=== PATIENT | male | born 1945 | race American Indian/Alaskan Native ===

== ENCOUNTER 2020-06-27 07:18 | Outpatient (REF) | payer MEDICARE, SELFPAY ==
[2020-06-27 09:14] LABS: MANUAL DIFF FLAG NO
[2020-06-27 09:37] LABS: Basophils Absolute Auto 0.1 X10*3/uL (0.0-0.2); Basophils Percent Auto 0.8 % (0-2); Eosinophils Absolute Auto 0.4 X10*3/uL (0.0-0.4); Eosinophils Percent Auto 5.9 % (0-4); Hemoglobin 16.2 g/dl (14.0-18.0); Imm Gran Abs Auto 0.01 X10*3/uL (0.00-0.03); Imm Gran Pct Auto 0.1 % (0.0-0.4); Lymphocytes Absolute Auto 2.6 X10*3/uL (1.2-4.9); Lymphocytes Percent Auto 35.3 % (20-40); Mean Corpuscular HGB Conc 32.4 g/dl (31.0-36.0); Mean Corpuscular Hemoglobin 31.7 pg (27.0-33.0); Mean Corpuscular Volume 97.8 fL (80-98); Mean Platelet Volume 11.4 fL (9.4-12.4); Monocytes Absolute Auto 0.7 X10*3/uL (0.1-1.2); Monocytes Percent Auto 8.7 % (2-11); Neutrophils Absolute Auto 3.7 X10*3/uL (2.0-8.3); Neutrophils Percent Auto 49.2 % (45-73); Platelet Count 215 X10*3/uL (160-400); Red Blood Count 5.11 X10*6/uL (4.60-5.80); Red Cell Distribution Width 13.3 % (11.0-16.0); White Blood Count 7.5 X10*3/uL (4.8-10.8)
[2020-06-27 10:11] LABS: Anion Gap 12 (12-20); Blood Urea Nitrogen 16 mg/dL (9-16); Calcium 8.9 mg/dL (8.4-10.2); Carbon Dioxide 29 mmol/L (22-29); Chloride 106 mmol/L (96-108); Cholesterol 173 mg/dL; Estimated Glomerular Filt Rate > 60; Glucose Fasting 91 mg/dL (60-99); HDL Cholesterol 34 mg/dL; LDL Cholesterol Calculated 116 mg/dl; Potassium 4.2 mmol/l (3.3-5.1); Sodium 143 mmol/L (135-145); Triglycerides 117 mg/dL
== END 2020-06-27 07:19 | disposition home or self-care (01) ==
LOC: HO.LAB 07:18
PROVIDERS: PCP Internal Medicine; Visit Provider Internal Medicine
DX: I10 Essential (primary) hypertension (principal)
CPT/HCPCS: 36415; 80048; 80061; 85025

== ENCOUNTER 2020-07-28 07:36 | Outpatient (REF) | payer MEDICARE, SELFPAY ==
--- NOTE | 2020-07-28 07:41 | EMG_ITS ---
Bilateral median and ulnar motor and sensory studies were performed. Bilateral radial sensory studies were performed and paraspinal muscles were tested with a needle. IMPRESSION: [id number] right and mild left median neuropathy across carpal tunnel. MD JACQUELYN Tanner/FELICIANO / [phone]
== END 2020-07-28 07:37 | disposition home or self-care (01) ==
LOC: HO.NEURO 07:36
PROVIDERS: Visit Provider Internal Medicine
DX: G56.13 Other lesions of median nerve, bilateral upper limbs (principal)
CPT/HCPCS: 95860; 95886; 95911

== ENCOUNTER → 2020-10-11 12:23 | Outpatient (BNVA) | payer MEDICARE, SELFPAY | PROVIDERS: Visit Provider Orthopaedic Surgery | DX: G56.01 Carpal tunnel syndrome, right upper limb (principal); G56.02 Carpal tunnel syndrome, left upper limb | CPT/HCPCS: 99202 ==

== ENCOUNTER 2020-10-31 12:53 | Day surgery (SDC) | payer MEDICARE, SELFPAY ==
[2020-10-31 13:39] VITALS: BMI 32.3
[2020-10-31 13:41] VITALS: BP 154/74; PULSE 74; RESP 20; TEMP 36.9; O2SAT 96
--- NOTE | 2020-10-31 14:03 | W.PM.OPN ---
Operative Note Operative Note Date of Service: 10/31/20 Narrative: Preop diagnosis: 1. Left Carpal tunnel syndrome Postop diagnosis: 1. Left Carpal tunnel syndrome Procedure: 1. Left Carpal tunnel release Surgeon: Bonnie Bhatia MD Anesthesia: local block using 1% lidocaine with epinephrine Findings: Thickened transverse carpal ligament. EBL: Less than 5 mL Specimens: None Complications: None Disposition: Brought to recovery room in stable condition Plan: Follow-up for 7-10 days for wound check and suture removal Indications: The patient is 74 years old, with left carpal tunnel syndrome that has been unresponsive to nonoperative management. The risks and benefits of operative treatment including but not limited to risk of damage to blood vessels, nerves, tendons, infection, persistent pain, persistent symptoms, or possible need for additional surgery were discussed with the patient and the patient wishes to proceed with surgery. Procedure: Once consent was obtained a local block was performed using a combination of 1% lidocaine with epinephrine. The patient was then brought back to the operating suite and placed on the operative table in supine position. A tourniquet was applied to the proximal aspect of the left upper extremity and the limb was prepped and draped in a standard surgical fashion. Once assured that we had a good block, a 1.5 cm longitudinal incision was made centered over the left carpal tunnel. The incision was made through the skin to the subcutaneous tissues using a #15 blade. Dissection was made down to the level of the transverse carpal ligament with care being taken to protect the palmar cutaneous nerve. Once the transverse carpal ligament was clearly visualized, a longitudinal incision was made in the transverse carpal ligament 1st using a #15 blade, then using tenotomy scissors under direct visualization. Care was taken to look for and protect the motor branch of the median nerve when seen in this area. Once satisfied with our carpal tunnel release the wound was copiously irrigated with normal saline and hemostasis was obtained with a brief period of local pressure. The skin edges were reapproximated with some 5.0 nylon suture material and a sterile dressing was applied. The patient appears to have tolerated the procedure well and with no complications. All digits were well vascularized at the conclusion of the case. A
--- NOTE | 2020-10-31 14:17 | PC.NURSE ---
DR. Suzan GAITAN COMPLETED A LOCAL BL0CK AT BEDSIDE. PT TOLERATED WITHOUT DIFFICULTY.
[2020-10-31 15:22] VITALS: BP 148/73; PULSE 72; RESP 18; TEMP 36.6
== END 2020-10-31 15:44 | disposition home or self-care (01) ==
PROVIDERS: PCP Internal Medicine; Visit Provider Orthopaedic Surgery
PROC: (CPT 64721; principal; 2020-10-31 14:10)
DX: G56.02 Carpal tunnel syndrome, left upper limb (principal); F17.210 Nicotine dependence, cigarettes, uncomplicated
CPT/HCPCS: 64721

== ENCOUNTER → 2020-11-09 09:20 | Outpatient (BNVA) | payer MEDICARE, SELFPAY | PROVIDERS: PCP Internal Medicine; Visit Provider Orthopaedic Surgery | DX: G56.01 Carpal tunnel syndrome, right upper limb (principal); G56.02 Carpal tunnel syndrome, left upper limb | CPT/HCPCS: 99212 ==

== ENCOUNTER 2020-12-08 12:31 | Day surgery (SDC) | payer MEDICARE, SELFPAY ==
--- NOTE | 2020-12-08 12:41 | MHC.SHP ---
Pre-Procedural Eval Section B Chief Complaint: carpal tunnel syndrome Allergies: Allergies Allergy/AdvReac Type Severity Reaction Status Date / Time No Known Allergies Allergy Verified 11/09/20 09:30 Plan I have reviewed the history and physical and performed a pertinent physical examination on my patient. No changes have occurred unless specified.
--- NOTE | 2020-12-08 12:42 | W.PM.OPN ---
Operative Note Operative Note Date of Service: 12/08/20 Narrative: Preop diagnosis: 1. Right Carpal tunnel syndrome Postop diagnosis: 1. Right Carpal tunnel syndrome Procedure: 1. Right Carpal tunnel release Surgeon: Bonnie Bhatia MD Anesthesia: local block using 1% lidocaine with epinephrine Findings: Thickened transverse carpal ligament. EBL: Less than 5 mL Specimens: None Complications: None Disposition: Brought to recovery room in stable condition Plan: Follow-up for 7-10 days for wound check and suture removal Indications: The patient is 75 years old, with right carpal tunnel syndrome that has been unresponsive to nonoperative management. The risks and benefits of operative treatment including but not limited to risk of damage to blood vessels, nerves, tendons, infection, persistent pain, persistent symptoms, or possible need for additional surgery were discussed with the patient and the patient wishes to proceed with surgery. Procedure: Once consent was obtained a local block was performed using a combination of 1% lidocaine with epinephrine. The patient was then brought back to the operating suite and placed on the operative table in supine position. A tourniquet was applied to the proximal aspect of the right upper extremity and the limb was prepped and draped in a standard surgical fashion. Once assured that we had a good block, a 1.5 cm longitudinal incision was made centered over the right carpal tunnel. The incision was made through the skin to the subcutaneous tissues using a #15 blade. Dissection was made down to the level of the transverse carpal ligament with care being taken to protect the palmar cutaneous nerve. Once the transverse carpal ligament was clearly visualized, a longitudinal incision was made in the transverse carpal ligament 1st using a #15 blade, then using tenotomy scissors under direct visualization. Care was taken to look for and protect the motor branch of the median nerve when seen in this area. Once satisfied with our carpal tunnel release the wound was copiously irrigated with normal saline and hemostasis was obtained with a brief period of local pressure. The skin edges were reapproximated with some 5.0 nylon suture material and a sterile dressing was applied. The patient appears to have tolerated the procedure well and with no complications. All digits were well vascularized at the conclusion of the case.
[2020-12-08 12:47] VITALS: BMI 33.2
[2020-12-08 12:49] VITALS: BP 141/75; PULSE 74; RESP 16; TEMP 36.2; O2SAT 95
[2020-12-08 14:09] VITALS: BP 122/62; PULSE 67; RESP 18; O2SAT 93
== END 2020-12-08 14:18 | disposition home or self-care (01) ==
PROVIDERS: PCP Internal Medicine; Visit Provider Orthopaedic Surgery
PROC: (CPT 64721; principal; 2020-12-08 14:00)
DX: G56.01 Carpal tunnel syndrome, right upper limb (principal); F17.210 Nicotine dependence, cigarettes, uncomplicated
CPT/HCPCS: 64721

== ENCOUNTER → 2020-12-19 08:46 | Outpatient (BNVA) | payer MEDICARE, SELFPAY | PROVIDERS: PCP Internal Medicine; Visit Provider Orthopaedic Surgery | DX: G56.01 Carpal tunnel syndrome, right upper limb (principal); G56.02 Carpal tunnel syndrome, left upper limb | CPT/HCPCS: 99212 ==

== ENCOUNTER 2021-03-24 13:36 | Outpatient (REF) | payer MEDICARE, SELFPAY ==
--- NOTE | ~2021-03-24 | XR_ITS ---
EXAMINATION: XR WRIST, RIGHT XR WRIST, LEFT CLINICAL INFORMATION: Pain. COMPARISON: Left hand pain dated 02/11/2012. TECHNIQUE: AP, oblique, scaphoid, and lateral views of the right and left wrist. FINDINGS: Right Wrist: No acute fracture or dislocation. Mild joint space narrowing with small marginal osteophytes at the triscaphe and 1st carpometacarpal joints. No osseous erosion. Dystrophic ossification adjacent to the 2nd metacarpal. Left Wrist: No acute fracture or dislocation. Tiny marginal osteophyte at the triscaphe and 1st carpometacarpal joints. No osseous erosion. No abnormal soft tissue calcification. XR/XR wrist LT 2V IMPRESSION: RIGHT WRIST: Minimal degenerative arthritis at the triscaphe and 1st carpometacarpal joints. LEFT WRIST: Minimal degenerative arthritis at the triscaphe and 1st carpometacarpal joints.
--- NOTE | ~2021-03-24 | XR_ITS ---
EXAMINATION: XR WRIST, RIGHT XR WRIST, LEFT CLINICAL INFORMATION: Pain. COMPARISON: Left hand pain dated 02/11/2012. TECHNIQUE: AP, oblique, scaphoid, and lateral views of the right and left wrist. FINDINGS: Right Wrist: No acute fracture or dislocation. Mild joint space narrowing with small marginal osteophytes at the triscaphe and 1st carpometacarpal joints. No osseous erosion. Dystrophic ossification adjacent to the 2nd metacarpal. Left Wrist: No acute fracture or dislocation. Tiny marginal osteophyte at the triscaphe and 1st carpometacarpal joints. No osseous erosion. No abnormal soft tissue calcification. XR/XR wrist RT 2V IMPRESSION: RIGHT WRIST: Minimal degenerative arthritis at the triscaphe and 1st carpometacarpal joints. LEFT WRIST: Minimal degenerative arthritis at the triscaphe and 1st carpometacarpal joints.
== END 2021-03-24 13:37 | disposition home or self-care (01) ==
LOC: HO.XRAY 13:36
PROVIDERS: PCP Internal Medicine; Visit Provider Internal Medicine
DX: M25.532 Pain in left wrist (principal); M25.531 Pain in right wrist
CPT/HCPCS: 73100

== ENCOUNTER 2021-04-27 12:56 | Outpatient (REF) | payer MEDICARE, SELFPAY ==
--- NOTE | ~2021-04-27 | US_ITS ---
EXAMINATION: NONINVASIVE ASSESSMENT OF THE ARTERIES OF BOTH LOWER EXTREMITIES Yareil Howell MD CLINICAL INFORMATION: Peripheral vascular disease TECHNIQUE: Bilateral lower extremity duplex ultrasound was performed with velocity measurements and waveform analysis in the common femoral arteries, profunda femoris arteries, proximal mid and distal superficial femoral arteries, popliteal arteries and tibial vessels. This study was performed only at rest. COMPARISON: None FINDINGS: Velocities in cm/sec and phasicity as well as the presence of plaque are reported below. RIGHT LEG: Minimal plaque is present and triphasic flow is noted throughout with the exception of the posterior tibial artery which has biphasic flow. Collateral vessels can be seen arising from the posterior tibial artery. The right peroneal was not seen. Common Femoral: 120 Profunda Femoris: 182 Proximal SFA: 127 Mid SFA: 86 Distal SFA: 15 Popliteal: 72 Posterior tibial: 153 LEFT LEG: Minimal plaque present with moderate plaque in the popliteal. Triphasic flow noted down to the popliteal with the exception of the proximal SFA where there is biphasic flow. The posterior tibial artery is occluded but the peroneal is patent. Common Femoral: 120 Profunda Femoris: 72 Proximal SFA: 93 Mid SFA: 97 Distal SFA: 103 Popliteal: 93 Posterior tibial: Occluded Peroneal artery: 60 US/US arterial duplex LE BI IMPRESSION: There is peripheral vascular disease present, minimal on the right was mild plaque and runoff via the posterior tibial artery with occluded peroneal. Disease on the left shows an occluded posterior tibial artery with runoff via the peroneal only.
== END 2021-04-27 12:57 | disposition home or self-care (01) ==
LOC: HO.US 12:56
PROVIDERS: Visit Provider Internal Medicine
DX: I73.9 Peripheral vascular disease, unspecified (principal); I77.1 Stricture of artery
CPT/HCPCS: 93925

== ENCOUNTER 2021-07-20 07:49 | Outpatient (REF) | payer MEDICARE, SELFPAY ==
[2021-07-20 08:10] LABS: MANUAL DIFF FLAG NO
[2021-07-20 09:15] LABS: Basophils Absolute Auto 0.1 X10*3/uL (0.0-0.2); Basophils Percent Auto 0.7 % (0-2); Eosinophils Absolute Auto 0.4 X10*3/uL (0.0-0.4); Hemoglobin 15.4 g/dl (14.0-18.0); Imm Gran Abs Auto 0.01 X10*3/uL (0.00-0.03); Imm Gran Pct Auto 0.1 % (0.0-0.4); Mean Corpuscular HGB Conc 33.5 g/dl (31.0-36.0); Mean Corpuscular Hemoglobin 31.6 pg (27.0-33.0); Mean Corpuscular Volume 94.5 fL (80.0-98.0); Mean Platelet Volume 11.2 fL (9.4-12.4); Monocytes Absolute Auto 0.6 X10*3/uL (0.1-1.2); Monocytes Percent Auto 8.2 % (2-11); Neutrophils Absolute Auto 4.2 x10*3/uL (2.0-8.3); Platelet Count 183 X10*3/uL (160-400); Red Blood Count 4.87 X10*6/uL (4.60-5.80); Red Cell Distribution Width 13.4 % (11.0-16.0); White Blood Count 7.2 X10*3/uL (4.8-10.8)
[2021-07-20 09:32] LABS: Alanine Aminotransferase 18 U/L (0-40); Albumin Level 3.9 g/dL (3.5-5.0); Alkaline Phosphatase 75 U/L (39-117); Anion Gap 10 (12-20); Aspartate Amino Transferase 19 U/L (5-37); Bilirubin Total 0.8 mg/dL (0.0-1.0); Blood Urea Nitrogen 19 mg/dL (9-16); Carbon Dioxide 26 mmol/L (22-29); Chloride 107 mmol/L (96-108); Cholesterol 153 mg/dL; Estimated Glomerular Filt Rate > 60; Glucose Fasting 96 mg/dL (60-99); HDL Cholesterol 31 mg/dL; LDL Cholesterol Calculated 101 mg/dl; Potassium 4.1 mmol/L (3.3-5.1); Sodium 139 mmol/L (135-145); Total Protein 6.8 g/dL (6.5-8.0); Triglycerides 107 mg/dL
[2021-07-20 10:10] LABS: Prostate Specific Antigen Scr 9.03 ng/mL (<0.05-4.0); Thyroid Stimulating Hormone 1.64 uIU/mL (0.32-4.0)
== END 2021-07-20 07:50 | disposition home or self-care (01) ==
LOC: HO.LAB 07:49
PROVIDERS: PCP Internal Medicine; Visit Provider Internal Medicine
DX: Z00.00 Encounter for general adult medical examination without abnormal findings (principal); Z12.5 Encounter for screening for malignant neoplasm of prostate; E03.9 Hypothyroidism, unspecified; R35.1 Nocturia; E11.9 Type 2 diabetes mellitus without complications
CPT/HCPCS: 36415; 80053; 80061; 84153; 84443; 85025

== ENCOUNTER 2021-09-14 08:13 | Outpatient (REF) | payer MEDICARE, SELFPAY ==
[2021-09-14 11:25] LABS: Binax Internal Control QC Valid; Binax Now Covid-19 Ag Negative (Negative)
== END 2021-09-14 08:14 | disposition home or self-care (01) ==
LOC: HO.HMGCLDS 08:13
PROVIDERS: Visit Provider Internal Medicine
DX: Z20.822 Contact with and (suspected) exposure to COVID-19 (principal)
CPT/HCPCS: 36415; C9803

== ENCOUNTER 2021-11-14 08:00 | Outpatient (RCR) | payer MEDICARE, SELFPAY ==
[2021-09-19 08:13] VITALS: BP 114/65; PULSE 65
--- NOTE | 2021-09-19 09:16 | MHC.PT.EP ---
[facility] [place] Office [place] Office [place] Office [address] [place] [address] Dr Sebastián Parnell [address] [phone] F: [phone] F: [phone] F: [phone] F: [phone] Physical Therapy Plan of Care Date of Evaluation: Date of Surgery: Diagnosis: SHOULDER PAIN Assessment: 75 YO MALE REF TPO PT FOR Lt > Rt SH PAIN AFTER LIFTING 40 LB CONTAINER OF JASON LITTER IN JUN 2021- HE HAS A H/O APOLONIA CTS RELEASE; Pt HAS DECR AROM IN Lt > Rt SH, WEAKNESS IN LEFT > RIGHT SH GIRDLE/ SCAP, (+) SOFT TISSUE IRRIT IN APOLONIA TRAPS AND DELTS, (+) SCOLIOSIS W POSTURAL INFLUENCE, AND PAIN. FUNCTIONALLY, Pt FAVORS LEFT SH W ALL ADLs AND IS LIMITED W REACHING, LIFTING, CARRYING ITEMS. HE APPEARS TO HAVE RC INVOLVEMENT IN LEFT SH- HE IS A GOOD CANDIDATE FOR SKILLED PT TO ADDRESS THE ABOVE FINDINGS AND DEV A PROGR HEP (Pt VOICED CONCERN RE HIS CO-PAY AND CURRENT EXPENSES REQUIRED FOR ROOF REPAIR). Frequency and Duration: The patient will be seen 1- 2 x WK x 4 WKS Short Term Goals: Pt'S Lt > Rt SH PAIN DECR TO 2-3/10 IN 2 WKS Pt DEMON IMPROVED AROM LEFT SH IN 2 WKS Engineering Operations Leader Goals: Pt'S Lt SH GIRDLE STRENGTH IMPROVED BY 1/2 GRADE IN 4 WKS Pt INDEP W HEP PROGR AND SELF-SX MGMT TECHN IN 4 WKS Pt RESUME REG ADLs W DECR SXS EVIDENT W IMPROVED SPADI SCORE BY 5-8 POINTS (AT EVAL 61/130) IN 4 WKS Treatment Plan: Modalities to reduce pain, spasms and effusion. Manual therapy to restore motion and function. Therapeutic exercise to improve strength and flexibility. Neuromuscular re-education for posture and balance. Therapeutic activities to return to functional activities of daily living. Electronically signed by: Nakia Bryan,PT Please sign and return to therapist. Thank you for your referral.
--- NOTE | 2021-11-14 11:44 | MHC.PT.DC ---
[facility] [place] Office [place] Office [place] Office [address] Sebastián Parnell [address] [phone] F: [phone] F: [phone] F: [phone] F: [phone] Physical Therapy Discharge Report Diagnosis: SHOULDER PAIN Date of Surgery: Date of Evaluation: 09/19/21 Date of Discharge: 11/14/21 Treatments to Date: 10 Cancellations to Date: 1 No Shows to Date: 0 Discharge Status: Achieved Goals Improved Function Independent with HEP Discharge Summary: MR TOTH HAS PROGRESSED IN PT FOR HIS RIGHT SHOULDER PAIN, W RESPECT TO MULTIPLE JOINT PAIN/ LBP. Pt DEMON IMPROVED POSTURAL AWARENESS, INCR AROM Rt SH, INCREASED ACTIVITY/ FUNCT MOB DIEGO, AND FLUCTUATING LEVELS OF PAIN- NO LONGER CONSISTENT. HIS SPADI SCORE AT EVAL WAS 61/130 AND TODAY AT D/C, 55/130, REFLECTING IMPROVED FUNCTIONAL TOLERANCE/ INDEPENDENCE. Pt D/C THIS DATE W HIS HEP. HE MET HIS PT GOALS TO MAX POTENTIAL AT THIS TIME. Electronically signed by: Nakia Bryan,PT Please sign and return to therapist. Thank you for your referral.
== END 2021-11-14 11:45 | disposition home or self-care (01) ==
LOC: HO.PT 08:00
PROVIDERS: PCP Internal Medicine; Visit Provider Internal Medicine
DX: M25.511 Pain in right shoulder (principal); M25.512 Pain in left shoulder
CPT/HCPCS: 97110; 97161

== ENCOUNTER 2021-12-22 09:11 | Outpatient (REF) | payer MEDICARE, SELFPAY ==
[2021-12-22 10:30] LABS: Prostate Specific Antigen Scr 10.82 ng/mL (<0.05-4.0)
== END 2021-12-22 09:12 | disposition home or self-care (01) ==
LOC: HO.LAB 09:11
PROVIDERS: PCP Internal Medicine; Visit Provider Internal Medicine
DX: Z12.5 Encounter for screening for malignant neoplasm of prostate (principal)
CPT/HCPCS: 36415; 84153

== ENCOUNTER → 2022-01-23 10:24 | Outpatient (BNVA) | payer MEDICARE, SELFPAY | PROVIDERS: PCP Internal Medicine; Visit Provider Urology | DX: N41.1 Chronic prostatitis (principal); R97.20 Elevated prostate specific antigen [PSA] | CPT/HCPCS: 99202 ==

== ENCOUNTER 2022-02-28 09:49 | Outpatient (REF) | payer MEDICARE, SELFPAY ==
[2022-02-28 11:11] LABS: PSA,Total (Free>4and<10) 9.26 ng/mL (0.00-4.00)
[2022-03-01 12:06] LABS: Free Prostate Spec Ag 0.8 ng/mL; Percent Free Prostate Spec Ag NOT CALCULATED % (calc) (>25); Prostate Specific Ag Total 10.4 ng/mL (< OR = 4.0)
== END 2022-02-28 09:50 | disposition home or self-care (01) ==
LOC: HO.LAB 09:49
PROVIDERS: PCP Internal Medicine; Visit Provider Urology
DX: Z12.5 Encounter for screening for malignant neoplasm of prostate (principal); R97.20 Elevated prostate specific antigen [PSA]
CPT/HCPCS: 36415; 84153; 84154

== ENCOUNTER → 2022-03-07 10:39 | Outpatient (BNVA) | payer MEDICARE, SELFPAY | PROVIDERS: PCP Internal Medicine; Visit Provider Urology | DX: N41.1 Chronic prostatitis (principal); N52.9 Male erectile dysfunction, unspecified; N40.1 Benign prostatic hyperplasia with lower urinary tract symptoms; N13.8 Other obstructive and reflux uropathy; R33.8 Other retention of urine | CPT/HCPCS: 99212 ==

== ENCOUNTER 2022-06-29 09:25 | Outpatient (REF) | payer MEDICARE, SELFPAY ==
[2022-06-29 11:48] LABS: Prostate Specific Antigen 6.19 ng/mL (<0.05-4.0)
== END 2022-06-29 09:26 | disposition home or self-care (01) ==
LOC: HO.LAB 09:25
PROVIDERS: PCP Internal Medicine; Visit Provider Urology
DX: R97.20 Elevated prostate specific antigen [PSA] (principal); Z12.5 Encounter for screening for malignant neoplasm of prostate
CPT/HCPCS: 36415; 84153

== ENCOUNTER → 2022-07-06 14:40 | Outpatient (BNVA) | payer MEDICARE, SELFPAY | PROVIDERS: PCP Internal Medicine; Visit Provider Urology | DX: R97.20 Elevated prostate specific antigen [PSA] (principal); N41.1 Chronic prostatitis; N52.9 Male erectile dysfunction, unspecified | CPT/HCPCS: 99212 ==

== ENCOUNTER 2022-09-24 14:05 | Outpatient (REF) | payer MEDICARE, SELFPAY ==
[2022-09-24 14:33] LABS: COVID-19 Test Negative (Negative); IDNOW Serial# BCCEAD1C
== END 2022-09-24 14:06 | disposition home or self-care (01) ==
LOC: HO.LAB 14:05
PROVIDERS: Visit Provider Internal Medicine
DX: Z20.822 Contact with and (suspected) exposure to COVID-19 (principal)
CPT/HCPCS: 87635; C9803

== ENCOUNTER 2022-12-28 10:13 | Outpatient (REF) | payer MEDICARE, SELFPAY ==
[2022-12-28 12:03] LABS: PSA,Total (Free>4and<10) 7.15 ng/mL (0.00-4.00)
[2023-01-01 10:09] LABS: Free Prostate Spec Ag 0.5 ng/mL; Percent Free Prostate Spec Ag 8 % (calc) (>25); Prostate Specific Ag Total 5.9 ng/mL (< OR = 4.0)
== END 2022-12-28 10:14 | disposition home or self-care (01) ==
LOC: HO.LAB 10:13
PROVIDERS: PCP Internal Medicine; Visit Provider Urology
DX: Z12.5 Encounter for screening for malignant neoplasm of prostate (principal); R97.20 Elevated prostate specific antigen [PSA]
CPT/HCPCS: 36415; 84153; 84154

== ENCOUNTER → 2023-01-04 08:56 | Outpatient (BNVA) | payer MEDICARE, SELFPAY | PROVIDERS: PCP Internal Medicine; Visit Provider Urology | DX: N52.9 Male erectile dysfunction, unspecified (principal); N41.1 Chronic prostatitis | CPT/HCPCS: 99212 ==

== ENCOUNTER 2023-02-27 06:23 | Outpatient (REF) | payer MEDICARE, SELFPAY ==
[2023-02-27 06:32] LABS: MANUAL DIFF FLAG NO
[2023-02-27 07:42] LABS: Basophils Percent Auto 0.4 % (0-2); Eosinophils Absolute Auto 0.3 X10*3/uL (0.0-0.4); Eosinophils Percent Auto 3.9 % (0-4); Hematocrit 45.3 % (42.0-52.0); Imm Gran Abs Auto 0.03 X10*3/uL (0.00-0.03); Imm Gran Pct Auto 0.4 % (0.0-0.4); Lymphocytes Absolute Auto 2.7 X10*3/uL (1.2-4.9); Lymphocytes Percent Auto 34.6 % (20-40); Mean Corpuscular HGB Conc 33.1 g/dl (31.0-36.0); Mean Corpuscular Hemoglobin 31.8 pg (27.0-33.0); Mean Platelet Volume 11.9 fL (9.4-12.4); Monocytes Absolute Auto 0.7 X10*3/uL (0.1-1.2); Monocytes Percent Auto 8.4 % (2-11); Neutrophils Absolute Auto 4.2 x10*3/uL (2.0-8.3); Neutrophils Percent Auto 52.3 % (45-73); Platelet Count 207 X10*3/uL (160-400); Red Blood Count 4.72 X10*6/uL (4.60-5.80); Red Cell Distribution Width 13.7 % (11.0-16.0); White Blood Count 7.9 X10*3/uL (4.8-10.8)
[2023-02-27 08:07] LABS: Alanine Aminotransferase 18 U/L (0-40); Albumin Level 4.1 g/dL (3.5-5.0); Alkaline Phosphatase 76 U/L (39-117); Anion Gap 13 (12-20); Aspartate Amino Transferase 19 U/L (5-37); Bilirubin Total 0.9 mg/dL (0.0-1.0); Blood Urea Nitrogen 18 mg/dL (9-16); Calcium 9.3 mg/dL (8.4-10.2); Carbon Dioxide 25 mmol/L (22-29); Chloride 109 mmol/L (96-108); Cholesterol 155 mg/dL; Estimated Glomerular Filt Rate > 60; Glucose Fasting 97 mg/dL (60-99); HDL Cholesterol 35 mg/dL; LDL Cholesterol Calculated 101 mg/dl; Potassium 4.1 mmol/L (3.3-5.1); Sodium 143 mmol/L (135-145); Total Protein 7.2 g/dL (6.5-8.0); Triglycerides 95 mg/dL
[2023-02-27 08:22] LABS: Thyroid Stimulating Hormone 1.74 uIU/mL (0.32-4.0)
== END 2023-02-27 06:24 | disposition home or self-care (01) ==
LOC: HO.LAB 06:23
PROVIDERS: PCP Internal Medicine; Visit Provider Internal Medicine
DX: E03.9 Hypothyroidism, unspecified (principal); D64.9 Anemia, unspecified; I10 Essential (primary) hypertension; E78.5 Hyperlipidemia, unspecified
CPT/HCPCS: 36415; 80053; 80061; 84443; 85025

== ENCOUNTER 2023-04-03 08:34 | Outpatient (AMB) | payer MEDICARE, SELFPAY ==
--- NOTE | 2023-04-03 08:40 | MHC.PC.OV ---
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 Accompanied by: Self / Same As Patient Allergies No Known Allergies Allergy (Verified 04/03/23 08:40) Medication List - Last Reconciled 04/03/23 by Freddy Johnston MD amlodipine 10 mg PO DAILY atenolol 25 mg PO DAILY cyclobenzaprine 10 mg PO TID dicyclomine 20 mg PO QID finasteride 5 mg PO DAILY 90 days furosemide 20 mg PO DAILY naproxen 500 mg PO BID tizanidine 4 mg PO Q8H PRN Tobacco use date assessed: 02/26/23 Fall risk assessment: 1 Fall in past year Last assessed Fall Risk: 04/03/23 Dental Screening Dental Screen Date: 04/03/23 Did you have a dental visit in the last 12 months?: Yes Was dental information given to patient?: Patient has dentist HPI 3mth f/u HPI Details HTN spinal stenosis and OA knees; will be seeing ortho [facility] Medical History Obesity Surgical History History of carpal tunnel surgery History of lumbar laminectomy Family History Father No problems noted. Mother No problems noted. Daughter Mental health disorder Social History Housing: House Alcohol intake: current Alcohol intake frequency: holidays/special occasions only Patient Tobacco Use Status: Current someday Tobacco user e-Cigarette/Vaping Use: Never Used Second Hand Smoke Exposure: No service: No Current occupational status: retired Cognitive needs: No Hearing needs: No Vision needs: No Questionnaire PHQ-9 Over the last 2 weeks, how often have you been bothered by any of the following problems? Depression Screening Interpretation: Negative Source: Developed by Drs. Joe Gonzalez, Lauren Basurto, Raj Pugh and colleagues, with an educational ferdinand from [employer]. Thrive Questionnaire Date Thrive assessed: 10/01/22 Currently or been in a relationship where the following occur: no concerns reported HANSEL-7 AMB Questionnaire HANSEL-7 Date HANSEL - 7 assessed: 10/01/22 Source: Developed by Drs. Joe Gonzalez, Lauren Basurto, Raj Pugh and colleagues, with an educational ferdinand from [employer]. Review of Systems Const Denies chills, Denies headache(s) and Denies weight loss ENT Denies headache(s) Card Denies chest pain, Denies syncope, Denies irregular heart rhythm and Denies dyspnea Resp Denies chest congestion, Denies cough and Denies dyspnea GI Denies abdominal pain, Denies change in stool character, Denies nausea and Denies vomiting Musc Denies deformity and Denies joint swelling Neuro Denies syncope and Denies headache(s) Physical exam (Primary Care) Vital Signs: Last Vital Signs Pulse 55 04/03/23 08:42 BP 128/60 04/03/23 08:42 Pulse Ox 97 04/03/23 08:42 BMI result Body Mass Index 31.4 Tobacco/Smoking Status: Tobacco use Status Tobacco use date assessed 02/26/23 04/03/23 08:41 Patient Tobacco Use Status Current someday Tobacco 04/03/23 08:41 e-Cigarette/Vaping Use Never Used 04/03/23 08:41 Depression Screening Interpretation: Negative Thrive Assessment: Date of Thrive Assessment Date Thrive assessed 10/01/22 04/03/23 08:41 Currently or been in a relationship where the following occur: no concerns reported Const General: cooperative, comfortable and no acute distress Resp Effort & Inspection: normal respiratory effort Auscultation: clear to auscultation bilaterally Percussion: percussion normal Cardio Jugular venous distension: no JVD Rate: regular rate Rhythm: regular rhythm GI Inspection: Yes normal to inspection Assessment and Plan Assessment & Plan (1) Hypertension: Code(s): I10 - Essential (primary) hypertension Plan: stable; same rx (2) Spinal stenosis: Code(s): M48.00 - Spinal stenosis, site unspecified Plan: stable; (3) Arthritis of knee: Code(s): M17.10 - Unilateral primary osteoarthritis, unspecified knee Plan: per ortho Medications: Refilled atenolol 25 mg PO DAILY 90 tabs 8RF Coding Level of Care Code Tele Est Pt Level 4 (21824) Diagnoses Hypertension I10 Spinal stenosis M48.00 Arthritis of knee M17.10
[2023-04-03 08:42] VITALS: BP 128/60; PULSE 55; O2SAT 97; BMI 31.4
== END 2023-04-03 08:54 | disposition home or self-care (01) ==
PROVIDERS: PCP Internal Medicine; Visit Provider Internal Medicine
DX: I10 Essential (primary) hypertension (principal); M48.00 Spinal stenosis, site unspecified; M17.10 Unilateral primary osteoarthritis, unspecified knee
CPT/HCPCS: 99214

== ENCOUNTER 2023-05-08 12:43 | Outpatient (AMB) | payer MEDICARE, SELFPAY ==
--- NOTE | 2023-05-08 12:45 | A.OFFVIS_ITS ---
Intake Vital Signs 05/08/23 12:46 Height 6 ft 1 in Weight 234 lb 9.149 oz BMI 30.9 BP 122/61 Blood Pressure Location Rt brachial Position Sitting Pulse 58 Intake Visit Reasons: unspecified abdominal pain Intake Note: Patient presents to in office visit today as a new patient for unspecified abdominal pain. CC: Patient reports using Miralax for constipation. Patient c/o left lower back pain with radiation to his left lower abdomen and left leg. Last colonoscopy about 7 years ago here at [facility] [place]. He also reports he's had his Left leg numbed for about 15 years. 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 He is referred by Freddy Johnston. PMX Hypertension Obesity Spinal stenosis Erectile dysfunction Chronic prostatitis Carpal tunnel syndrome * SURGICAL HISTORY Carpal tunnel release Lumbar laminectomy Colonoscopy 2016 Muniz=hyperplastic polyps. * ALLERGIES: NKDA * [facility] LABS: Laboratory Tests 02/27/23 02/27/23 06:30 06:30 WBC 7.9 Hgb 15.0 Hct 45.3 Plt Count 207 Estimated GFR > 60 Total Bilirubin 0.9 AST 19 ALT 18 Alkaline Phosphata se 76 TSH 1.74 TODAY'S VISIT The patient seems to think that most of his pain is coming from his back. He says i've had a few back operations and I have a spinal stim. About 4 mos ago he was bending over to get something and his left leg gave out under him and he fell. No LOC. He says he has occasional pain in the left lower abdomen, but he feels it is all coming from my back. He usually seen [facility] but has not seen them since 2014. He is unsure if his stim battery needs to be changed. He will be seeing them soon but has not seen them since 2014. He will be seeing them 06/23. 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 I feel it is not working well enough, he will only move his bowels every 2 days or so. The pain in the groin comes and goes and is transient and it like a little stabbing. It is not r/t his BM's and he eats well. I will start him on a trail of senna, since his stools vary from hard to loose at times with the Miralax. His last colonoscopy was when I was 70. I look this up and he had one in [address] Muniz and has a hx of only hyperplastic polyps. ROV after 06/23. PFSH Medical History Obesity Surgical History H/O colonoscopy History of carpal tunnel surgery History of lumbar laminectomy Family History Father No problems noted. Mother No problems noted. Daughter Mental health disorder Social History Housing: House Alcohol intake: current Alcohol intake frequency: holidays/special occasions only Patient Tobacco Use Status: Current someday Tobacco user e-Cigarette/Vaping Use: Never Used Second Hand Smoke Exposure: No Advance Directives: No Advance Directives Information Provided: No service: No Current occupational status: retired Cognitive needs: No Hearing needs: No Vision needs: No Review of Systems Const Denies fatigue, Denies fever(s), Denies night sweats, Denies poor appetite and Denies weight loss ENT Reports Normal hearing present, Denies dental pain, Denies dysphagia, Denies hearing loss, Denies mouth pain, Denies odynophagia, Denies throat swelling, Denies tongue swelling and Reports other (Dentition adequate) Card Reports no additional complaints Resp Reports no additional complaints GI Reports abdominal pain, Denies melena, Denies bloating, Denies hematochezia, Reports constipation, Denies GI cramping, Denies dysphagia, Denies excessive flatus, Denies early satiety, Denies heartburn, Denies diarrhea, Denies nausea, Denies odynophagia, Denies vomiting and Denies hematemesis Skin/Breast Denies pruritus, Denies lesions, Denies rash and Denies jaundice Neuro Reports Normal hearing present and Denies Abnormal speech present Endo Denies fatigue Aller/Immun Denies throat swelling and Denies tongue swelling Physical Exam Vital Signs: Last Vital Signs Pulse 58 05/08/23 12:46 BP 122/61 05/08/23 12:46 BMI result Body Mass Index 30.9 Const General: cooperative, no acute distress, well developed and well groomed Nutritional Appearance: well nourished and obese morbidly obese Orientation/consciousness: oriented to person, oriented to place and oriented to time Limitations: No language barrier HEENT Other: rhinophyma Head: Yes normocephalic and Yes atraumatic Teeth and gingiva: poor dentition Eyes General: appearance normal, both eyes and all related structures Pupils: Equal, round and reactive pupils present Neck Neck: Yes normal visual inspection and Yes no lymphadenopathy Thyroid: Thyroid normal Resp Effort & Inspection: normal respiratory effort and able to speak in complete sentences Auscultation: clear to auscultation bilaterally Cardio Rate: regular rate Rhythm: regular rhythm Heart sounds: Normal, physiologic split S2 sound present Peripheral pulses: radial pulses present and posterior tibial pulses present GI Inspection: No distended, No Abdominal panniculus present and Yes obesity Palpation (GI): Soft to palpation, Tenderness to palpation present (GI) (very mild) in the LLQ, no guarding, not rigid and No hepatosplenomegaly present Percussion: Yes normal to percussion Auscultation: normal bowel sounds Rectal Exam - Male: Yes deferred Back/Spine/Pelvis Other: drags right leg toe drop with bilateral feet gait Skin General skin exam: no rashes or lesions noted, turgor normal, skin not dry, no jaundice, No spider nevi and no striae Rashes: no rashes Nails: normal Neuro General: oriented to person, oriented to place and oriented to time Cranial nerves: Yes Equal, round and reactive pupils present and Yes Normal h earing present Speech: No Abnormal speech present Extrem General: Yes normal to inspection, No clubbing, No cyanosis, Yes edema and Yes venous stasis dermatitis (caryl mild) Psych Appearance: grossly normal and well kempt Mental Status: mental status grossly normal Speech and movement: Normal speech and movement present Affect: normal affect Attitude: cooperative Thought process: Normal thought process present and not confabulating Thought content: Normal thought content present Insight: Fair insight present (Psych) Judgement: Fair judgement present (Psych) Assessment & Plan Assessment & Plan (1) Constipation: Code(s): K59.00 - Constipation, unspecified Plan: The patient seems to think that most of his pain is coming from his back. He says i've had a few back operations and I have a spinal stim. About 4 mos ago he was bending over to get something and his left leg gave out under him and he fell. No LOC. He says he has occasional pain in the left lower abdomen, but he feels it is all coming from my back. He usually seen [facility] but has not seen them since 2014. He is unsure if his stim battery needs to be changed. He will be seeing them soon but has not seen them since 2014. He will be seeing them 06/23. 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 I feel it is not working well enough, he will only move his bowels every 2 days or so. The pain in the groin comes and goes and is transient and it like a little stabbing. It is not r/t his BM's and he eats well. I will start him on a trail of senna, since his s tools vary from hard to loose at times with the Miralax. His last colonoscopy was when I was 70. I look this up and he had one [place] [address] Muniz and has a hx of only hyperplastic polyps. ROV after 06/23. Medications: New sennosides (Senna Laxative) 17.2 mg (2 x 8.6 mg) PO BEDTIME 60 tabs 3RF K59.00 - Constipation, unspecified Coding Level of Care Code New Pt Level 3 (43333) Diagnoses Constipation K59.00
[2023-05-08 12:46] VITALS: BP 122/61; PULSE 58; BMI 30.9
== END 2023-05-08 13:40 | disposition home or self-care (01) ==
PROVIDERS: PCP Internal Medicine; Visit Provider Nurse Practitioner
DX: K59.00 Constipation, unspecified (principal)
CPT/HCPCS: 99203

== ENCOUNTER → 2023-05-08 12:43 | Outpatient (BNVA) | payer MEDICARE, SELFPAY | PROVIDERS: PCP Internal Medicine; Visit Provider Nurse Practitioner ==

== ENCOUNTER 2023-05-23 12:44 | Outpatient (AMB) | payer MEDICARE, SELFPAY ==
[2023-05-23 12:48] VITALS: BP 138/62; PULSE 55; O2SAT 98; BMI 31.1
--- NOTE | 2023-05-23 12:48 | A.OFFPC_ITS ---
Vital Signs 05/23/23 12:48 Height 6 ft 1 in Weight 236 lb BMI 31.1 BP 138/62 Blood Pressure Location Lt brachial Position Sitting Pulse 55 Pulse Source Pulse Oximeter Pulse Oximetry (%) 98 Oxygen Delivery Method Room Air Intake Visit Reasons: 3mth f/u Pathology Secretary/Transcriptionist: Not Required per policy Accompanied by: Self / Same As Patient Allergies No Known Allergies Allergy (Verified 05/23/23 12:48) Medication List - Last Reconciled 05/23/23 by Freddy Johnston MD amlodipine 10 mg PO DAILY atenolol 25 mg PO DAILY cyclobenzaprine 10 mg PO TID dicyclomine 20 mg PO QID finasteride 5 mg PO DAILY 90 days furosemide 20 mg PO DAILY naproxen 500 mg PO BID polyethylene glycol 3350 (Miralax) 17 grams PO DAILY PRN sennosides (Senna Laxative) 17.2 mg (2 x 8.6 mg) PO BEDTIME tizanidine 4 mg PO Q8H PRN Tobacco use date assessed: 02/26/23 Fall risk assessment: 1 Fall in past year Last assessed Fall Risk: 05/23/23 Dental Screening Dental Screen Date: 05/23/23 Did you have a dental visit in the last 12 months?: Yes Did you have a dental problem in the last 6 months where you did not have access to dental care?: No Was dental information given to patient?: Patient has dentist HPI 3mth f/u HPI Details HTN on rx; doing well; compliant [facility] Medical History Obesity Surgical History H/O colonoscopy History of carpal tunnel surgery History of lumbar laminectomy Family History Father No problems noted. Mother No problems noted. Daughter Mental health disorder Social History Housing: House Alcohol intake: current Alcohol intake frequency: holidays/special occasions only Patient Tobacco Use Status: Current someday Tobacco user e-Cigarette/Vaping Use: Never Used Second Hand Smoke Exposure: No service: No Current occupational status: retired Cognitive needs: No Hearing needs: No Vision needs: No Questionnaire PHQ-9 Over the last 2 weeks, how often have you been bothered by any of the following problems? 1. Little interest or pleasure in doing things: not at all 2. Feeling down, depressed, or hopeless: not at all 3. Trouble falling or staying asleep, or sleeping too much: not at all 4. Feeling tired or having little energy: not at all 5. Poor appetite or overeating: not at all 6. Feeling bad about yourself - or that you are a failure or have let yourself or your family down: not at all 7. Trouble concentrating on things, such as reading the newspaper or watching television: not at all 8. Moving or speaking so slowly that other people could have noticed. Or the opposite - being so fidgety or restless that you have been moving around a lot more than usual: not at all 9. Thoughts that you would be better off or of hurting yourself in some way: not at all Total score: 0 Depression Screening Interpretation: Negative Source: Developed by Drs. Joe Gonzalez, Raj Hunter and colleagues, with an educational ferdinand from [employer]. Thrive Questionnaire Date Thrive assessed: 10/01/22 AUDIT C Alcohol Use Questionnaire (AUDIT-C) 1. How often do you have a drink containing alcohol?: Monthly or less 2. How many drinks containing alcohol do you have on a typical day when you are drinking?: 3 or 4 3. How often do you have six or more drinks on one occasion?: Never Total Score: 2 Score Reviewed/Action Taken: Yes HANSEL-7 AMB Questionnaire HANSEL-7 Date HANSEL - 7 assessed: 10/01/22 Source: Developed by Drs. Joe Gonzalez, Raj Hunter and colleagues, with an educational ferdinand from [employer]. Review of Systems Const Denies chills, Denies headache(s) and Denies weight loss ENT Denies headache(s) Card Denies chest pain, Denies syncope, Denies irregular heart rhythm and Denies dyspnea Resp Denies chest congestion, Denies cough and Denies dyspnea GI Denies abdominal pain, Denies change in stool character, Denies nausea and Denies vomiting Musc Denies deformity and Denies joint swelling Neuro Denies syncope and Denies headache(s) Physical exam (Primary Care) Vital Signs: Last Vital Signs Pulse 55 05/23/23 12:48 BP 138/62 05/23/23 12:48 Pulse Ox 98 05/23/23 12:48 Oxygen Delivery Method Room Air 05/23/23 12:48 BMI result Body Mass Index 31.1 Tobacco/Smoking Status: Tobacco use Status Tobacco use date assessed 02/26/23 05/23/23 12:49 Patient Tobacco Use Status Current someday Tobacco 05/23/23 12:49 e-Cigarette/Vaping Use Never Used 05/23/23 12:49 PHQ-9: PHQ-9 Score PHQ-9: Total score 0 05/23/23 12:49 Depression Screening Interpretation: Negative Thrive Assessment: Date of Thrive Assessment Date Thrive assessed 10/01/22 05/23/23 12:49 Const General: cooperative, comfortable, no acute distress and alert Neck Neck: Yes no lymphadenopathy Thyroid: Thyroid normal Resp Effort & Inspection: normal respiratory effort Auscultation: clear to auscultation bilaterally Percussion: percussion normal Cardio Jugular venous distension: no JVD Palpation: normal PMI Rate: regular rate Rhythm: regular rhythm Heart sounds: S1 normal heart sound present and S2 normal heart sound present GI Inspection: Yes normal to inspection Palpation (GI): No hepatosplenomegaly present Skin General skin exam: no rashes or lesions noted Extrem General: Yes no clubbing, cyanosis or edema Assessment and Plan Assessment & Plan (1) Hypertension: Code(s): I10 - Essential (primary) hypertension Plan: stable; same rx Coding Level of Care Code Est Pt Level 3 (06209) Diagnoses Hypertension I10
== END 2023-05-23 13:16 | disposition home or self-care (01) ==
PROVIDERS: PCP Internal Medicine; Visit Provider Internal Medicine
DX: I10 Essential (primary) hypertension (principal)
CPT/HCPCS: 99213

== ENCOUNTER 2023-06-05 15:58 | Emergency (ER) | payer MEDICARE, SELFPAY ==
--- NOTE | ~2023-06-05 | XR_ITS ---
EXAMINATION: XR SOFT TISSUE NECK CLINICAL INDICATION: Foreign body COMPARISON: None available. TECHNIQUE: 2 views of the soft tissue neck were obtained. FINDINGS: No foreign body is seen. The larynx is well-distended with air. The epiglottis is normal. Prevertebral soft tissues are normal. There is bilateral carotid calcification. Degenerative spondylosis of the spine. XR/XR soft tissue neck IMPRESSION: No foreign body seen.
--- NOTE | 2023-06-05 16:00 | ED.GENADULT ---
HPI - General Adult General Chief complaint: General Medical Stated complaint: object stuck in throat for 15 mins Time Seen by Provider: 06/05/23 18:48 Source: patient Mode of arrival: ambulatory Limitations: no limitations History of Present Illness HPI narrative: Patient apparently had food and his medication at 14:00 soon after that felt pill stuck in his throat but able to drink and eat no history of similar episode in the past speech is normal Related Data Home Medications Medication Instructions Recorded Confirmed polyethylene glycol 3350 17 17 g PO DAILY PRN 05/08/23 05/23/23 gram/dose oral powder (Miralax) Previous Rx's Medication Instructions Recorded furosemide 20 mg tablet 20 mg PO DAILY #90 tabs 08/27/22 finasteride 5 mg tablet 5 mg PO DAILY 90 days #90 tabs 01/04/23 tizanidine 4 mg tablet 4 mg PO Q8H PRN muscle spasticity 01/04/23 #60 tabs cyclobenzaprine 10 mg tablet 10 mg PO TID #60 tabs 02/15/23 naproxen 500 mg tablet 500 mg PO BID #180 tabs 03/01/23 atenolol 25 mg tablet 25 mg PO DAILY #90 tabs 04/03/23 amlodipine 10 mg tablet 10 mg PO DAILY #90 tabs 04/28/23 dicyclomine 20 mg tablet 20 mg PO QID #30 tabs 04/29/23 sennosides 8.6 mg tablet (Senna 17.2 mg (2 x 8.6 mg) PO BEDTIME 05/08/23 Laxative) #60 tabs Allergies Allergy/AdvReac Type Severity Reaction Status Date / Time No Known Allergies Allergy Verified 06/05/23 16:00 Review of Systems Review of Systems: Yes all other systems are reviewed and are negative [facility] Past Medical History Medical History Obesity Surgical History H/O colonoscopy History of carpal tunnel surgery History of lumbar laminectomy Family History Family History Father No problems noted. Mother No problems noted. Daughter Mental health disorder Social History Social History Housing: House Alcohol intake: current Alcohol intake frequency: holidays/special occasions only Patient Tobacco Use Status: Current someday Tobacco user e-Cigarette/Vaping Use: Never Used Second Hand Smoke Exposure: No Advance Directives: No Advance Directives Information Provided: No service: No Current occupational status: retired Cognitive needs: No Hearing needs: No Vision needs: No Physical Exam ED Vital Signs: Vital Signs - 24 hr 06/05/23 16:02 Temperature 98 F Pulse Rate 67 Respiratory Rate 18 Blood Pressure 142/99 H Pulse Oximetry 97 Oxygen Delivery Method Room Air BMI result Body Mass Index 33.0 Appearance: Alert. Oriented X3. Anxious Eyes: PERRLA, No Nystagmus ENT: Pharynx normal. Oral Mucosa moist no stridor Neck: Normal inspection. Neck supple. CVS: Normal heart rate and rhythm. Pulses normal. Respiratory: No respiratory distress. Equal air entry bilateral, no wheezing/rales/rhonchi Abdomen: Soft and nontender. Bowel sounds are present, Extremities: No lower extremity edema. Neuro: Oriented X 3. Course Course Course Narrative: RME: 77yo M w/PMHx obesity, arthritis, spinal stenosis, prostatitis, HTN, presents to the ED complaining of foreign body sensation in back of throat s/p eating sandwich & taking some of his pills 30 minutes [employer]LECT[employer]QUIPMENT [employer]. Admits tried to wash down fluid/drinking at home w/o relief. denies drooling SOB, difficulty swallowing, N/V Lungs CTA, Oropharynx clear, uvula midline, uvula midline, no FB appreciated Full HPI, ROS and PE to be performed by primary ED provider. Medications Administered Discontinued Medications Generic Name Dose Route Start Last Admin Trade Name Freq PRN Reason Stop Dose Admin Lidocaine HCl 15 ml 06/05/23 19:12 06/05/23 19:29 Lidocaine Hcl Viscous 2 % 15 Ml Solution MUCOUS MEM 06/05/23 19:13 15 ml ONCE ONE Administration Medical Decision Making Medical Decision Making [facility] Narrative: Patient's soft tissue neck x-ray negative for any foreign body patient able to drink and eat likely from irritation from the medication he had Radiology Impression Discussion of test interpretation with radiology: I have reviewed the radiologist's reading. Radiologist Impression: XR/XR soft tissue neck IMPRESSION: No foreign body seen. Discharge Plan Discharge Clinical Impression: Sensation of foreign body Patient Disposition: Home, Self-Care Instructions: Foreign Body in Pharynx (ED) Additional Instructions: Drink plenty of fluids Foreign body sensation will go with time If problem continues or have difficulty in swallowing or drinking see Computer Systems Administrator Prescriptions: No Action furosemide 20 mg tablet 20 mg PO DAILY Qty: 90 8RF tizanidine 4 mg tablet 4 mg PO Q8H PRN (Reason: muscle spasticity) Qty: 60 3RF naproxen 500 mg tablet 500 mg PO BID Qty: 180 8RF amlodipine 10 mg tablet 10 mg PO DAILY Qty: 90 0RF dicyclomine 20 mg tablet 20 mg PO QID Qty: 30 3RF atenolol 25 mg tablet 25 mg PO DAILY Qty: 90 8RF cyclobenzaprine 10 mg tablet 10 mg PO TID Qty: 60 5RF finasteride 5 mg tablet 5 mg PO DAILY 90 Days Qty: 90 2RF polyethylene glycol 3350 [Miralax] 17 gram/dose powder 17 g PO DAILY PRN sennosides [Senna Laxative] 8.6 mg tablet 17.2 mg PO BEDTIME Qty: 60 3RF Referrals: Isai Forte [Physician] - 2 weeks Interventions: ED Discharge Assessment Last Done: 06/05/23 19:42 Discharge Date/Time: 06/05/23 19:43
[2023-06-05 16:02] VITALS: BP 142/99; PULSE 67; RESP 18; TEMP 36.6; O2SAT 97; BMI 33.0
--- NOTE | 2023-06-05 19:10 | PC.NURSE ---
Provider Anwer in with pt. Pt able to drink and swallow gingerale Plan of care ongoing.
--- NOTE | 2023-06-05 19:26 | PC.NURSE ---
pt in Xray
[2023-06-05] MEDS: Lidocaine HCl Viscous 2 % 15 ML SOLUTION MUCOUS MEM (19:29)
== END 2023-06-05 19:43 | disposition home or self-care (01) ==
PROVIDERS: Emergency Provider Internal Medicine; PCP Internal Medicine
DX: R09.89 Other specified symptoms and signs involving the circulatory and respiratory systems (principal)
CPT/HCPCS: 70360; 99283

== ENCOUNTER 2023-07-04 07:14 | Outpatient (REF) | payer MEDICARE, SELFPAY ==
[2023-07-04 08:48] LABS: PSA,Total (Free>4and<10) 7.79 ng/mL (0.00-4.00)
[2023-07-05 10:18] LABS: Free Prostate Spec Ag 0.4 ng/mL; Percent Free Prostate Spec Ag 6 % (calc) (>25); Prostate Specific Ag Total 6.9 ng/mL (< OR = 4.0)
== END 2023-07-04 07:15 | disposition home or self-care (01) ==
LOC: HO.LAB 07:14
PROVIDERS: Visit Provider Urology
DX: Z12.5 Encounter for screening for malignant neoplasm of prostate (principal); R97.20 Elevated prostate specific antigen [PSA]
CPT/HCPCS: 36415; 84153; 84154

== ENCOUNTER 2023-07-05 09:41 | Outpatient (AMB) | payer MEDICARE, SELFPAY ==
--- NOTE | 2023-07-05 10:19 | A.OFFVIS_ITS ---
Intake Intake Visit Reasons: 6m/PSA(psa?) Intake Note: Patient is Present for Telephone Follow Up Urology Med: Finasteride, Antibiotic Allergy:None Blood Thinner:None Pharamcy: [employer] Allergies No Known Allergies Allergy (Verified 07/24/23 12:54) HPI HPI Comments History of Present Illness Details Rene is a pleasant male. He is a patient of Dr. Moody. He is seen for the following urologic conditions - elevated PSA - chronic prostatitis - erectile dysfunction Telemedicine Evaluation 15 min Consultation [employer] Rhett Video attempted Weak stream Trial tamsulosin PSA slow climb with low percentage High probability prostate cancer PCPT - high grade prostate cancer 50%, low- grade prostate cancer 40% Six month follow-up with finasteride Elevated PSA Recommend biopsy previously PSA 01/17 2.2, 07/30 9.0, 12/29 10.8, 02/28 10.0, 06/30 6.2, 12/30 5.9 8%, 07/01 6.9 6% Current therapy finasteride Understands the risks and benefits with potential delay in diagnosis Erectile dysfunction No prior medications Unable to maintain Trial Viagra [facility] Medical History Obesity Surgical History H/O colonoscopy History of carpal tunnel surgery History of lumbar laminectomy Family History Father No problems noted. Mother No problems noted. Daughter Mental health disorder Social History Housing: House Alcohol intake: current Alcohol intake frequency: holidays/special occasions only Patient Tobacco Use Status: Current someday Tobacco user e-Cigarette/Vaping Use: Never Used Second Hand Smoke Exposure: No service: No Current occupational status: retired Cognitive needs: No Hearing needs: No Vision needs: No Review of Systems Const All systems reviewed & are unremarkable except as noted in HPI and below Reports no additional complaints Resp Reports no additional complaints GI Reports no additional complaints Reports as per HPI Musc Reports no additional complaints Physical Exam Telemedicine evaluation Appropriate responses Regular breathing rate and rhythm HEENT Head: Yes normal to inspection Ears: hearing grossly normal bilaterally Eyes General: appearance normal, both eyes and all related structures Neck Neck: Yes normal visual inspection Chest Chest palpation & inspection: normal inspection of the chest Resp Effort & Inspection: normal respiratory effort and able to speak in complete s entences Assessment & Plan Assessment & Plan (1) Elevated PSA: Code(s): R97.20 - Elevated prostate specific antigen [PSA] (2) Chronic prostatitis: Code(s): N41.1 - Chronic prostatitis Plan Two month follow-up PVR Patient Instructions: Imaging studies, laboratory and physical exam results were discussed and reviewed in detail. No major barriers to patient understanding were identified. An opportunity to ask questions regarding the treatment plan was provided. All questions were answered. The patient expressed understanding and agreement with the above treatment plan. The patient is aware they should contact our office by phone for worsening of their current condition or the appearance of new urologic symptoms. Compliance is encouraged with any medications and followup testing that is ordered. It is a privilege to participate in the urologic care of your patient. If you have any questions or concerns regarding treatment for the above conditions, or other urologic issues, please do not hesitate to contact me. The office telephone contact is [phone]. This note is constructed using voice recognition software. While every effort has been made to ensure accuracy grout machine operator errors may have been included. Yours sincerely, Dr Aries Mina MD, [facility] U[facility] Providers of Expert, Compassionate Care for the Genitourinary System Telehealth Telehealth Location of provider rendering services: practice address Location of patient: address on file Patient Identification confirmed using: Name, : Yes Telehealth method: voice only Patient verbally consented to treatment: Yes Patient verbally consented to billing insurance company: Yes Patient informed of any privacy concerns related to visit: Yes Coding Level of Care Code Tele Est Pt Level 4 (80185) Diagnoses Elevated PSA R97.20 Chronic prostatitis N41.1
== END 2023-07-05 11:45 | disposition home or self-care (01) ==
LOC: HO.HUSH 09:41
PROVIDERS: PCP Internal Medicine; Visit Provider Urology
DX: R97.20 Elevated prostate specific antigen [PSA] (principal); N41.1 Chronic prostatitis
CPT/HCPCS: 99442

== ENCOUNTER → 2023-07-05 09:41 | Outpatient (BNVA) | payer MEDICARE, SELFPAY | PROVIDERS: PCP Internal Medicine; Visit Provider Urology ==

== ENCOUNTER 2023-07-19 09:46 | Outpatient (AMB) | payer MEDICARE, SELFPAY ==
--- NOTE | 2023-07-19 09:46 | MHC.OFFVIS ---
Intake Intake Visit Reasons: psa Results Allergies No Known Allergies Allergy (Verified 07/05/23 10:21) Medication List - Last Reconciled 07/19/23 by Aries Mina MD amlodipine 10 mg PO DAILY atenolol 25 mg PO DAILY cyclobenzaprine 10 mg PO TID dicyclomine 20 mg PO QID finasteride 5 mg PO DAILY 90 days furosemide 20 mg PO DAILY naproxen 500 mg PO BID polyethylene glycol 3350 (Miralax) 17 grams PO DAILY PRN sennosides (Senna Laxative) 17.2 mg (2 x 8.6 mg) PO BEDTIME tamsulosin 0.4 mg PO BEDTIME 30 days tizanidine 4 mg PO Q8H PRN HPI HPI Comments History of Present Illness Details Rene is a pleasant male. He is a patient of Dr. Moody. He is seen for the following urologic conditions - elevated PSA - chronic prostatitis - erectile dysfunction - LUTS Telemedicine Evaluation 15 min Consultation Doxtibdit Rhett Video attempted Trial alpha-jackie PSA slow climb with low percentage High probability prostate cancer PCPT - high grade prostate cancer 50%, low-grade prostate cancer 40% Lower urinary tract symptoms Progressive weakness of stream Waking 2-3 times per night Trial alpha-jackie to finasteride Elevated PSA Recommend biopsy previously PSA 01/17 2.2, 07/30 9.0, 12/29 10.8, 02/28 10.0, 06/30 6.2, 12/30 5.9 8%, 07/01 6.9 6% Current therapy finasteride Understands the risks and benefits with potential delay in diagnosis Erectile dysfunction No prior medications Unable to maintain Trial Viagra [facility] Medical History Obesity Surgical History H/O colonoscopy History of carpal tunnel surgery History of lumbar laminectomy Family History Father No problems noted. Mother No problems noted. Daughter Mental health disorder Social History Housing: House Alcohol intake: current Alcohol intake frequency: holidays/special occasions only Patient Tobacco Use Status: Current someday Tobacco user e-Cigarette/Vaping Use: Never Used Second Hand Smoke Exposure: No service: No Current occupational status: retired Cognitive needs: No Hearing needs: No Vision needs: No Review of Systems Const All systems reviewed & are unremarkable except as noted in HPI and below Reports no additional complaints Resp Reports no additional complaints GI Reports no additional complaints Reports as per HPI Musc Reports no additional complaints Physical Exam Telemedicine evaluation Appropriate responses Regular breathing rate and rhythm HEENT Head: Yes normal to inspection Ears: hearing grossly normal bilaterally Eyes General: appearance normal, both eyes and all related structures Neck Neck: Yes normal visual inspection Chest Chest palpation & inspection: normal inspection of the chest Resp Effort & Inspection: normal respiratory effort and able to speak in complete sentences Assessment & Plan Assessment & Plan (1) Nocturia more than twice per night: Code(s): R35.1 - Nocturia (2) Bladder outlet obstruction: Code(s): N32.0 - Bladder-neck obstruction Plan Trial tamsulosin 2 month follow-up Medications: New tamsulosin 0.4 mg PO BEDTIME 30 days 30 caps 1RF N32.0 - Bladder-neck obstruction, N40.1 - Benign prostatic hyperplasia with lower urinary tract symptoms, R35.1 - Nocturia Patient Instructions: Imaging studies, laboratory and physical exam results were discussed and reviewed in detail. No major barriers to patient understanding were identified. An opportunity to ask questions regarding the treatment plan was provided. All questions were answered. The patient expressed understanding and agreement with the above treatment plan. The patient is aware they should contact our office by phone for worsening of their current condition or the appearance of new urologic symptoms. Compliance is encouraged with any medications and followup testing that is ordered. It is a privilege to participate in the urologic care of your patient. If you have any questions or concerns regarding treatment for the above conditions, or other urologic issues, please do not hesitate to contact me. The office telephone contact is [phone]. This note is constructed using voice recognition software. While every effort has been made to ensure accuracy fuel attendant errors may have been included. Yours sincerely, Dr Aries Mina MD, [facility] - Urology Providers of Expert, Compassionate Care for the Genitourinary System Telehealth Telehealth Location of provider rendering services: practice address Location of patient: address on file Patient Identification confirmed using: Name, : Yes Telehealth method: video Patient verbally consented to treatment: Yes Patient verbally consented to billing insurance company: Yes Patient informed of any privacy concerns related to visit: Yes Coding Level of Care Code Tele Est Pt Level 4 (40677) Diagnoses Nocturia more than twice per night R35.1 Bladder outlet obstruction N32.0
== END 2023-07-19 10:07 | disposition home or self-care (01) ==
LOC: HO.HUSH 09:46
PROVIDERS: PCP Internal Medicine; Visit Provider Urology
DX: R35.1 Nocturia (principal); N32.0 Bladder-neck obstruction
CPT/HCPCS: 99214

== ENCOUNTER → 2023-07-19 09:46 | Outpatient (BNVA) | payer MEDICARE, SELFPAY | PROVIDERS: PCP Internal Medicine; Visit Provider Urology ==

== ENCOUNTER 2023-07-24 12:53 | Outpatient (AMB) | payer MEDICARE, SELFPAY ==
[2023-07-24 12:54] VITALS: BP 136/70; PULSE 50; O2SAT 98; BMI 31.4
--- NOTE | 2023-07-24 12:54 | A.OFFPC_ITS ---
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: Not Required per policy Accompanied by: Self / Same As Patient Allergies No Known Allergies Allergy (Verified 07/24/23 12:54) Medication List - Last Reconciled 07/24/23 by Freddy Johnston MD amlodipine 10 mg PO DAILY atenolol 25 mg PO DAILY dicyclomine 20 mg PO QID finasteride 5 mg PO DAILY 90 days furosemide 20 mg PO DAILY naproxen 500 mg PO BID polyethylene glycol 3350 (Miralax) 17 grams PO DAILY PRN sennosides (Senna Laxative) 17.2 mg (2 x 8.6 mg) PO BEDTIME tamsulosin 0.4 mg PO BEDTIME 30 days tizanidine 4 mg PO Q8H PRN Tobacco use date assessed: 02/26/23 Fall risk assessment: 1 Fall in past year Last assessed Fall Risk: 07/24/23 Dental Screening Dental Screen Date: 07/24/23 Did you have a dental visit in the last 12 months?: Yes Did you have a dental problem in the last 6 months where you did not have access to dental care?: No HPI 08/08/23 Battery simulator Spine-Battery Removal HPI Details having a battery replaced in his spine stimulator; has HTN and BPH; no history of CAD PFSH Medical History Obesity Surgical History H/O colonoscopy History of carpal tunnel surgery History of lumbar laminectomy Family History Father No problems noted. Mother No problems noted. Daughter Mental health disorder Social History Housing: House Alcohol intake: current Alcohol intake frequency: holidays/special occasions only Patient Tobacco Use Status: Current someday Tobacco user e-Cigarette/Vaping Use: Never Used Second Hand Smoke Exposure: No service: No Current occupational status: retired Cognitive needs: No Hearing needs: No Vision needs: No Questionnaire PHQ-9 Over the last 2 weeks, how often have you been bothered by any of the following problems? 1. Little interest or pleasure in doing things: not at all 2. Feeling down, depressed, or hopeless: not at all 3. Trouble falling or staying asleep, or sleeping too much: not at all 4. Feeling tired or having little energy: not at all 5. Poor appetite or overeating: not at all 6. Feeling bad about yourself - or that you are a failure or have let yourself or your family down: not at all 7. Trouble concentrating on things, such as reading the newspaper or watching television: not at all 8. Moving or speaking so slowly that other people could have noticed. Or the opposite - being so fidgety or restless that you have been moving around a lot more than usual: not at all 9. Thoughts that you would be better off or of hurting yourself in some way: not at all Total score: 0 Depression Screening Interpretation: Negative Depression Screening Done: Yes Source: Developed by Drs. Joe Gonzalez, Lauren Basurto, Raj Pugh and colleagues, with an educational ferdinand from [employer]. Thrive Questionnaire Date Thrive assessed: 10/01/22 AUDIT C Alcohol Use Questionnaire (AUDIT-C) 1. How often do you have a drink containing alcohol?: Monthly or less 2. How many drinks containing alcohol do you have on a typical day when you are drinking?: 3 or 4 3. How often do you have six or more drinks on one occasion?: Never Total Score: 2 Score Reviewed/Action Taken: Yes HANSEL-7 AMB Questionnaire HANSEL-7 Date HANSEL - 7 assessed: 10/01/22 Source: Developed by Drs. Joe Gonzalez, Raj Hunter and colleagues, with an educational ferdinand from [employer]. Review of Systems Const Denies chills, Denies fatigue, Denies headache(s) and Denies weight loss Eyes Denies change in vision, Denies diplopia and Denies eye pain ENT Denies vertigo, Denies dizziness, Denies headache(s) and Denies nasal discharge Card Denies chest pain, Denies rapid heart rate and Denies dyspnea on exertion Resp Denies chest congestion, Denies cough, Denies pain with cough and Denies dyspnea on exertion GI Denies abdominal pain, Denies hematochezia and Denies change in bowel habits Musc Denies myalgias, Denies arthralgias and Denies joint swelling Skin/Breast Denies lesions and Denies unusual bruising Neuro Denies vertigo, Denies dizziness, Denies headache(s) and Denies focal weakness Endo Denies fatigue Physical exam (Primary Care) Vital Signs: Last Vital Signs Pulse 50 07/24/23 12:54 BP 136/70 07/24/23 12:54 Pulse Ox 98 07/24/23 12:54 Oxygen Delivery Method Room Air 07/24/23 12:54 BMI result Body Mass Index 31.4 Tobacco/Smoking Status: Tobacco use Status Tobacco use date assessed 02/26/23 07/24/23 13:01 Patient Tobacco Use Status Current someday Tobacco 07/24/23 13:01 e-Cigarette/Vaping Use Never Used 07/24/23 13:01 PHQ-9: PHQ-9 Score PHQ-9: Total score 0 07/24/23 13:01 Depression Screening Interpretation: Negative Thrive Assessment: Date of Thrive Assessment Date Thrive assessed 10/01/22 07/24/23 13:01 Const General: cooperative, healthy appearing and no acute distress Orientation/consciousness: oriented to person, oriented to place and oriented to time [facility] Head: Yes normal to inspection, Yes normocephalic and Yes atraumatic Mouth: Normal oral and palatal mucosa present and tongue normal Throat: Yes posterior oropharynx normal and Yes uvula midline Eyes General: appearance normal, both eyes and all related structures Neck Neck: Yes normal visual inspection, Yes full ROM and Yes no lymphadenopathy Thyroid: Thyroid normal Carotids: normal carotid upstroke Chest Chest palpation & inspection: normal inspection of the chest Resp Effort & Inspection: normal respiratory effort and able to speak in complete sentences Auscultation: clear to auscultation bilaterally Cardio Jugular venous distension: no JVD Palpation: normal PMI Rate: regular rate Rhythm: regular rhythm Heart sounds: S1 normal heart sound present and S2 normal heart sound present GI Inspection: Yes normal to inspection Palpation (GI): Soft to palpation and No hepatosplenomegaly present Auscultation: normal bowel sounds General: Yes no CVA tenderness Back/Spine/Pelvis Back: no CVA tenderness Skin General skin exam: no rashes or lesions noted Neuro General: oriented to person, oriented to place and oriented to time Extrem General: Yes normal to inspection and Yes full ROM Assessment and Plan Assessment & Plan (1) Preop exam for internal medicine: Code(s): Z01.818 - Encounter for other preprocedural examination Plan: low risk for cardiovascular complications; cleared for surgery (2) Hypertension: Code(s): I10 - Essential (primary) hypertension Plan: stable; same rx (3) Bladder outlet obstruction: Code(s): N32.0 - Bladder-neck obstruction Plan: stable; same rx Orders: Orders ECG 12 lead EKG Today M54.9 - Dorsalgia, unspecified Prothrombin Time INR Today Z01.818 - Encounter for other preprocedural examination Basic Metabolic Panel Today Z01.818 - Encounter for other preprocedural examination Complete Blood Count Auto Diff Today D64.9 - Anemia, unspecified Coding Level of Care Code Est Pt Level 4 (54659) Diagnoses Preop exam for internal medicine Z01.81 Hypertension I10 Bladder outlet obstruction N32.0
== END 2023-07-24 13:13 | disposition home or self-care (01) ==
PROVIDERS: PCP Internal Medicine; Visit Provider Internal Medicine
DX: Z01.818 Encounter for other preprocedural examination (principal); I10 Essential (primary) hypertension; N32.0 Bladder-neck obstruction
CPT/HCPCS: 99214

== ENCOUNTER → 2023-07-24 13:23 | Outpatient (REF) | payer MEDICARE, SELFPAY ==
[2023-07-24 13:37] LABS: MANUAL DIFF FLAG NO
--- NOTE | 2023-07-24 13:37 | ECG_ITS ---
Test Reason : DORSALGIA, UNSPEC Blood Pressure : / mmHG Vent. Rate : 048 BPM Atrial Rate : 048 BPM P-R Int : 186 ms QRS Dur : 100 ms QT Int : 462 ms P-R-T Axes : 077 049 063 degrees QTc Int : 412 ms Sinus bradycardia RSR' or QR pattern in V1 suggests right ventricular conduction delay Borderline ECG When compared with ECG of 22-JUN-2015 14:35, No significant change was found Referred By: Freddy Johnston Electronically Signed By:MOE HOLT MD
[2023-07-24 14:36] LABS: Basophils Absolute Auto 0.1 X10*3/uL (0.0-0.2); Basophils Percent Auto 0.6 % (0-2); Eosinophils Absolute Auto 0.3 X10*3/uL (0.0-0.4); Eosinophils Percent Auto 3.5 % (0-4); Hematocrit 43.7 % (42.0-52.0); Hemoglobin 14.3 g/dl (14.0-18.0); Imm Gran Abs Auto 0.02 X10*3/uL (0.00-0.03); Imm Gran Pct Auto 0.2 % (0.0-0.4); Lymphocytes Absolute Auto 2.3 X10*3/uL (1.2-4.9); Lymphocytes Percent Auto 25.9 % (20-40); Mean Corpuscular HGB Conc 32.7 g/dl (31.0-36.0); Mean Corpuscular Hemoglobin 31.6 pg (27.0-33.0); Mean Corpuscular Volume 96.5 fL (80.0-98.0); Mean Platelet Volume 11.1 fL (9.4-12.4); Monocytes Absolute Auto 0.8 X10*3/uL (0.1-1.2); Monocytes Percent Auto 8.5 % (2-11); Neutrophils Absolute Auto 5.4 x10*3/uL (2.0-8.3); Neutrophils Percent Auto 61.3 % (45-73); Platelet Count 227 X10*3/uL (160-400); Red Blood Count 4.53 X10*6/uL (4.60-5.80); Red Cell Distribution Width 13.8 % (11.0-16.0); White Blood Count 8.8 X10*3/uL (4.8-10.8)
[2023-07-24 14:42] LABS: Prothrombin Time 11.6 SEC (11.1-13.3)
[2023-07-24 15:06] LABS: Anion Gap 11 (12-20); Blood Urea Nitrogen 19 mg/dL (9-16); Calcium 9.1 mg/dL (8.4-10.2); Carbon Dioxide 26 mmol/L (22-29); Chloride 110 mmol/L (96-108); Estimated Glomerular Filt Rate > 60; Glucose Random 87 mg/dL (60-115); Potassium 3.9 mmol/L (3.3-5.1); Sodium 143 mmol/L (135-145)
== END ==
LOC: HO.CARD 13:23
PROVIDERS: PCP Internal Medicine; Visit Provider Internal Medicine
DX: Z01.818 Encounter for other preprocedural examination (principal); R10.9 Unspecified abdominal pain; D64.9 Anemia, unspecified
CPT/HCPCS: 36415; 80048; 85025; 85610; 93005

== ENCOUNTER 2023-09-19 09:29 | Outpatient (AMB) | payer MEDICARE, SELFPAY ==
--- NOTE | 2023-09-19 09:52 | MHC.OFFVIS ---
Intake Intake Visit Reasons: 2m/PVR Intake Note: Patient is Present for Follow Up PVR Urology Medication: Finasteride, Tamsulosin Antibiotic Allergies: None Blood Thinners: None PVR: 30 Allergies No Known Allergies Allergy (Verified 09/19/23 09:52) Medication List - Last Reconciled 09/19/23 by Aries Mina MD amlodipine 10 mg PO DAILY atenolol 25 mg PO DAILY dicyclomine 20 mg PO QID finasteride 5 mg PO DAILY 90 days furosemide 20 mg PO DAILY naproxen 500 mg PO BID polyethylene glycol 3350 (Miralax) 17 grams PO DAILY PRN sennosides (Senna Laxative) 17.2 mg (2 x 8.6 mg) PO BEDTIME tamsulosin 0.4 mg PO BEDTIME 30 days tizanidine 4 mg PO Q8H PRN HPI HPI Comments History of Present Illness Details Rene is a pleasant male. He is a patient of Dr. Moody. He is seen for the following urologic conditions - elevated PSA - chronic prostatitis - erectile dysfunction - LUTS Follow-up from alpha-jackie trial PVR 30 cc Did notice some benefit but has variable nocturia Continue tamsulosin q.h.s. Continue finasteride Six month follow-up PSA PSA slow climb with low percentage High probability prostate cancer PCPT - high grade prostate cancer 50%, low-grade prostate cancer 40% Previously discussed prostate biopsy and this is being recommended. He understands the risks and benefits with potential delay in diagnosis. Lower urinary tract symptoms Progressive weakness of stream Waking 2-3 times per night Current medications include finasteride tamsulosin Elevated PSA Recommend biopsy previously PSA 01/17 2.2, 07/30 9.0, 12/29 10.8, 02/28 10.0, 06/30 6.2, 12/30 5.9 8%, 07/01 6.9 6% Current therapy finasteride Understands the risks and benefits with potential delay in diagnosis Erectile dysfunction No prior medications Unable to maintain Trial Viaa [facility] Medical History Obesity Surgical History H/O colonoscopy History of carpal tunnel surgery History of lumbar laminectomy Family History Father No problems noted. Mother No problems noted. Daughter Mental health disorder Social History Housing: House Alcohol intake: current Alcohol intake frequency: holidays/special occasions only Patient Tobacco Use Status: Current someday Tobacco user e-Cigarette/Vaping Use: Never Used Second Hand Smoke Exposure: No service: No Current occupational status: retired Cognitive needs: No Hearing needs: No Vision needs: No Review of Systems Const Denies chills and Denies fever(s) Card Reports no additional complaints and Denies syncope Resp Denies cough GI Denies abdominal pain and Denies heartburn Reports as per HPI and Denies change in libido Neuro Denies syncope Psych Denies change in libido Endo Denies change in libido Physical Exam Const General: cooperative, healthy appearing, comfortable and no acute distress Orientation/consciousness: patient oriented x3 HEENT Face and sinus: Yes normal facial exam Mouth: moist mucous membranes Neck Neck: Yes normal visual inspection, Yes full ROM and Yes trachea midline Chest Chest palpation & inspection: normal inspection of the chest Resp Effort & Inspection: normal respiratory effort, able to speak in complete sentences and no respiratory distress GI Inspection: Yes normal to inspection Back/Spine/Pelvis Cervical Spine: normal cervical lordosis Thoracic/Lumbar Spine: thoracic and lumbar spine normal to inspection Skin General skin exam: no rashes or lesions noted Neuro General: patient oriented x3, gait normal, tone normal and moves all extremities Extrem General: Yes normal to inspection and Yes capillary refill normal Office Procedures Post Void Residual Post Residual Void Post Void Residual (PVR): 30 [id number]-[id number] Void Residual by ultrasound Assessment & Plan Assessment & Plan (1) Bladder outlet obstruction: Code(s): N32.0 - Bladder-neck obstruction (2) Nocturia more than twice per night: Code(s): R35.1 - Nocturia (3) Elevated PSA: Code(s): R97.20 - Elevated prostate specific antigen [PSA] Plan 6 month follow-up PSA Orders: Orders AMB Post Void Residual by ultrasound Today R35.1 - Nocturia PSA,Total (Free>4and<10) 6 Months R97.20 - Elevated prostate specific antigen [PSA] Medications: Changed From tamsulosin 0.4 mg PO BEDTIME 30 days 30 caps 1RF N32.0 - Bladder-neck obstruction, N40.1 - Benign prostatic hyperplasia with lower urinary tract symptoms, R35.1 - Nocturia To tamsulosin 0.4 mg PO BEDTIME 90 caps 1RF 90 days N32.0 - Bladder-neck obstruction, N40.1 - Benign prostatic hyperplasia with lower urinary tract symptoms, R35.1 - Nocturia Refilled finasteride 5 mg PO DAILY 90 tabs 2RF 90 days N13.8 - Other obstructive and reflux uropathy, N40.1 - Benign prostatic hyperplasia with lower urinary tract symptoms, R33.9 - Retention of urine, unspecified Patient Instructions: Imaging studies, laboratory and physical exam results were discussed and reviewed in detail. No major barriers to patient understanding were identified. An opportunity to ask questions regarding the treatment plan was provided. All questions were answered. The patient expressed understanding and agreement with the above treatment plan. The patient is aware they should contact our office by phone for worsening of their current condition or the appearance of new urologic symptoms. Compliance is encouraged with any medications and followup testing that is ordered. It is a privilege to participate in the urologic care of your patient. If you have any questions or concerns regarding treatment for the above conditions, or other urologic issues, please do not hesitate to contact me. The office telephone contact is [phone]. This note is constructed using voice recognition software. While every effort has been made to ensure accuracy cable supervisor errors may have been included. Yours sincerely, Dr Aries Mina MD, [facility] - Urology Providers of Expert, Compassionate Care for the Genitourinary System Coding Level of Care Code Est Pt Level 3 (31023) Diagnoses Bladder outlet obstruction N32.0 Nocturia more than twice per night R35.1 Elevated PSA R97.20 CPT Codes Post Residual Void - PVR CPT Code: 31499-Wxay Void Residual by ultrasound ([id number])
== END 2023-09-19 10:25 | disposition home or self-care (01) ==
PROVIDERS: PCP Internal Medicine; Visit Provider Urology
DX: N32.0 Bladder-neck obstruction (principal); R35.1 Nocturia; R97.20 Elevated prostate specific antigen [PSA]
CPT/HCPCS: 99213

== ENCOUNTER → 2023-09-19 09:29 | Outpatient (BNVA) | payer MEDICARE, SELFPAY | PROVIDERS: PCP Internal Medicine; Visit Provider Urology | DX: N32.0 Bladder-neck obstruction (principal); R35.1 Nocturia; R97.20 Elevated prostate specific antigen [PSA] | CPT/HCPCS: 51798; 99212 ==

== ENCOUNTER 2023-09-24 12:31 | Emergency (ER) | payer MEDICARE, SELFPAY ==
[2023-09-24 12:33] VITALS: BP 135/70; PULSE 56; RESP 18; TEMP 36.4; O2SAT 95; BMI 33.9
--- NOTE | 2023-09-24 12:33 | ED.GENADULT ---
HPI - General Adult General Chief complaint: Wound/Laceration Stated complaint: l index finger laceration Time Seen by Provider: 09/24/23 13:06 Source: patient and RN notes reviewed Mode of arrival: ambulatory Limitations: no limitations History of Present Illness HPI narrative: This is a 77 year old male presenting to the ER with complaints of laceration to left second digit. He was cutting cardboard with a knife and accidentally lacerated his finger. He is right handed. No difficulty moving his finger. He is not on blood thinners. He is unsure if his tetanus is UTD. MD complaint: Finger laceration Onset (ago): day(s) Location: upper extremity Radiation: non-radiation Pain Consistency: constant Relieving factors: none Exacerbating factors: none Associated symptoms: denies other symptoms Treatments prior to arrival: none Related Data Home Medications Medication Instructions Recorded Confirmed polyethylene glycol 3350 17 17 g PO DAILY PRN 05/08/23 09/19/23 gram/dose oral powder (Miralax) Previous Rx's Medication Instructions Recorded furosemide 20 mg tablet 20 mg PO DAILY #90 tabs 08/27/22 naproxen 500 mg tablet 500 mg PO BID #180 tabs 03/01/23 atenolol 25 mg tablet 25 mg PO DAILY #90 tabs 04/03/23 sennosides 8.6 mg tablet (Senna 17.2 mg (2 x 8.6 mg) PO BEDTIME 05/08/23 Laxative) #60 tabs tizanidine 4 mg tablet 4 mg PO Q8H PRN muscle spasticity 07/19/23 #60 tabs amlodipine 10 mg tablet 10 mg PO DAILY #90 tabs 08/04/23 finasteride 5 mg tablet 5 mg PO DAILY 90 days #90 tabs 09/19/23 tamsulosin 0.4 mg capsule 0.4 mg PO BEDTIME 90 days #90 caps 09/19/23 acetaminophen 500 mg tablet 500 mg PO Q6H PRN pain #30 tabs 09/24/23 (Tylenol Extra Strength) cephalexin 500 mg capsule 500 mg PO BID 5 days #10 caps 09/24/23 dicyclomine 20 mg tablet 20 mg PO QID #30 tabs 09/27/23 Allergies Allergy/AdvReac Type Severity Reaction Status Date / Time No Known Allergies Allergy Verified 09/25/23 05:38 Review of Systems Review of Systems: Yes all other systems are reviewed and are negative ON LICENSE OF [facility] Past Medical History Attestation statement: The following information was validated with the patient. Onset Date is defined in the Problem List Problems that require an onset date and time if occurred within 24 hrs of arrival to the ED Aortic Dissection and Rupture; Neurologic impairment; Cardiopulmonary Arrest; Endotracheal Intubation; Insertion or Replacement of Mechanical Circulatory Assist Device Medical History Obesity Surgical History H/O colonoscopy History of carpal tunnel surgery History of lumbar laminectomy Family History Family History Father No problems noted. Mother No problems noted. Daughter Mental health disorder Social History Social History Housing: House Alcohol intake: current Alcohol intake frequency: holidays/special occasions only Patient Tobacco Use Status: Current someday Tobacco user e-Cigarette/Vaping Use: Never Used Second Hand Smoke Exposure: No Advance Directives: No Advance Directives Information Provided: No service: No Current occupational status: retired Cognitive needs: No Hearing needs: No Vision needs: No Physical Exam ED Vital Signs: Vital Signs - 24 hr 09/24/23 12:33 Temperature 97.5 F Pulse Rate 56 Respiratory Rate 18 Blood Pressure 135/70 Pulse Oximetry 95 Oxygen Delivery Method Room Air BMI result Body Mass Index 33.9 Const Other: General: Awake, alert, and oriented X3. No acute distress. HEENT: Normal inspection CVS: Normal heart rate and rhythm. Pulses normal. Respiratory: No respiratory distress Skin: left second digit overlying the middle phalange with 4cm linear partial thickness with active bleeding. Full ROM at the DIP and PIP. Sensation intact. Extremities: See above Neuro: Oriented X 3. No motor deficit. No sensory deficit. Course Course Course Narrative: This is a rapid medical exam: Additional HPI, ROS, PE not included below will be deferred to primary provider. Patient is a 77-year-old right-hand dominant male presenting to the ED with complaint of laceration to left index finger. States he was using a knife at home when it slipped causing the laceration. States he was attempting to scrape a board with a knife. Does not believe his tetanus is UTD. Approx 1 laceration to left index finger between IP joints, able to flex and extend finger. Actively bleeding, gauze applied. Plan: Tdap, will require sutures Medications Administered Discontinued Medications Generic Name Dose Route Start Last Admin Trade Name Emigdioq PRN Reason Stop Dose Admin Bacitracin 1 appl 09/24/23 14:40 09/24/23 14:50 Bacitracin Oint 0.9 Gm Packet TOPICAL 09/24/23 14:41 1 appl ONCE ONE Administration Protocol Diphtheria/Tetanus/Acell Pertussis 0.5 ml 09/24/23 12:36 09/24/23 13:00 Diphth,Pertus(Acell),Tet Adult 0.5 Ml Syringe IM 09/24/23 12:37 0.5 ml .ONCE ONE Administration Lidocaine HCl 5 ml 09/24/23 13:07 09/24/23 14:51 Lidocaine Hcl 1 % Mpf 5 Ml Vial INFILTRATI 09/24/23 13:08 Not Given ONCE STA Lidocaine HCl 5 ml 09/24/23 13:07 09/24/23 14:51 Lidocaine Hcl 1 % Mpf 5 Ml Vial INFILTRATI 09/24/23 13:08 Not Given ONCE ONE Lidocaine/Epinephrine 10 ml 09/24/23 13:12 09/24/23 14:51 Lidocaine Hcl 1%/Epi 1:100,000 10 Ml Vial INFILTRATI 09/24/23 13:13 10 ml ONCE ONE Administration Procedures Laceration Laceration 1: Site: hand Side (If applicable): left Size (cm): 4 Description: linear Depth: simple, single layer Local Anesthetic: lidocaine 1% and with epi Amount of anesthesia used (mL): 3.5 Pre-repair: wound explored, irrigated extensively and deep structures intact Skin layer closed with: nylon Size (cm): 4-0 Number of sutures: 7 Technique: simple, interrupted Medical Decision Making Medical Decision Making MDM Narrative: 77 y/o M presenting to the ER with complaints of 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 He has full ROM of his digit with no current concern of ligamentous injury. Wound was evaluatad by Dr. Lizama who recommends lidocaine with epinephrine given laceration is bleeding significantly, question vessel involvement. Bleeding controlled using lidocaine with epi - and 7 sutures placed. Pt tolerated procedure well - see procedure note. Placed on prophalyatic abx to prevent infection. Given orthopedic follow up if pt has any sensation or ROM difficulties, which pt does not have at today's visit. Pt understands and agrees with plan. Stable for d.c. Differential Diagnosis Differential Diagnoses: The differential diagnosis associated with the presentation includes laceration, puncture wound, avulsion, abrasion Discharge Plan Discharge Clinical Impression: Laceration of finger Patient Disposition: Home, Self-Care Instructions: Care For Your Stitches (ED), Finger Laceration (ED) Additional Instructions: Your seen in the emergency department due to a cut on your finger. We had to place 7 stitches in your finger. Please have the sutures removed in 10-14 days Please take prescribed antibiotic as directed. Please keep wound clean and dry, you may keep dressing on finger for 24 hours. Do not submerge wound. You may take Tylenol as needed. If any new or worsening symptoms occur including but not limited to fevers, chills, increased redness, drainage, please return for re-evaluation. Follow-up with orthopedics as needed for any decreased range of motion or sensation of your finger. Call to make an appointment Prescriptions: New cephalexin 500 mg capsule 500 mg PO BID 5 Days Qty: 10 0RF acetaminophen [Tylenol Extra Strength] 500 mg tablet 500 mg PO Q6H PRN (Reason: pain) Qty: 30 0RF No Action furosemide 20 mg tablet 20 mg PO DAILY Qty: 90 8RF naproxen 500 mg tablet 500 mg PO BID Qty: 180 8RF tizanidine 4 mg tablet 4 mg PO Q8H PRN (Reason: muscle spasticity) Qty: 60 3RF amlodipine 10 mg tablet 10 mg PO DAILY Qty: 90 0RF dicyclomine 20 mg tablet 20 mg PO QID Qty: 30 3RF atenolol 25 mg tablet 25 mg PO DAILY Qty: 90 8RF polyethylene glycol 3350 [Miralax] 17 gram/dose powder 17 g PO DAILY PRN sennosides [Senna Laxative] 8.6 mg tablet 17.2 mg PO BEDTIME Qty: 60 3RF finasteride 5 mg tablet 5 mg PO DAILY 90 Days Qty: 90 2RF tamsulosin 0.4 mg capsule 0.4 mg PO BEDTIME 90 Days Qty: 90 1RF Interventions: ED Discharge Assessment Last Done: 09/24/23 15:01 Discharge Date/Time: 09/24/23 15:01
[2023-09-24] MEDS: Diphth,Pertus(ACell),Tet Adult 0.5 ML SYRINGE IM (13:00)
[2023-09-24] MEDS: Bacitracin Oint 0.9 GM PACKET 1 APPL TOPICAL (14:50)
[2023-09-24] MEDS: Lidocaine HCl 1%/Epi 1:100,000 10 ML VIAL INFILTRATI (14:51)
== END 2023-09-24 15:01 | disposition home or self-care (01) ==
PROVIDERS: Emergency Provider Emergency Medicine Emergency Medical Services; PCP Internal Medicine
DX: S61.211A Laceration without foreign body of left index finger without damage to nail, initial encounter (principal); W26.0XXA Contact with knife, initial encounter; Y93.89 Activity, other specified; Y92.019 Unspecified place in single-family (private) house as the place of occurrence of the external cause; Y99.9 Unspecified external cause status; Z23 Encounter for immunization
CPT/HCPCS: 12002; 90471; 90715; 99282; 99284

== ENCOUNTER 2023-09-25 05:37 | Emergency (ER) | payer MEDICARE, SELFPAY ==
[2023-09-25 05:38] VITALS: BP 140/65; PULSE 62; RESP 20; TEMP 36.6; O2SAT 96; BMI 30.4
== END 2023-09-25 07:46 | disposition left against medical advice (07) ==
PROVIDERS: Emergency Provider Emergency Medicine; PCP Internal Medicine
DX: Z48.00 Encounter for change or removal of nonsurgical wound dressing (principal); S61.213D Laceration without foreign body of left middle finger without damage to nail, subsequent encounter; W45.8XXD Other foreign body or object entering through skin, subsequent encounter
CPT/HCPCS: 99281

== ENCOUNTER 2023-10-03 09:13 | Emergency (ER) | payer MEDICARE, SELFPAY ==
[2023-10-03 09:22] VITALS: BP 125/61; PULSE 67; RESP 16; TEMP 36.8; O2SAT 97; BMI 33.0
--- NOTE | 2023-10-03 09:27 | PC.NURSE ---
mehrdad patel at bedside taking out sutures.
--- NOTE | 2023-10-03 09:29 | ED_ITS ---
HPI - Wound/Laceration General Chief Complaint: Skin/Abscess/Foreign Body Stated Complaint: suture removal Time Seen by Provider: 10/03/23 09:19 Source: patient Mode of arrival: ambulatory Limitations: no limitations History of Present Illness HPI narrative: Patient is a 77-year-old male presenting to the emergency department for removal of sutures to left index finger which were placed in this ED on 09/24/2023. He denies any pain, redness, swelling, purulent drainage, fevers. Denies any numbness or tingling to finger. Feels wound has been healing well. Onset (ago): day(s) Extremity Location: left: hand Place: home Related Data Home Medications Medication Instructions Recorded Confirmed polyethylene glycol 3350 17 17 g PO DAILY PRN 05/08/23 09/19/23 gram/dose oral powder (Miralax) Previous Rx's Medication Instructions Recorded furosemide 20 mg tablet 20 mg PO DAILY #90 tabs 08/27/22 naproxen 500 mg tablet 500 mg PO BID #180 tabs 03/01/23 atenolol 25 mg tablet 25 mg PO DAILY #90 tabs 04/03/23 sennosides 8.6 mg tablet (Senna 17.2 mg (2 x 8.6 mg) PO BEDTIME 05/08/23 Laxative) #60 tabs tizanidine 4 mg tablet 4 mg PO Q8H PRN muscle spasticity 07/19/23 #60 tabs amlodipine 10 mg tablet 10 mg PO DAILY #90 tabs 08/04/23 finasteride 5 mg tablet 5 mg PO DAILY 90 days #90 tabs 09/19/23 tamsulosin 0.4 mg capsule 0.4 mg PO BEDTIME 90 days #90 caps 09/19/23 acetaminophen 500 mg tablet 500 mg PO Q6H PRN pain #30 tabs 09/24/23 (Tylenol Extra Strength) cephalexin 500 mg capsule 500 mg PO BID 5 days #10 caps 09/24/23 dicyclomine 20 mg tablet 20 mg PO QID #30 tabs 09/27/23 Allergies Allergy/AdvReac Type Severity Reaction Status Date / Time No Known Allergies Allergy Verified 10/03/23 09:21 Review of Systems Review of Systems: As per HPI Yes all other systems are reviewed and are negative Constitutional: Constitutional: Reports as per HPI PMFSH Past Medical History Medical History Obesity Surgical History H/O colonoscopy History of carpal tunnel surgery History of lumbar laminectomy Family History Family History Father No problems noted. Mother No problems noted. Daughter Mental health disorder Social History Social History Housing: House Alcohol intake: current Alcohol intake frequency: holidays/special occasions only Alcohol type: beer Patient Tobacco Use Status: Current someday Tobacco user Smoked in Last 30 Days: Yes e-Cigarette/Vaping Use: Never Used Second Hand Smoke Exposure: No Substance Use Type: Marijuana Substance Use Frequency: Occasionally Advance Directives: No service: No Current occupational status: retired Cognitive needs: No Hearing needs: No Vision needs: No Physical Exam Vital Signs: Vital Signs: Last Vital Signs Temp 98.3 F 10/03/23 09:22 Pulse 67 10/03/23 09:22 Resp 16 10/03/23 09:22 BP 125/61 10/03/23 09:22 Pulse Ox 97 10/03/23 09:22 O2 Del Method Room Air 10/03/23 09:22 BMI result Body Mass Index 33.0 Vital signs have been reviewed and appear to be correct. Blood pressure normal. Heart rate normal. Respiratory rate normal. Temperature normal. Oxygen saturation normal. Const: General: cooperative, healthy appearing and no acute distress Orientation/consciousness: oriented to person, oriented to place, oriented to time and patient oriented x3 Limitations: no limitations HEENT: Head: Yes normocephalic and Yes atraumatic Ears: external ears normal General nose exam: Normal external nose present Face and sinus: Yes face symmetric Mouth: oropharynx normal and moist mucous membranes Throat: Yes uvula midline Eyes: Pupils: Equal, round and reactive pupils present Neck: Neck: Yes normal visual inspection and Yes supple Resp: Effort & Inspection: normal respiratory effort and able to speak in complete sentences Auscultation: clear to auscultation bilaterally Cardio: Rate: regular rate Rhythm: regular rhythm Heart sounds: S1 normal heart sound present and S2 normal heart sound present Skin: Other: Seven intact sutures to left index finger without surrounding erythema, swelling, warmth or drainage General skin exam: elasticity normal and turgor normal Neuro: General: oriented to person, oriented to place, oriented to time, patient oriented x3, moves all extremities, no focal motor deficits and CN's II- XI intact bilaterally Cranial nerves: Yes Equal, round and reactive pupils present Cognition (Neuro): normal cognition Extrem: General: Yes full ROM Psych: Mental Status: mental status grossly normal Affect: normal affect Thought process: Normal thought process present Medical Decision Making Medical Decision Making MDM Narrative: Patient is a 77-year-old male presenting to the emergency department for removal of sutures to left index finger which were placed in this ED on 09/24/2023. On exam patient is awake, A+Ox3, VS WNL, afebrile, normal neurological exam without focal deficits, physical exam findings as above. Sutures removed without incident with success. Band-aid applied. Advised patient to continue covering with a Band-Aid until fully healed. Return precautions discussed with patient. Patient verbalized understanding of and agreement with plan. Differential Diagnosis Differential Diagnoses: The differential diagnosis associated with the presentation includes Suture removal, cellulitis External Record Review External record reviewed: Inpatient record, Office record and Outpatient record Discharge Plan Discharge Clinical Impression: Visit for suture removal Patient Disposition: Home, Self-Care Instructions: Stitches Removal (ED) Additional Instructions: You were seen in the emergency department today for suture removal. Your wound appears to be healing well. Please keep the area surrounding the wound clean and dry and cover with a Band-Aid until fully healed. Do not submerge in water until fully healed. Please continue to assess the wound daily. Keep the area out of direct sunlight for the next 6 months to help prevent scarring. If you develop fever, redness, swelling at the site of your laceration, or thick yellow drainage please come back to the ER for a wound check. Prescriptions: No Action furosemide 20 mg tablet 20 mg PO DAILY Qty: 90 8RF naproxen 500 mg tablet 500 mg PO BID Qty: 180 8RF tizanidine 4 mg tablet 4 mg PO Q8H PRN (Reason: muscle spasticity) Qty: 60 3RF amlodipine 10 mg tablet 10 mg PO DAILY Qty: 90 0RF dicyclomine 20 mg tablet 20 mg PO QID Qty: 30 3RF cephalexin 500 mg capsule 500 mg PO BID 5 Days Qty: 10 0RF acetaminophen [Tylenol Extra Strength] 500 mg tablet 500 mg PO Q6H PRN (Reason: pain) Qty: 30 0RF atenolol 25 mg tablet 25 mg PO DAILY Qty: 90 8RF polyethylene glycol 3350 [Miralax] 17 gram/dose powder 17 g PO DAILY PRN sennosides [Senna Laxative] 8.6 mg tablet 17.2 mg PO BEDTIME Qty: 60 3RF finasteride 5 mg tablet 5 mg PO DAILY 90 Days Qty: 90 2RF tamsulosin 0.4 mg capsule 0.4 mg PO BEDTIME 90 Days Qty: 90 1RF
--- NOTE | 2023-10-03 09:40 | PC.NURSE ---
seo assistant discharged pt herself after moving sutures. no distress. tolerated procedure well
--- NOTE | 2023-10-03 09:49 | PC.NURSE ---
pt left without papers- scrap bunch maker notified
== END 2023-10-03 09:40 | disposition home or self-care (01) ==
PROVIDERS: Emergency Provider Emergency Medicine; PCP Internal Medicine
DX: Z48.02 Encounter for removal of sutures (principal)
CPT/HCPCS: 99282; 99284

== ENCOUNTER 2023-10-24 13:01 | Outpatient (AMB) | payer MEDICARE, SELFPAY ==
[2023-10-24 13:10] VITALS: BP 122/60; PULSE 50; O2SAT 97; BMI 30.6
--- NOTE | 2023-10-24 13:10 | A.OFFPC_ITS ---
Vital Signs 10/24/23 13:10 Height 6 ft 1 in Weight 232 lb BMI 30.6 BP 122/60 Blood Pressure Location Lt brachial Position Sitting Pulse 50 Pulse Source Pulse Oximeter Pulse Oximetry (%) 97 Oxygen Delivery Method Room Air Intake Visit Reasons: 3mth f/u Agricultural Extension Educator Required: No Sap Abap Programmer: Not Required per policy Accompanied by: Self / Same As Patient Allergies No Known Allergies Allergy (Verified 10/24/23 13:11) Medication List - Last Reconciled 10/24/23 by Freddy Johnston MD acetaminophen (Tylenol Extra Strength) 500 mg PO Q6H PRN amlodipine 10 mg PO DAILY atenolol 25 mg PO DAILY cephalexin 500 mg PO BID 5 days dicyclomine 20 mg PO QID finasteride 5 mg PO DAILY 90 days furosemide 20 mg PO DAILY naproxen 500 mg PO BID polyethylene glycol 3350 (Miralax) 17 grams PO DAILY PRN sennosides (Senna Laxative) 17.2 mg (2 x 8.6 mg) PO BEDTIME tamsulosin 0.4 mg PO BEDTIME 90 days tizanidine 4 mg PO Q8H PRN Tobacco use date assessed: 10/24/23 Fall risk assessment: No Falls in past year Last assessed Fall Risk: 10/24/23 Dental Screening Dental Screen Date: 10/24/23 Did you have a dental visit in the last 12 months?: Yes Did you have a dental problem in the last 6 months where you did not have access to dental care?: No Was dental information given to patient?: Patient has dentist HPI 3mth f/u HPI Details HTN on rx; doing well; compliant [facility], [facility] Medical History Obesity Surgical History H/O colonoscopy History of carpal tunnel surgery History of lumbar laminectomy Family History Father No problems noted. Mother No problems noted. Daughter Mental health disorder Social History Housing: House Alcohol intake: current Alcohol intake frequency: holidays/special occasions only Alcohol type: beer Patient Tobacco Use Status: Current someday Tobacco user e-Cigarette/Vaping Use: Never Used Second Hand Smoke Exposure: No Substance Use Type: Marijuana service: No Current occupational status: retired Cognitive needs: No Hearing needs: No Vision needs: Yes Questionnaire PHQ-9 Over the last 2 weeks, how often have you been bothered by any of the following problems? 1. Little interest or pleasure in doing things: not at all 2. Feeling down, depressed, or hopeless: not at all 3. Trouble falling or staying asleep, or sleeping too much: not at all 4. Feeling tired or having little energy: not at all 5. Poor appetite or overeating: not at all 6. Feeling bad about yourself - or that you are a failure or have let yourself or your family down: not at all 7. Trouble concentrating on things, such as reading the newspaper or watching television: not at all 8. Moving or speaking so slowly that other people could have noticed. Or the opposite - being so fidgety or restless that you have been moving around a lot more than usual: not at all 9. Thoughts that you would be better off or of hurting yourself in some way: not at all Total score: 0 Depression Screening Interpretation: Negative Depression Screening Done: Yes Source: Developed by Drs. Joe Gonzalez, Lauren Basurto, Raj Pugh and colleagues, with an educational ferdinand from [employer]. Thrive Questionnaire Date Thrive assessed: 10/24/23 I am a: Patient What is your living situation today?: I have a steady place to live Within the past 12 months, did the food you bought not last and you didn't have the money to get more?: Never true Within the past 12 months, did you worry whether your food would run out before you got money to buy more?: Never true Do you have trouble paying for medicines?: No Do you have trouble getting transportation to medical appointments?: No Do you have trouble paying your heating and electricity bill?: No Do you have trouble taking care of your child, family member or friend?: No Do you have trouble with day-to-day activities such as bathing, preparing meals, shopping, managing finances, etc.?: No Are you currently unemployed and looking for a job?: No Are you interested in more education?: No Please select the resources that you would like help with: None THRIVE Score: 0 AUDIT C Alcohol Use Questionnaire (AUDIT-C) 1. How often do you have a drink containing alcohol?: Monthly or less 2. How many drinks containing alcohol do you have on a typical day when you are drinking?: 3 or 4 3. How often do you have six or more drinks on one occasion?: Never Total Score: 2 Score Reviewed/Action Taken: Yes HANSEL-7 AMB Questionnaire HANSEL-7 Date HANSEL - 7 assessed: 10/24/23 Feeling nervous, anxious, or on edge: 0 = Not at all Not being able to stop or control worryin = Not at all Worrying too much about different things: 0 = Not at all Trouble relaxin = Not at all Being so restless that it is hard to sit still: 0 = Not at all Becoming easily annoyed or irritable: 0 = Not at all Feeling afraid as if something awful might happen: 0 = Not at all Total HANSEL-7 score (0-4 normal; 5-9 mild; 10-14 moderate; 15-21 severe): 0 Source: Developed by Drs. Joe Gonzalez, Lauren Basurto, Raj Pugh and colleagues, with an educational ferdinand from [employer]. Review of Systems Const Denies chills, Denies headache(s) and Denies weight loss ENT Denies headache(s) Card Denies chest pain, Denies syncope, Denies irregular heart rhythm and Denies dyspnea Resp Denies chest congestion, Denies cough and Denies dyspnea GI Denies abdominal pain, Denies change in stool character, Denies nausea and Denies vomiting Musc Denies deformity and Denies joint swelling Neuro Denies syncope and Denies headache(s) Physical exam (Primary Care) Vital Signs: Last Vital Signs Pulse 50 10/24/23 13:10 BP 122/60 10/24/23 13:10 Pulse Ox 97 10/24/23 13:10 Oxygen Delivery Method Room Air 10/24/23 13:10 BMI result Body Mass Index 30.6 Tobacco/Smoking Status: Tobacco use Status Tobacco use date assessed 10/24/23 10/24/23 13:13 Patient Tobacco Use Status Current someday Tobacco 10/24/23 13:13 e-Cigarette/Vaping Use Never Used 10/24/23 13:13 PHQ-9: PHQ-9 Score PHQ-9: Total score 0 10/24/23 13:13 Depression Screening Interpretation: Negative Thrive Assessment: Date of Thrive Assessment Date Thrive assessed 10/24/23 10/24/23 13:13 Const General: cooperative, comfortable, no acute distress and alert Neck Neck: Yes no lymphadenopathy Thyroid: Thyroid normal Resp Effort & Inspection: normal respiratory effort Auscultation: clear to auscultation bilaterally Percussion: percussion normal Cardio Jugular venous distension: no JVD Palpation: normal PMI Rate: regular rate Rhythm: regular rhythm Heart sounds: S1 normal heart sound present and S2 normal heart sound present GI Inspection: Yes normal to inspection Palpation (GI): No hepatosplenomegaly present Skin General skin exam: no rashes or lesions noted Extrem General: Yes no clubbing, cyanosis or edema Assessment and Plan Assessment & Plan (1) Hypertension: Code(s): I10 - Essential (primary) hypertension Plan: stable; same rx Coding Level of Care Code Est Pt Level 3 (27292) Diagnoses Hypertension I10
== END 2023-10-24 13:28 | disposition home or self-care (01) ==
PROVIDERS: PCP Internal Medicine; Visit Provider Internal Medicine
DX: I10 Essential (primary) hypertension (principal)
CPT/HCPCS: 99213

== ENCOUNTER 2023-12-18 09:26 | Outpatient (AMB) | payer MEDICARE, SELFPAY ==
[2023-12-18 09:28] VITALS: BP 90/60; PULSE 51; O2SAT 98; BMI 29.7
--- NOTE | 2023-12-18 09:28 | MHC.PC.OV ---
Vital Signs 12/18/23 09:28 Height 6 ft 1 in Weight 225 lb 0.8 oz BMI 29.7 BP 90/60 Blood Pressure Location Lt brachial Position Sitting Pulse 51 Pulse Source Pulse Oximeter Pulse Oximetry (%) 98 Oxygen Delivery Method Room Air Intake Visit Reasons: Fall/Pain in Left Shoulder Intake Note: pt states fall last night and left shoulder injury/pain Allergies No Known Allergies Allergy (Verified 10/24/23 13:11) Medication List - Last Reconciled 12/18/23 by Freddy Johnston MD acetaminophen (Tylenol Extra Strength) 500 mg PO Q6H PRN amlodipine 10 mg PO DAILY aspirin 81 mg PO DAILY atenolol 25 mg PO DAILY dicyclomine 20 mg PO QID finasteride 5 mg PO DAILY 90 days furosemide 20 mg PO DAILY naproxen 500 mg PO BID polyethylene glycol 3350 (Miralax) 17 grams PO DAILY PRN sennosides (Senna Laxative) 17.2 mg (2 x 8.6 mg) PO BEDTIME tamsulosin 0.4 mg PO BEDTIME 90 days tizanidine 4 mg PO Q8H PRN Tobacco use date assessed: 10/24/23 Fall risk assessment: 1 Fall in past year Last assessed Fall Risk: 12/18/23 Dental Screening Dental Screen Date: 10/24/23 HPI Fall/Pain in Left Shoulder HPI Details fell yesterday and injured left shoulder PFSH Medical History Obesity Surgical History H/O colonoscopy History of carpal tunnel surgery History of lumbar laminectomy Family History Father No problems noted. Mother No problems noted. Daughter Mental health disorder Social History Housing: House Alcohol intake: current Alcohol intake frequency: holidays/special occasions only Alcohol type: beer Patient Tobacco Use Status: Current someday Tobacco user e-Cigarette/Vaping Use: Never Used Second Hand Smoke Exposure: No Substance Use Type: Marijuana service: No Current occupational status: retired Cognitive needs: No Hearing needs: No Vision needs: Yes Questionnaire Thrive Questionnaire Date Thrive assessed: 10/24/23 AUDIT C Alcohol Use Questionnaire (AUDIT-C) 1. How often do you have a drink containing alcohol?: Monthly or less 2. How many drinks containing alcohol do you have on a typical day when you are drinking?: 3 or 4 3. How often do you have six or more drinks on one occasion?: Never Total Score: 2 Score Reviewed/Action Taken: Yes HANSEL-7 AMB Questionnaire HANSEL-7 Date HANSEL - 7 assessed: 10/24/23 Source: Developed by Drs. Joe Gonzalez, Lauren Basurto, Raj Pugh and colleagues, with an educational ferdinand from [employer]. Review of Systems Const Denies chills, Denies headache(s) and Denies weight loss ENT Denies headache(s) Card Denies chest pain, Denies syncope, Denies irregular heart rhythm and Denies dyspnea Resp Denies chest congestion, Denies cough and Denies dyspnea GI Denies abdominal pain, Denies change in stool character, Denies nausea and Denies vomiting Musc Denies deformity and Denies joint swelling Neuro Denies syncope and Denies headache(s) Physical exam (Primary Care) Vital Signs: Last Vital Signs Pulse 51 12/18/23 09:28 BP 90/60 12/18/23 09:28 Pulse Ox 98 12/18/23 09:28 Oxygen Delivery Method Room Air 12/18/23 09:28 BMI result Body Mass Index 29.7 Tobacco/Smoking Status: Tobacco use Status Tobacco use date assessed 10/24/23 12/18/23 09:28 Patient Tobacco Use Status Current someday Tobacco 12/18/23 09:28 e-Cigarette/Vaping Use Never Used 12/18/23 09:28 Thrive Assessment: Date of Thrive Assessment Date Thrive assessed 10/24/23 12/18/23 09:28 Const General: cooperative, comfortable, no acute distress and alert Neck Neck: Yes no lymphadenopathy Thyroid: Thyroid normal Resp Effort & Inspection: normal respiratory effort Auscultation: clear to auscultation bilaterally Percussion: percussion normal Cardio Jugular venous distension: no JVD Palpation: normal PMI Rate: regular rate Rhythm: regular rhythm Heart sounds: S1 normal heart sound present and S2 normal heart sound present GI Inspection: Yes normal to inspection Palpation (GI): No hepatosplenomegaly present Skin General skin exam: no rashes or lesions noted Extrem General: Yes no clubbing, cyanosis or edema Assessment and Plan Assessment & Plan (1) Shoulder pain: Code(s): M25.519 - Pain in unspecified shoulder Plan: xr obtained and read as possible rotator cuff tear; ref to ortho Orders: Orders XR shoulder LT min 2V Today M25.519 - Pain in unspecified shoulder Coding Level of Care Code Est Pt Level 3 (76620) Diagnoses Shoulder pain M25.519
== END 2023-12-18 09:58 | disposition home or self-care (01) ==
PROVIDERS: PCP Internal Medicine; Visit Provider Internal Medicine
DX: M25.519 Pain in unspecified shoulder (principal)
CPT/HCPCS: 99213

== ENCOUNTER 2023-12-18 10:04 | Outpatient (REF) | payer MEDICARE, SELFPAY ==
--- NOTE | ~2023-12-18 | XR_ITS ---
EXAMINATION: XR SHOULDER, LEFT CLINICAL INFORMATION: Pain in left shoulder COMPARISON: 04/04/2020 TECHNIQUE: AP external rotation, Grashey, scapular Y, and axillary views of the left shoulder. FINDINGS: There is mild cephalad migration of left humeral head most likely due to rotator cuff tear. There is flattening of greater tuberosity possibly due to Hill-Sachs deformity fracture. There are mild degenerative changes of acromioclavicular joint. Soft tissues unremarkable without evidence of calcifications. XR/XR shoulder LT min 2V IMPRESSION: Changes of rotator cuff tear and Hill-Sachs deformity of left humeral head and mild degenerative changes of acromioclavicular joint.
== END 2023-12-18 10:05 | disposition home or self-care (01) ==
LOC: HO.XRAY 10:04
PROVIDERS: PCP Internal Medicine; Visit Provider Internal Medicine
DX: M25.512 Pain in left shoulder (principal)
CPT/HCPCS: 73030

== ENCOUNTER 2024-01-28 14:25 | Outpatient (AMB) | payer MEDICARE, SELFPAY ==
[2024-01-28 14:36] VITALS: BP 120/64; PULSE 53; O2SAT 98; BMI 28.8
--- NOTE | 2024-01-28 14:36 | A.OFFPC_ITS ---
Vital Signs 01/28/24 14:36 Height 6 ft 1 in Weight 218 lb BMI 28.8 BP 120/64 Blood Pressure Location Lt brachial Position Sitting Pulse 53 Pulse Source Pulse Oximeter Pulse Oximetry (%) 98 Oxygen Delivery Method Room Air Intake Visit Reasons: follow up Certified Massage Therapist Required: No Brain Picker: Not Required per policy Accompanied by: Self / Same As Patient Allergies No Known Allergies Allergy (Verified 01/28/24 14:37) Medication List - Last Reconciled 01/29/24 by Freddy Johnston MD acetaminophen (Tylenol Extra Strength) 500 mg PO Q6H PRN amlodipine 10 mg PO DAILY aspirin 81 mg PO DAILY atenolol 25 mg PO DAILY dicyclomine 20 mg PO QID finasteride 5 mg PO DAILY 90 days furosemide 20 mg PO DAILY naproxen 500 mg PO BID polyethylene glycol 3350 (Miralax) 17 grams PO DAILY PRN sennosides (Senna Laxative) 17.2 mg (2 x 8.6 mg) PO BEDTIME tamsulosin 0.4 mg PO BEDTIME 90 days tizanidine 4 mg PO Q8H PRN tramadol 50 mg PO Q8H PRN Tobacco use date assessed: 10/24/23 Fall risk assessment: 1 Fall in past year Last assessed Fall Risk: 01/28/24 Dental Screening Dental Screen Date: 10/24/23 HPI follow up HPI Details HTN on Rx; compliant PFSH Medical History Obesity Surgical History H/O colonoscopy History of carpal tunnel surgery History of lumbar laminectomy Family History Father No problems noted. Mother No problems noted. Daughter Mental health disorder Social History Housing: House Alcohol intake: current Alcohol intake frequency: holidays/special occasions only Alcohol type: beer Patient Tobacco Use Status: Current someday Tobacco user e-Cigarette/Vaping Use: Never Used Second Hand Smoke Exposure: No Substance Use Type: Marijuana service: No Current occupational status: retired Cognitive needs: No Hearing needs: No Vision needs: Yes (glasses) Questionnaire Thrive Questionnaire Date Thrive assessed: 10/24/23 HANSEL-7 AMB Questionnaire HANSEL-7 Date HANSEL - 7 assessed: 10/24/23 Source: Developed by Drs. Joe Gonzalez, Lauren Basurto, Raj Pugh and colleagues, with an educational ferdinand from [employer]. Review of Systems Const Denies chills, Denies headache(s) and Denies weight loss ENT Denies headache(s) Card Denies chest pain, Denies syncope, Denies irregular heart rhythm and Denies dyspnea Resp Denies chest congestion, Denies cough and Denies dyspnea GI Denies abdominal pain, Denies change in stool character, Denies nausea and Denies vomiting Musc Denies deformity and Denies joint swelling Neuro Denies syncope and Denies headache(s) Physical exam (Primary Care) Vital Signs: Last Vital Signs Pulse 53 01/28/24 14:36 BP 120/64 01/28/24 14:36 Pulse Ox 98 01/28/24 14:36 Oxygen Delivery Method Room Air 01/28/24 14:36 BMI result Body Mass Index 28.8 Tobacco/Smoking Status: Tobacco use Status Tobacco use date assessed 10/24/23 01/28/24 14:42 Patient Tobacco Use Status Current someday Tobacco 01/28/24 14:42 e-Cigarette/Vaping Use Never Used 01/28/24 14:42 Thrive Assessment: Date of Thrive Assessment Date Thrive assessed 10/24/23 01/28/24 14:42 Const General: cooperative, comfortable, no acute distress and alert Neck Neck: Yes no lymphadenopathy Thyroid: Thyroid normal Resp Effort & Inspection: normal respiratory effort Auscultation: clear to auscultation bilaterally Percussion: percussion normal Cardio Jugular venous distension: no JVD Palpation: normal PMI Rate: regular rate Rhythm: regular rhythm Heart sounds: S1 normal heart sound present and S2 normal heart sound present GI Inspection: Yes normal to inspection Palpation (GI): No hepatosplenomegaly present Skin General skin exam: no rashes or lesions noted Extrem General: Yes no clubbing, cyanosis or edema Assessment and Plan Assessment & Plan (1) Hypertension: Code(s): I10 - Essential (primary) hypertension Plan: stable; same rx Medications: New tramadol 50 mg PO Q8H PRN 30 tabs 0RF pain Coding Level of Care Code Est Pt Level 3 (52389) Diagnoses Hypertension I10
== END 2024-01-28 14:54 | disposition home or self-care (01) ==
PROVIDERS: PCP Internal Medicine; Visit Provider Internal Medicine
DX: I10 Essential (primary) hypertension (principal)
CPT/HCPCS: 99213

== ENCOUNTER 2024-03-02 08:24 | Outpatient (REF) | payer MEDICARE, SELFPAY ==
[2024-03-02 10:23] LABS: PSA,Total (Free>4and<10) 6.84 ng/mL (0.00-4.00)
[2024-03-03 11:08] LABS: Free Prostate Spec Ag 0.4 ng/mL; Percent Free Prostate Spec Ag 6 % (calc) (>25); Prostate Specific Ag Total 6.2 ng/mL (< OR = 4.0)
== END 2024-03-02 08:25 | disposition home or self-care (01) ==
LOC: HO.LAB 08:24
PROVIDERS: PCP Internal Medicine; Visit Provider Urology
DX: R97.20 Elevated prostate specific antigen [PSA] (principal); Z12.5 Encounter for screening for malignant neoplasm of prostate
CPT/HCPCS: 36415; 84153; 84154

== ENCOUNTER 2024-03-04 13:40 | Outpatient (AMB) | payer MEDICARE, SELFPAY ==
[2024-03-04 13:42] VITALS: BP 102/56; PULSE 53; O2SAT 98; BMI 27.8
--- NOTE | 2024-03-04 13:42 | MHC.PC.OV ---
Vital Signs 03/04/24 13:42 Height 6 ft 1 in Weight 211 lb BMI 27.8 BP 102/56 L Blood Pressure Location Lt brachial Position Sitting Pulse 53 Pulse Source Pulse Oximeter Pulse Oximetry (%) 98 Oxygen Delivery Method Room Air Intake Visit Reasons: carpal tunnel pain in hands Measurement Supervisor Required: No Bag Bundler: Not Required per policy Accompanied by: Self / Same As Patient Allergies No Known Allergies Allergy (Verified 03/04/24 13:42) Medication List - Last Reconciled 03/04/24 by Freddy Johnston MD acetaminophen (Tylenol Extra Strength) 500 mg PO Q6H PRN amlodipine 10 mg PO DAILY aspirin 81 mg PO DAILY atenolol 25 mg PO DAILY dicyclomine 20 mg PO QID finasteride 5 mg PO DAILY 90 days furosemide 20 mg PO DAILY naproxen 500 mg PO BID polyethylene glycol 3350 (Miralax) 17 grams PO DAILY PRN tizanidine 4 mg PO Q8H PRN tramadol 50 mg PO Q8H PRN Tobacco use date assessed: 10/24/23 Fall risk assessment: 1 Fall in past year Last assessed Fall Risk: 03/04/24 Dental Screening Dental Screen Date: 10/24/23 HPI carpal tunnel pain in hands HPI Details bilat CTS; had surgery in past but symptoms recurring PFSH Medical History Obesity Surgical History H/O colonoscopy History of carpal tunnel surgery History of lumbar laminectomy Family History Father No problems noted. Mother No problems noted. Daughter Mental health disorder Social History Housing: House Alcohol intake: current Alcohol intake frequency: holidays/special occasions only Alcohol type: beer Patient Tobacco Use Status: Current someday Tobacco user e-Cigarette/Vaping Use: Never Used Second Hand Smoke Exposure: No Substance Use Type: Marijuana service: No Current occupational status: retired Cognitive needs: No Hearing needs: No Vision needs: Yes (glasses) Questionnaire Thrive Questionnaire Date Thrive assessed: 10/24/23 HANSEL-7 AMB Questionnaire HANSEL-7 Date HANSEL - 7 assessed: 10/24/23 Source: Developed by Drs. Joe Gonzalez, Lauren Basurto, Raj Pugh and colleagues, with an educational ferdinand from [employer]. Review of Systems Const Denies chills, Denies headache(s) and Denies weight loss ENT Denies headache(s) Card Denies chest pain, Denies syncope, Denies irregular heart rhythm and Denies dyspnea Resp Denies chest congestion, Denies cough and Denies dyspnea GI Denies abdominal pain, Denies change in stool character, Denies nausea and Denies vomiting Musc Denies deformity and Denies joint swelling Neuro Denies syncope and Denies headache(s) Physical exam (Primary Care) Vital Signs: Last Vital Signs Pulse 53 03/04/24 13:42 BP 102/56 L 03/04/24 13:42 Pulse Ox 98 03/04/24 13:42 Oxygen Delivery Method Room Air 03/04/24 13:42 BMI result Body Mass Index 27.8 Tobacco/Smoking Status: Tobacco use Status Tobacco use date assessed 10/24/23 03/04/24 13:43 Patient Tobacco Use Status Current someday Tobacco 03/04/24 13:43 e-Cigarette/Vaping Use Never Used 03/04/24 13:43 Thrive Assessment: Date of Thrive Assessment Date Thrive assessed 10/24/23 03/04/24 13:43 Const General: cooperative, comfortable, no acute distress and alert Neck Neck: Yes no lymphadenopathy Thyroid: Thyroid normal Resp Effort & Inspection: normal respiratory effort Auscultation: clear to auscultation bilaterally Percussion: percussion normal Cardio Jugular venous distension: no JVD Palpation: normal PMI Rate: regular rate Rhythm: regular rhythm Heart sounds: S1 normal heart sound present and S2 normal heart sound present GI Inspection: Yes normal to inspection Palpation (GI): No hepatosplenomegaly present Skin General skin exam: no rashes or lesions noted Extrem General: Yes no clubbing, cyanosis or edema Assessment and Plan Assessment & Plan (1) Carpal tunnel syndrome: Code(s): G56.00 - Carpal tunnel syndrome, unspecified upper limb Plan: NCS and referral Orders: Orders NE nerve conduction velocity Today G56.00 - Carpal tunnel syndrome, unspecified upper limb Referrals Orthopedics Referral G56.00 - Carpal tunnel syndrome, unspecified upper limb Coding Level of Care Code Est Pt Level 3 (81637) Diagnoses Carpal tunnel syndrome G56.00
== END 2024-03-04 14:04 | disposition home or self-care (01) ==
PROVIDERS: PCP Internal Medicine; Visit Provider Internal Medicine
DX: G56.00 Carpal tunnel syndrome, unspecified upper limb (principal)
CPT/HCPCS: 99213

== ENCOUNTER 2024-03-26 11:53 | Outpatient (REF) | payer MEDICARE, SELFPAY ==
--- NOTE | 2024-03-26 11:56 | EMG_ITS ---
Chief complaint: Bilateral Carpal Tunnel Syndrome surgeries in 2020. Symptoms return 5 months after. Hand numbness and pain bilateral. Denies neck pain. EMG done by Dr. Lyman in 2019 reviewed, showed right moderate and left mild Carpal Tunnel Syndrome. Reason for referral: Evaluate for Carpal Tunnel Syndrome Referred by: Dr. Johnston Procedure done: Bilateral upper extremities NCS/EMG Precautions and/or limitations: Poor tolerance of needle. The limb temperature was monitored continuously and remained between 32-36 degrees C during the performance of the NCS. Ulnar motor NCS was performed with moderate elbow flexion between 70-90 degrees, with across-elbow distance of 10 cm. Nerve Conduction Studies Anti Sensory Summary Table ?Stim Site NR Onset (ms) Norm Onset (ms) Peak (ms) Norm Peak (ms) O-P Amp (?V) Norm O-P Amp Site1 Site2 Delta-0 (ms) Dist (cm) Medhat (m/s) Norm Medhat (m/s) Left Median Anti Sensory (2nd Digit) Wrist ? 2.7 3.7 <3.6 5.9 >10 Wrist 2nd Digit 2.7 14.0 52 Right Median Anti Sensory (2nd Digit) Wrist ? 3.3 4.0 <3.6 4.1 >10 Wrist 2nd Digit 3.3 14.0 42 Right Radial Anti Sensory (Thumb) Forearm ? 1.2 1.8 <3.1 16.8 Forearm Thumb 1.2 0.0 Left Ulnar Anti Sensory (5th Digit) Wrist ? 2.8 3.5 5.3 Right Ulnar Anti Sensory (5th Digit) Wrist ? 3.2 4.0 <3.7 3.7 >15.0 Wrist 5th Digit 3.2 14.0 44 Motor Summary Table ?Stim Site NR Onset (ms) Norm Onset (ms) O-P Amp (mV) Norm O-P Amp iAmp (mV) Amp (1st) (%) Site1 Site2 Delta-0 (ms) Dist (cm) Medhat (m/s) Norm Medhat (m/s) Left Median Motor (Abd Poll Brev) Wrist ? 3.8 <3.9 8.5 >4.5 10.3 100.0 Elbow Wrist 4.6 24.0 52 >45 Elbow ? 8.4 8.3 10.1 97.6 Right Median Motor (Abd Poll Brev) Wrist ? 4.8 <3.9 3.8 >4.5 4.5 100.0 Elbow Wrist 4.9 26.0 53 >45 Elbow ? 9.7 3.0 3.6 78.9 Left Ulnar Motor (Abd Dig Minimi) Wrist ? 3.2 <3.0 6.6 >5 7.5 100.0 B Elbow Wrist 4.4 20.0 45 >45 B Elbow ? 7.6 5.7 6.6 86.4 A Elbow B Elbow 1.5 10.0 67 >45 A Elbow ? 9.1 5.4 6.3 81.8 Right Ulnar Motor (Abd Dig Minimi) Wrist ? 3.2 <3.0 7.3 >5 8.5 100.0 B Elbow Wrist 4.5 23.0 51 >45 B Elbow ? 7.7 6.1 7.3 83.6 A Elbow B Elbow 1.4 10.0 71 >45 A Elbow ? 9.1 5.4 6.5 74.0 EMG ?Side Muscle Nerve Root Ins Act Fibs Psw Amp Dur Poly Recrt Int Pat Comment Right 1stDorInt Ulnar C8-T1 Nml Nml Nml Nml Nml 0 Nml Complete Right FlexCarRad Median C6-7 Nml Nml Nml Nml Nml 0 Nml Complete Right Biceps Musculocut C5-6 Nml Nml Nml Nml Nml 0 Nml Complete Right Triceps Radial C6-7-8 Nml Nml Nml Nml Nml 0 Nml Complete Right Deltoid Axillary C5-6 Nml Nml Nml Nml Nml 0 Nml Complete Right Abd Poll Brev Median C8-T1 Nml Nml Nml Nml Nml 0 Nml Complete FINDINGS: Right median motor nerve showed prolonged distal latency, small amplitude and normal conduction velocity. Bilateral median sensory nerves showed prolonged peak latency and small amplitude. Right ulnar sensory nerve showed small amplitude and prolonged peak latency. Left ulnar sensory nerve showed prolonged peak latency, low amplitude but bigger compared to right side. No slowing of conduction velocity or conduction block seen in ulnar motor nerves. All other nerves tested were within normal. Concentric needle EMG was performed in selected muscles of the right upper extremity. Study did not reveal signs of electric abnormalities as shown in the table above. Only right side done, deferred left side due to poor tolerance. IMPRESSION: 1. This is an abnormal study. 2. There is electrodiagnostic evidence for right moderate-severe and mild median neuropathy at the wrist, consistent with Carpal Tunnel Syndrome. 3. Suspect patient had chronic right ulnar neuropathy. But no slowing of conduction velocity or conduction block seen. 4. There is no electrodiagnostic evidence for brachial plexopathy or cervical radiculopathy. Thank you for your kind referral. Lorin Evans MD, ELISABETH Board Certified, [place] Board of Physical Medicine and Rehabilitation (ABPMR) Board Certified, [place] Board of Electrodiagnostic Medicine (ABEM) [place] [id number] [facility]
== END 2024-03-26 11:54 | disposition home or self-care (01) ==
LOC: HO.NEURO 11:53
PROVIDERS: PCP Internal Medicine; Visit Provider Internal Medicine
DX: G56.03 Carpal tunnel syndrome, bilateral upper limbs (principal)
CPT/HCPCS: 95886; 95911

== ENCOUNTER → 2024-03-26 11:56 | Outpatient (BNV) | payer MEDICARE, SELFPAY | PROVIDERS: PCP Internal Medicine; Visit Provider Physical Medicine & Rehabilitation | DX: G56.01 Carpal tunnel syndrome, right upper limb (principal) | CPT/HCPCS: 95886; 95911 ==

== ENCOUNTER 2024-03-27 13:53 | Outpatient (AMB) | payer MEDICARE, SELFPAY ==
[2024-03-27 13:55] VITALS: BP 130/60; PULSE 66; O2SAT 97; BMI 27.3
--- NOTE | 2024-03-27 13:55 | A.OFFPC_ITS ---
Vital Signs 03/27/24 13:55 Height 6 ft 1 in Weight 207 lb BMI 27.3 BP 130/60 Blood Pressure Location Lt brachial Position Sitting Pulse 66 Pulse Source Pulse Oximeter Pulse Oximetry (%) 97 Oxygen Delivery Method Room Air Intake Visit Reasons: pain from hip down to leg Cryptologist Required: No Accompanied by: Self / Same As Patient Allergies No Known Allergies Allergy (Verified 03/27/24 14:02) Medication List - Last Reconciled 03/30/24 by Freddy Johnston MD acetaminophen (Tylenol Extra Strength) 500 mg PO Q6H PRN amlodipine 10 mg PO DAILY aspirin 81 mg PO DAILY atenolol 25 mg PO DAILY dicyclomine 20 mg PO QID finasteride 5 mg PO DAILY 90 days furosemide 20 mg PO DAILY naproxen 500 mg PO BID polyethylene glycol 3350 (Miralax) 17 grams PO DAILY PRN tizanidine 4 mg PO Q8H PRN tramadol 50 mg PO Q8H PRN Tobacco use date assessed: 10/24/23 Fall risk assessment: No Falls in past year Last assessed Fall Risk: 03/27/24 Dental Screening Dental Screen Date: 10/24/23 HPI pain from hip down to leg HPI0 Details HTN on rx; doing well and compliant [facility] Medical History Obesity Surgical History H/O colonoscopy History of carpal tunnel surgery History of lumbar laminectomy Family History Father No problems noted. Mother No problems noted. Daughter Mental health disorder Social History Housing: House Alcohol intake: current Alcohol intake frequency: holidays/special occasions only Alcohol type: beer Patient Tobacco Use Status: Current someday Tobacco user e-Cigarette/Vaping Use: Never Used Second Hand Smoke Exposure: No Substance Use Type: Marijuana service: No Current occupational status: retired Cognitive needs: No Hearing needs: No Vision needs: Yes (glasses) Questionnaire Thrive Questionnaire Date Thrive assessed: 10/24/23 HANSEL-7 AMB Questionnaire HANSEL-7 Date HANSEL - 7 assessed: 10/24/23 Source: Developed by Drs. Joe Gonzalez, Lauren Basurto, Raj Pugh and colleagues, with an educational ferdinand from [employer]. Review of Systems Const Denies chills, Denies headache(s) and Denies weight loss ENT Denies headache(s) Card Denies chest pain, Denies syncope, Denies irregular heart rhythm and Denies dyspnea Resp Denies chest congestion, Denies cough and Denies dyspnea GI Denies abdominal pain, Denies change in stool character, Denies nausea and Denies vomiting Musc Denies deformity and Denies joint swelling Neuro Denies syncope and Denies headache(s) Physical exam (Primary Care) Vital Signs: Last Vital Signs Pulse 66 03/27/24 13:55 BP 130/60 03/27/24 13:55 Pulse Ox 97 03/27/24 13:55 Oxygen Delivery Method Room Air 03/27/24 13:55 BMI result Body Mass Index 27.3 Tobacco/Smoking Status: Tobacco use Status Tobacco use date assessed 10/24/23 03/27/24 13:55 Patient Tobacco Use Status Current someday Tobacco 03/27/24 13:55 e-Cigarette/Vaping Use Never Used 03/27/24 13:55 Thrive Assessment: Date of Thrive Assessment Date Thrive assessed 10/24/23 03/27/24 13:55 Const General: cooperative, comfortable, no acute distress and alert Neck Neck: Yes no lymphadenopathy Thyroid: Thyroid normal Resp Effort & Inspection: normal respiratory effort Auscultation: clear to auscultation bilaterally Percussion: percussion normal Cardio Jugular venous distension: no JVD Palpation: normal PMI Rate: regular rate Rhythm: regular rhythm Heart sounds: S1 normal heart sound present and S2 normal heart sound present GI Inspection: Yes normal to inspection Palpation (GI): No hepatosplenomegaly present Skin General skin exam: no rashes or lesions noted Extrem General: Yes no clubbing, cyanosis or edema Assessment and Plan Assessment & Plan (1) Hypertension: Code(s): I10 - Essential (primary) hypertension Plan: stable ;same rx Medications: Refilled tramadol 50 mg PO Q8H PRN 30 tabs 0RF pain Coding Level of Care Code Tele Est Pt Level 3 (01558) Diagnoses Hypertension I10
== END 2024-03-27 14:16 | disposition home or self-care (01) ==
PROVIDERS: PCP Internal Medicine; Visit Provider Internal Medicine
DX: I10 Essential (primary) hypertension (principal)
CPT/HCPCS: 99213

== ENCOUNTER 2024-05-05 10:37 | Outpatient (AMB) | payer MEDICARE, SELFPAY ==
--- NOTE | 2024-05-05 10:44 | MHC.OFFVIS ---
Intake Visit Reasons: 6M Follow Up-PSA(set) Intake Note: Patient is Present for 6m Follow Up PSA Urology Medication: Finasteride Antibiotic Allergies: None Blood Thinners: NONE Worm Picker Required: No Allergies No Known Allergies Allergy (Verified 07/09/24 20:08) HPI Comments Details: Rene is a pleasant male. He is a patient of Dr. Moody. He is seen for the following urologic conditions - elevated PSA - chronic prostatitis - erectile dysfunction - LUTS Follow-up from alpha-jackie trial PVR 30 cc Did notice some benefit but has variable nocturia Continue tamsulosin q.h.s. Continue finasteride Six month follow-up PSA PSA slow climb with low percentage High probability prostate cancer PCPT - high grade prostate cancer 50%, low-grade prostate cancer 40% Previously discussed prostate biopsy and this is being recommended. He understands the risks and benefits with potential delay in diagnosis. Lower urinary tract symptoms Progressive weakness of stream Waking 2-3 times per night Current medications include finasteride tamsulosin Elevated PSA Recommend biopsy previously PSA 01/17 2.2, 07/30 9.0, 12/29 10.8, 02/28 10.0, 06/30 6.2, 12/30 5.9 8%, 07/01 6.9 6%, 03/02 6.2 6% Current therapy finasteride Understands the risks and benefits with potential delay in diagnosis Erectile dysfunction No prior medications Unable to maintain Trial Viagra [facility] Medical History (Updated 07/12/24 @ 00:00 by Rasheed Boss) Hypertension Vertigo Obesity Surgical History H/O colonoscopy History of carpal tunnel surgery History of lumbar laminectomy Family History Father No problems noted. Mother No problems noted. Daughter Mental health disorder Social History Housing: House Alcohol intake: current Alcohol intake frequency: holidays/special occasions only Alcohol type: beer Patient Tobacco Use Status: Current someday Tobacco user Smoked in Last 30 Days: Yes e-Cigarette/Vaping Use: Never Used Second Hand Smoke Exposure: No Use of substances other than those prescribed or required for medical reasons: Yes Substance Use Type: Marijuana Advance Directives: No Advance Directives Information Provided: Yes Do you have a plan to hurt others: No Plan service: No Current occupational status: retired Cognitive needs: No Hearing needs: No Vision needs: Yes (glasses) Review of Systems Const Denies chills and Denies fever(s) Card Reports no additional complaints and Denies syncope Resp Denies cough GI Denies abdominal pain and Denies heartburn Reports as per HPI and Denies change in libido Neuro Denies syncope Psych Denies change in libido Endo Denies change in libido Physical Exam Const General: cooperative, healthy appearing, comfortable and no acute distress Orientation/consciousness: patient oriented x3 HEENT Face and sinus: Yes normal facial exam Mouth: moist mucous membranes Neck Neck: Yes normal visual inspection, Yes full ROM and Yes trachea midline Chest Chest palpation & inspection: normal inspection of the chest Resp Effort & Inspection: normal respiratory effort, able to speak in complete sentences and no respiratory distress GI Inspection: Yes normal to inspection Back/Spine/Pelvis Cervical Spine: normal cervical lordosis Thoracic/Lumbar Spine: thoracic and lumbar spine normal to inspection Skin General skin exam: no rashes or lesions noted Neuro General: patient oriented x3, gait normal, tone normal and moves all extremities Extrem General: Yes normal to inspection and Yes capillary refill normal Results AMB Urinalysis, Automated UA Leukoctes 0 Susie/uL Last Edit by NOEL Anaya on 05/05/24 10:55 UA Nitrite Negative Last Edit by NOEL Anaya on 05/05/24 10:55 UA Urobilinogen 0.2 mg/dL Last Edit by NOEL Anaya on 05/05/24 10:55 UA Protein 0 mg/dL Last Edit by NOEL Anaya on 05/05/24 10:55 UA pH 5.5 Last Edit by NOEL Anaya on 05/05/24 10:55 UA Blood 0 Fan/uL Last Edit by NOEL Anaya on 05/05/24 10:55 UA Specific [place] 1.020 Last Edit by NOEL Anaya on 05/05/24 10:55 UA Ketone Negative Last Edit by NOEL Anaya on 05/05/24 10:55 UA Bilirubin 0 mg/dL Last Edit by NOEL Anaya on 05/05/24 10:55 UA Glucose 0 mg/dL Last Edit by NOEL Anaya on 05/05/24 10:55 Results Reviewed Results Reviewed: Laboratory Last Values Urine pH (Auto) 5.5 05/05/24 10:55 Specific [place] (Auto) 1.020 05/05/24 10:55 Urine Protein (Auto) 0 mg/dL 05/05/24 10:55 Glucose (UA)(Auto) 0 mg/dL 05/05/24 10:55 Urine Ketones (Auto) Negative 05/05/24 10:55 Urine Blood (Auto) 0 Fan/uL 05/05/24 10:55 Urine Nitrite (Auto) Negative 05/05/24 10:55 Urine Bilirubin (Auto) 0 mg/dL 05/05/24 10:55 Urine Urobilinogen (Auto) 0.2 mg/dL 05/05/24 10:55 Leukocyte Esterase (Auto) 0 Susie/uL 05/05/24 10:55 Assessment & Plan Assessment & Plan (1) Elevated PSA: Code(s): R97.20 - Elevated prostate specific antigen [PSA] Category: Medical (2) Chronic prostatitis: Code(s): N41.1 - Chronic prostatitis Category: Medical (3) Nocturia more than twice per night: Code(s): R35.1 - Nocturia Category: Medical (4) Bladder outlet obstruction: Code(s): N32.0 - Bladder-neck obstruction Category: Medical Plan Six-month follow-up PSA tele Orders: Orders AMB Urinalysis Automated 05/05/24 Z13.9 - Encounter for screening, unspecified Patient Instructions: Imaging studies, laboratory and physical exam results were discussed and reviewed in detail. No major barriers to patient understanding were identified. An opportunity to ask questions regarding the treatment plan was provided. All questions were answered. The patient expressed understanding and agreement with the above treatment plan. The patient is aware they should contact our office by phone for worsening of their current condition or the appearance of new urologic symptoms. Compliance is encouraged with any medications and followup testing that is ordered. It is a privilege to participate in the urologic care of your patient. If you have any questions or concerns regarding treatment for the above conditions, or other urologic issues, please do not hesitate to contact me. The office telephone contact is [phone]. This note is constructed using voice recognition software. While every effort has been made to ensure accuracy sweat band sewer errors may have been included. Yours sincerely, Dr Aries Mina MD, [facility] - Urology Providers of Expert, Compassionate Care for the Genitourinary System Coding Level of Care Code Est Pt Level 3 (47881) Diagnoses Elevated PSA R97.20 Chronic prostatitis N41.1 Nocturia more than twice per night R35.1 Bladder outlet obstruction N32.0
== END 2024-05-05 11:37 | disposition home or self-care (01) ==
LOC: HO.HUSH 10:37
PROVIDERS: PCP Internal Medicine; Visit Provider Urology
DX: R97.20 Elevated prostate specific antigen [PSA] (principal); N41.1 Chronic prostatitis; R35.1 Nocturia; N32.0 Bladder-neck obstruction
CPT/HCPCS: 99213

== ENCOUNTER → 2024-05-05 10:37 | Outpatient (BNVA) | payer MEDICARE, SELFPAY | PROVIDERS: PCP Internal Medicine; Visit Provider Urology | DX: R97.20 Elevated prostate specific antigen [PSA] (principal); N52.9 Male erectile dysfunction, unspecified; N41.1 Chronic prostatitis; Z79.899 Other long term (current) drug therapy | CPT/HCPCS: 81003; 99212 ==

== ENCOUNTER 2024-06-01 09:47 | Outpatient (AMB) | payer MEDICARE, SELFPAY ==
[2024-06-01 10:03] VITALS: BP 122/68; PULSE 48; TEMP 36.6; O2SAT 98; BMI 26.5
--- NOTE | 2024-06-01 10:03 | AM.OFFWIN_ITS ---
Intake Vital Signs 06/01/24 10:03 Height 6 ft 1 in Weight 201 lb BMI 26.5 BP 122/68 Blood Pressure Location Rt brachial Position Sitting Pulse 48 L Pulse Source Pulse Oximeter Temp 97.9 F Temp Source Oral Pulse Oximetry (%) 98 Oxygen Delivery Method Room Air Intake Visit Reasons: EP foot injury Intake Note: pt c/o LT Foot Big toe injury. Dropped a can of spaghetti on foot 3 weeks ago Patient Tobacco Use Status: Current someday Tobacco user Allergies No Known Allergies Allergy (Verified 06/01/24 10:03) Do you need a note to return to daycare/school/sports/work: No HPI HPI Comments History of Present Illness Details Patient is a 78-year-old male complaining of left toe pain after dropping a can of spaghetti sauce on his toe 3 weeks ago. He states it was immediately painful and became very bruised the next day and has been bruised since then. He denies being on a blood thinner. He states he has been walking on it but it is a little bit painful at times. It does not seem to be getting better so he decided it was time to come in to have it evaluated. He has not been using any ice or NSAIDs PFSH Medical History Obesity Surgical History H/O colonoscopy History of carpal tunnel surgery History of lumbar laminectomy Family History Father No problems noted. Mother No problems noted. Daughter Mental health disorder Social History Housing: House Alcohol intake: current Alcohol intake frequency: holidays/special occasions only Alcohol type: beer Patient Tobacco Use Status: Current someday Tobacco user e-Cigarette/Vaping Use: Never Used Second Hand Smoke Exposure: No Substance Use Type: Marijuana service: No Current occupational status: retired Cognitive needs: No Hearing needs: No Vision needs: Yes (glasses) Review of Systems Const All systems reviewed & are unremarkable except as noted in HPI and below Physical Exam Vital Signs: Last Vital Signs Temp 97.9 F 06/01/24 10:03 Pulse 48 L 06/01/24 10:03 BP 122/68 06/01/24 10:03 Pulse Ox 98 06/01/24 10:03 Oxygen Delivery Method Room Air 06/01/24 10:03 BMI result Body Mass Index 26.5 Const General: cooperative, healthy appearing, comfortable, no acute distress and well developed Orientation/consciousness: patient oriented x3 Limitations: no limitations HEENT Head: Yes normal to inspection Neck Neck: Yes normal visual inspection and Yes supple Neuro General: patient oriented x3 Extrem Right lower extremity: foot Details: normal capillary refill, tenderness Location: of the great toe, toes with normal ROM, ecchymosis dorsal lateral great toe , vascular exam Details: normal capillary refill, tendon exam Details: active flexion normal and active extension normal and motor-sensory exam Details: light-touch normal; no unusual warmth, edema noted, no edema, no abrasion and no laceration Assessment & Plan Assessment & Plan (1) Injury of toe on left foot: Code(s): S99.922A - Unspecified injury of left foot, initial encounter Qualifiers: Encounter type: initial encounter Qualified Code(s): S99.922A - Unsp ecified injury of left foot, initial encounter Plan: Physical exam remarkable for tenderness of the joint as well as significant ecchymosis, we will get x-ray to rule out any kind of fracture or dislocation though unlikely. Plan See above Orders: Orders XR toe LT min 2V Today S99.922A - Unspecified injury of left foot, initial encounter XR foot LT min 3V Today S99.922A - Unspecified injury of left foot, initial encounter Coding Level of Care Code Est Pt Level 4 (78484) Diagnoses Injury of toe on left foot, initial encounter S99.922A Encounter type: initial encounter
== END 2024-06-01 10:29 | disposition home or self-care (01) ==
PROVIDERS: PCP Internal Medicine; Visit Provider Physician Assistant
DX: S99.922A Unspecified injury of left foot, initial encounter (principal); W20.8XXA Other cause of strike by thrown, projected or falling object, initial encounter

== ENCOUNTER → 2024-06-01 09:47 | Outpatient (BNVA) | payer MEDICARE, SELFPAY | PROVIDERS: PCP Internal Medicine ==

== ENCOUNTER 2024-06-01 10:17 | Outpatient (REF) | payer MEDICARE, SELFPAY ==
--- NOTE | ~2024-06-01 | XR_ITS ---
EXAMINATION: XR FOOT, LEFT CLINICAL INFORMATION: Left foot injury. COMPARISON: October 26, 2015. TECHNIQUE: AP, lateral, and oblique views of the left foot. FINDINGS: There is joint space narrowing and subluxation of the second digit distal phalanx relative to the middle phalanx. There is severe joint space narrowing of the first TMT joint with marginal osteophytes. There are advanced degenerative changes involving the second and third TMT joints. No displaced fracture. Mild Achilles and is opposite the. Mild dorsal soft tissue swelling. XR/XR foot LT min 3V IMPRESSION: Severe osteoarthritis involving the first joint. Electronically signed by: Daniel Gonzalez MD 06/01/2024 12:26 PM EDT
== END 2024-06-01 10:18 | disposition home or self-care (01) ==
LOC: HO.HMGCX 10:17
PROVIDERS: PCP Internal Medicine; Visit Provider Physician Assistant
DX: S99.922A Unspecified injury of left foot, initial encounter (principal)
CPT/HCPCS: 73630; 99212

== ENCOUNTER 2024-06-10 13:15 | Outpatient (AMB) | payer MEDICARE, SELFPAY ==
[2024-06-10 13:16] VITALS: BP 126/58; PULSE 55; O2SAT 96; BMI 26.4
--- NOTE | 2024-06-10 13:16 | A.OFFPC_ITS ---
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 Accompanied by: Self / Same As Patient Allergies No Known Allergies Allergy (Verified 06/10/24 13:19) Medication List - Last Reconciled 06/10/24 by Ferddy Johnston MD acetaminophen (Tylenol Extra Strength) 500 mg PO Q6H PRN amlodipine 10 mg PO DAILY aspirin 81 mg PO DAILY atenolol 25 mg PO DAILY dicyclomine 20 mg PO QID finasteride 5 mg PO DAILY 90 days furosemide 20 mg PO DAILY naproxen 500 mg PO BID polyethylene glycol 3350 (Miralax) 17 grams PO DAILY PRN tizanidine 4 mg PO Q8H PRN tramadol 50 mg PO Q8H PRN Tobacco use date assessed: 10/24/23 Fall risk assessment: 2 + Falls in past year Last assessed Fall Risk: 06/10/24 Dental Screening Dental Screen Date: 10/24/23 HPI 3mof\u HPI Details HTN on Rx; doing well and compliant [facility] Medical History Obesity Surgical History H/O colonoscopy History of carpal tunnel surgery History of lumbar laminectomy Family History Father No problems noted. Mother No problems noted. Daughter Mental health disorder Social History Housing: House Alcohol intake: current Alcohol intake frequency: holidays/special occasions only Alcohol type: beer Patient Tobacco Use Status: Current someday Tobacco user e-Cigarette/Vaping Use: Never Used Second Hand Smoke Exposure: No Substance Use Type: Marijuana service: No Current occupational status: retired Cognitive needs: No Hearing needs: No Vision needs: Yes (glasses) Questionnaire PHQ-9 Over the last 2 weeks, how often have you been bothered by any of the following problems? 1. Little interest or pleasure in doing things: not at all 2. Feeling down, depressed, or hopeless: not at all 3. Trouble falling or staying asleep, or sleeping too much: not at all 4. Feeling tired or having little energy: not at all 5. Poor appetite or overeating: not at all 6. Feeling bad about yourself - or that you are a failure or have let yourself or your family down: not at all 7. Trouble concentrating on things, such as reading the newspaper or watching television: not at all 8. Moving or speaking so slowly that other people could have noticed. Or the opposite - being so fidgety or restless that you have been moving around a lot more than usual: not at all 9. Thoughts that you would be better off or of hurting yourself in some way: not at all Total score: 0 Depression Screening Interpretation: Negative Depression Screening Done: Yes Source: Developed by Drs. Joe Gonzalez, Lauren Basurto, Raj Pugh and colleagues, with an educational ferdinand from [employer]. Thrive Questionnaire Date Thrive assessed: 10/24/23 AUDIT C Alcohol Use Questionnaire (AUDIT-C) 1. How often do you have a drink containing alcohol?: Monthly or less 2. How many drinks containing alcohol do you have on a typical day when you are drinking?: 3 or 4 3. How often do you have six or more drinks on one occasion?: Never Total Score: 2 Score Reviewed/Action Taken: Yes HANSEL-7 AMB Questionnaire HANSEL-7 Date HANSEL - 7 assessed: 10/24/23 Source: Developed by Drs. Joe Gonzalez, Lauren Basurto, Raj Pugh and colleagues, with an educational ferdinand from [employer]. Review of Systems Const Denies chills, Denies headache(s) and Denies weight loss ENT Denies headache(s) Card Denies chest pain, Denies syncope, Denies irregular heart rhythm and Denies dyspnea Resp Denies chest congestion, Denies cough and Denies dyspnea GI Denies abdominal pain, Denies change in stool character, Denies nausea and Denies vomiting Musc Denies deformity and Denies joint swelling Neuro Denies syncope and Denies headache(s) Physical exam (Primary Care) Vital Signs: Last Vital Signs Pulse 55 06/10/24 13:16 BP 126/58 L 06/10/24 13:16 Pulse Ox 96 06/10/24 13:16 Oxygen Delivery Method Room Air 06/10/24 13:16 BMI result Body Mass Index 26.4 Tobacco/Smoking Status: Tobacco use Status Tobacco use date assessed 10/24/23 06/10/24 13:22 Patient Tobacco Use Status Current someday Tobacco 06/10/24 13:22 e-Cigarette/Vaping Use Never Used 06/10/24 13:22 PHQ-9: PHQ-9 Score PHQ-9: Total score 0 06/10/24 13:22 Depression Screening Interpretation: Negative Thrive Assessment: Date of Thrive Assessment Date Thrive assessed 10/24/23 06/10/24 13:22 Const General: cooperative, comfortable, no acute distress and alert Neck Neck: Yes no lymphadenopathy Thyroid: Thyroid normal Resp Effort & Inspection: normal respiratory effort Auscultation: clear to auscultation bilaterally Percussion: percussion normal Cardio Jugular venous distension: no JVD Palpation: normal PMI Rate: regular rate Rhythm: regular rhythm Heart sounds: S1 normal heart sound present and S2 normal heart sound present GI Inspection: Yes normal to inspection Palpation (GI): No hepatosplenomegaly present Skin General skin exam: no rashes or lesions noted Extrem General: Yes no clubbing, cyanosis or edema Coding Level of Care Code Est Pt Level 3 (56037) Diagnoses Hypertension I10 Assessment & Plan Assessment & Plan (1) Hypertension: Code(s): I10 - Essential (primary) hypertension Category: Medical Plan: stable; same rx
== END 2024-06-10 13:45 | disposition home or self-care (01) ==
PROVIDERS: PCP Internal Medicine; Visit Provider Internal Medicine
DX: I10 Essential (primary) hypertension (principal); Z23 Encounter for immunization

== ENCOUNTER → 2024-06-10 13:15 | Outpatient (BNVA) | payer MEDICARE, SELFPAY | PROVIDERS: PCP Internal Medicine; Visit Provider Internal Medicine | DX: Z23 Encounter for immunization (principal); I10 Essential (primary) hypertension | CPT/HCPCS: 90471; 90656; 96127; 99212 ==

== ENCOUNTER 2024-07-07 09:14 | Outpatient (AMB) | payer MEDICARE, SELFPAY ==
--- NOTE | 2024-07-07 09:17 | MHC.PC.OV ---
Vital Signs 07/07/24 09:18 Height 6 ft 1 in Weight 197 lb 4 oz BMI 26.0 BP 146/60 H Blood Pressure Location Lt brachial Position Sitting Pulse 77 Pulse Source Pulse Oximeter Pulse Oximetry (%) 96 Oxygen Delivery Method Room Air Intake Visit Reasons: Dizziness Intake Note: Patient is here to follow up on Dizziness, Vertigo, Unsteady gait, falls. 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 Accompanied by: Self / Same As Patient Allergies No Known Allergies Allergy (Verified 07/07/24 09:18) Medication List - Last Reconciled 07/07/24 by Freddy Johnston MD acetaminophen (Tylenol Extra Strength) 500 mg PO Q6H PRN amlodipine 10 mg PO DAILY aspirin 81 mg PO DAILY atenolol 25 mg PO DAILY dicyclomine 20 mg PO QID finasteride 5 mg PO DAILY 90 days furosemide 20 mg PO DAILY meclizine 25 mg PO QID PRN naproxen 500 mg PO BID polyethylene glycol 3350 (Miralax) 17 grams PO DAILY PRN tizanidine 4 mg PO Q8H PRN tramadol 50 mg PO Q8H PRN Tobacco use date assessed: 07/07/24 Fall risk assessment: 2 + Falls in past year Last assessed Fall Risk: 07/07/24 Dental Screening Dental Screen Date: 10/24/23 HPI Dizziness HPI Details vertigo for a month PFSH Medical History Obesity Surgical History H/O colonoscopy History of carpal tunnel surgery History of lumbar laminectomy Family History Father No problems noted. Mother No problems noted. Daughter Mental health disorder Social History Housing: House Alcohol intake: current Alcohol intake frequency: holidays/special occasions only Alcohol type: beer Patient Tobacco Use Status: Current someday Tobacco user e-Cigarette/Vaping Use: Never Used Second Hand Smoke Exposure: No Substance Use Type: Marijuana service: No Current occupational status: retired Cognitive needs: No Hearing needs: No Vision needs: Yes (glasses) Questionnaire Thrive Questionnaire Date Thrive assessed: 10/24/23 HANSEL-7 AMB Questionnaire HANSEL-7 Date HANSEL - 7 assessed: 10/24/23 Source: Developed by Drs. Joe Gonzalez, Lauren Basurto, Raj Pugh and colleagues, with an educational ferdinand from [employer]. Review of Systems Const Denies chills, Denies headache(s) and Denies weight loss ENT Denies headache(s) Card Denies chest pain, Denies syncope, Denies irregular heart rhythm and Denies dyspnea Resp Denies chest congestion, Denies cough and Denies dyspnea GI Denies abdominal pain, Denies change in stool character, Denies nausea and Denies vomiting Musc Denies deformity and Denies joint swelling Neuro Denies syncope and Denies headache(s) Physical exam (Primary Care) Vital Signs: Last Vital Signs Pulse 77 07/07/24 09:18 BP 146/60 H 07/07/24 09:18 Pulse Ox 96 07/07/24 09:18 Oxygen Delivery Method Room Air 07/07/24 09:18 BMI result Body Mass Index 26.0 Tobacco/Smoking Status: Tobacco use Status Tobacco use date assessed 07/07/24 07/07/24 09:21 Patient Tobacco Use Status Current someday Tobacco 07/07/24 09:21 e-Cigarette/Vaping Use Never Used 07/07/24 09:21 Thrive Assessment: Date of Thrive Assessment Date Thrive assessed 10/24/23 07/07/24 09:21 Const General: cooperative, comfortable, no acute distress and alert Neck Neck: Yes no lymphadenopathy Thyroid: Thyroid normal Resp Effort & Inspection: normal respiratory effort Auscultation: clear to auscultation bilaterally Percussion: percussion normal Cardio Jugular venous distension: no JVD Palpation: normal PMI Rate: regular rate Rhythm: regular rhythm Heart sounds: S1 normal heart sound present and S2 normal heart sound present GI Inspection: Yes normal to inspection Palpation (GI): No hepatosplenomegaly present Skin General skin exam: no rashes or lesions noted Extrem General: Yes no clubbing, cyanosis or edema Coding Level of Care Code Est Pt Level 3 (86285) Diagnoses Vertigo R42 Assessment & Plan Assessment & Plan (1) Vertigo: Code(s): R42 - Dizziness and giddiness Category: Medical Plan: CT and labs; rx sent Orders: Orders Complete Blood Count Auto Diff Today Z13.0 - Encounter for screening for diseases of the blood and blood-forming organs and certain disorders involving the immune mechanism Basic Metabolic Panel Today R42 - Dizziness and giddiness CT head/brain wo IV con Today R42 - Dizziness and giddiness Medications: New meclizine 25 mg PO QID PRN 30 tabs 2RF dizziness Refilled finasteride 5 mg PO DAILY 90 tabs 2RF 90 days N13.8 - Other obstructive and reflux uropathy, N40.1 - Benign prostatic hyperplasia with lower urinary tract symptoms, R33.9 - Retention of urine, unspecified
[2024-07-07 09:18] VITALS: BP 146/60; PULSE 77; O2SAT 96; BMI 26.0
== END 2024-07-07 09:42 | disposition home or self-care (01) ==
LOC: HO.HMCH 09:14
PROVIDERS: PCP Internal Medicine; Visit Provider Internal Medicine
DX: R42 Dizziness and giddiness (principal)

== ENCOUNTER 2024-07-07 09:14 | Outpatient (REF) | payer MEDICARE, SELFPAY ==
[2024-07-07 10:09] LABS: MANUAL DIFF FLAG NO
[2024-07-07 11:01] LABS: Basophils Absolute Auto 0.1 X10*3/uL (0.0-0.2); Basophils Percent Auto 0.8 % (0-2); Eosinophils Absolute Auto 0.2 X10*3/uL (0.0-0.4); Eosinophils Percent Auto 3.7 % (0-4); Hematocrit 42.2 % (42.0-52.0); Hemoglobin 14.4 g/dl (14.0-18.0); Imm Gran Abs Auto 0.02 X10*3/uL (0.00-0.03); Imm Gran Pct Auto 0.3 % (0.0-0.4); Lymphocytes Absolute Auto 1.8 X10*3/uL (1.2-4.9); Lymphocytes Percent Auto 29.4 % (20-40); Mean Corpuscular HGB Conc 34.1 g/dl (31.0-36.0); Mean Corpuscular Hemoglobin 32.7 pg (27.0-33.0); Mean Corpuscular Volume 95.9 fL (80.0-98.0); Mean Platelet Volume 11.9 fL (9.4-12.4); Monocytes Absolute Auto 0.5 X10*3/uL (0.1-1.2); Monocytes Percent Auto 7.8 % (2-11); Neutrophils Absolute Auto 3.6 x10*3/uL (2.0-8.3); Platelet Count 166 X10*3/uL (160-400); Red Cell Distribution Width 13.7 % (11.0-16.0); White Blood Count 6.2 X10*3/uL (4.8-10.8)
[2024-07-07 11:51] LABS: Anion Gap 12 (12-20); Blood Urea Nitrogen 22 mg/dL (9-16); Calcium 9.5 mg/dL (8.4-10.2); Carbon Dioxide 23 mmol/L (22-29); Chloride 111 mmol/L (96-108); Estimated Glomerular Filt Rate > 60; Glucose Random 85 mg/dL (60-115); Potassium 4.2 mmol/L (3.3-5.1); Sodium 142 mmol/L (135-145)
== END 2024-07-07 09:15 | disposition home or self-care (01) ==
LOC: HO.LAB 09:14
PROVIDERS: PCP Internal Medicine; Visit Provider Internal Medicine
DX: R42 Dizziness and giddiness (principal); Z13.0 Encounter for screening for diseases of the blood and blood-forming organs and certain disorders involving the immune mechanism; N13.8 Other obstructive and reflux uropathy; N40.1 Benign prostatic hyperplasia with lower urinary tract symptoms; R33.9 Retention of urine, unspecified; Z79.899 Other long term (current) drug therapy
CPT/HCPCS: 36415; 80048; 85025; 99212

== ENCOUNTER 2024-07-09 19:50 | Emergency (ER) | payer MEDICARE, SELFPAY ==
--- NOTE | ~2024-07-09 | XR_ITS ---
EXAMINATION: XR SHOULDER, LEFT CLINICAL INFORMATION: Multiple falls, pain COMPARISON: 12/18/2023 TECHNIQUE: Three views of the left shoulder. FINDINGS: No displaced fracture. The humeral head is high riding relative to the glenoid. Moderate degenerative changes in the acromioclavicular joint and glenohumeral joint. Soft tissues unremarkable. XR/XR shoulder LT min 2V IMPRESSION: No displaced fracture. High riding humeral head relative to the glenoid suggests chronic rotator cuff injury. Moderate degenerative changes in the shoulder. Electronically signed by: Joe Thompson MD 07/09/2024 10:28 PM EDT
--- NOTE | ~2024-07-09 | CT_ITS ---
EXAMINATION: CT HEAD WITHOUT CONTRAST CT CERVICAL SPINE WITHOUT CONTRAST CLINICAL INFORMATION: Multiple falls. COMPARISON: None available. TECHNIQUE: Contiguous axial imaging was performed from the skull base to vertex without intravenous administration of contrast. Contiguous axial imaging was performed from the upper chest through the skull base without intravenous administration of contrast. Coronal and sagittal reformats were obtained at the acquisition workstation. This CT examination was performed using dose optimization techniques as appropriate, variously including the following: *Automated exposure control. *Adjustment of mA and/or kV according to patient size (this includes techniques or standardized protocols for targeted exams where dose is matched to indication/reason for exam; i.e. extremities or head). *Use of iterative reconstruction technique. DLP: 1014 mGy-cm FINDINGS: Head: There is no evidence of acute intracranial hemorrhage or edematous territorial infarction. Johnson-white matter differentiation is preserved. Scattered and partially confluent hypoattenuation in the periventricular and deep white matter are consistent with moderate microangiopathy. Proportional prominence of the ventricles and sulcal spaces without evidence of obstructive hydrocephalus. No abnormal mass effect or midline shift. No extra-axial fluid collections. Calcific atherosclerotic disease of the intracranial internal carotid and vertebral arteries. No hyperdense vessel sign. No acute soft tissue or osseous abnormalities. Near-complete opacification of the right sphenoid air cell with hyperostotic changes of the ambrose. Mild mucosal thickening of the remaining paranasal sinuses. The mastoid air cells and middle ear cavities are clear. Cervical Spine: The atlantooccipital articulations remain well aligned. 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 There appears to be chronic mild retrosubluxation atlantoaxial articulations in the setting. Advanced degenerative arthropathy of the atlantodental articulation. Partial straightening of the normal cervical lordosis. Moderate degenerative anterolistheses of C4 on C5 and C7 on T1. Otherwise, there is anatomic alignment of the vertebral bodies and posterior elements. Advanced degenerative disc disease from C3-T1. Moderate degenerative disc disease at C2-C3 and T1-T2. Facet and uncovertebral joint arthropathy leads to osseous encroachment on the neural foramina from C2-T2. No evidence of acute fracture or subluxation. The vertebral body heights are maintained. There is no prevertebral soft tissue swelling. The thyroid gland and remaining cervical soft tissues are within normal limits. The lung apices demonstrate no abnormalities. CT/CT cervical spine wo IV con IMPRESSION: 1. No evidence of acute intracranial hemorrhage or edematous territorial infarction. Moderate underlying microangiopathy and generalized cerebral volume loss. 2. No evidence of acute fracture or traumatic subluxation of the cervical spine. Advanced multilevel degenerative spondyloarthropathy of the cervical spine. Electronically signed by: Amadou Hurtado DO 07/09/2024 10:56 PM EDT
[2024-07-09 19:55] VITALS: BP 130/80; PULSE 60; O2SAT 98
[2024-07-09 20:04] VITALS: BP 133/67; PULSE 56; RESP 15; TEMP 36.7; O2SAT 97; BMI 26.7
[2024-07-09 20:11] VITALS: BP 133/67; PULSE 56; RESP 15; TEMP 36.7; O2SAT 97
--- NOTE | 2024-07-09 20:19 | PC.NURSE ---
Patient states he doesn't know when he has to go, condom catheter placed to help keep patient skin clean and dry.
--- NOTE | 2024-07-09 20:20 | ECG_ITS ---
Test Reason : FALL Blood Pressure : / mmHG Vent. Rate : 049 BPM Atrial Rate : 049 BPM P-R Int : 186 ms QRS Dur : 100 ms QT Int : 474 ms P-R-T Axes : 066 051 072 degrees QTc Int : 428 ms Sinus bradycardia Otherwise normal ECG When compared with ECG of 24-JUL-2023 13:42, No significant change was found Referred By: Generic ED Physician Electronically Signed By:NOLVIA JOHNSON
--- NOTE | 2024-07-09 20:36 | MHC.EDTECH ---
Patient BIBA,changed into hospital attire,vitals taken,pt placed on the chief security officer,EKG taken per order and signed by provider,labs drawn and sent to lab. Patient came in with a pullup on, patient was incont. of a small amount of soft brown stool,candelaria care given,[place] Cath, placed to keep pt clean and dry,tolerated well,RN at bedside with this mortgage or loan underwriter,call toure in reach
[2024-07-09 20:39] LABS: MANUAL DIFF FLAG NO
[2024-07-09 20:55] LABS: Basophils Percent Auto 0.5 % (0-2); Eosinophils Absolute Auto 0.3 X10*3/uL (0.0-0.4); Eosinophils Percent Auto 5.6 % (0-4); Hematocrit 38.9 % (42.0-52.0); Hemoglobin 13.4 g/dl (14.0-18.0); Imm Gran Abs Auto 0.01 X10*3/uL (0.00-0.03); Imm Gran Pct Auto 0.2 % (0.0-0.4); Lymphocytes Absolute Auto 2.2 X10*3/uL (1.2-4.9); Lymphocytes Percent Auto 35.7 % (20-40); Mean Corpuscular HGB Conc 34.4 g/dl (31.0-36.0); Mean Corpuscular Hemoglobin 32.6 pg (27.0-33.0); Mean Corpuscular Volume 94.6 fL (80.0-98.0); Mean Platelet Volume 10.8 fL (9.4-12.4); Monocytes Absolute Auto 0.6 X10*3/uL (0.1-1.2); Monocytes Percent Auto 10.2 % (2-11); Neutrophils Absolute Auto 2.9 x10*3/uL (2.0-8.3); Neutrophils Percent Auto 47.8 % (45-73); Platelet Count 150 X10*3/uL (160-400); Red Blood Count 4.11 X10*6/uL (4.60-5.80); Red Cell Distribution Width 13.7 % (11.0-16.0); White Blood Count 6.1 X10*3/uL (4.8-10.8)
[2024-07-09 20:57] LABS: Alanine Aminotransferase 17 U/L (0-40); Albumin Level 3.9 g/dL (3.5-5.0); Alkaline Phosphatase 62 U/L (39-117); Anion Gap 13 (12-20); Aspartate Amino Transferase 27 U/L (5-37); Bilirubin Total 0.7 mg/dL (0.0-1.0); Blood Urea Nitrogen 25 mg/dL (9-16); Calcium 9.9 mg/dL (8.4-10.2); Carbon Dioxide 22 mmol/L (22-29); Chloride 111 mmol/L (96-108); Creatinine Clr Calc Pharmacy 77.7; Estimated Glomerular Filt Rate > 60; Glucose Random 98 mg/dL (60-115); Potassium 3.8 mmol/L (3.3-5.1); Sodium 142 mmol/L (135-145); Total Protein 6.5 g/dL (6.5-8.0)
[2024-07-09 21:02] LABS: B Type Natriuretic Peptide 71 pg/mL (<100)
[2024-07-09 21:03] LABS: Troponin-I High Sensitivity 11.4 ng/L (<3.5-35.0)
--- NOTE | 2024-07-09 21:35 | ED_ITS ---
HPI - Fall General Chief Complaint: Fall Stated Complaint: Fall, arm/leg pain Time Seen by Provider: 07/09/24 21:23 Source: patient Mode of arrival: ambulatory Limitations: no limitations History of Present Illness ED Provider: Dr. Johanna Pillai HPI Narrative: Patient comes to the emergency room via ambulance from home. Patient's seems that he has been falling more often. Reports 5 falls in about a week. Patient states that he lives by himself, in about a week he is about to start elderly services at home. Patient states that the last few times that he has fallen, patient is able to curl up to a chair or couch and help himself up. However, today the patient was unable to do so due to the pain around his left shoulder. Patient states that he has not lost consciousness, denies hitting his head or losing consciousness. Patient states that he seems to keep falling on the left side of his body. Related Data Home Medications ?Medication ?Instructions ?Recorded ?Confirmed polyethylene glycol 3350 17 17 g PO DAILY PRN 05/08/23 07/07/24 gram/dose oral powder (Miralax) aspirin 81 mg capsule 81 mg PO DAILY 12/18/23 07/07/24 Previous Rx's ?Medication ?Instructions ?Recorded acetaminophen 500 mg tablet 500 mg PO Q6H PRN pain #30 tabs 09/24/23 (Tylenol Extra Strength) furosemide 20 mg tablet 20 mg PO DAILY #90 tabs 11/17/23 tramadol 50 mg tablet 50 mg PO Q8H PRN pain #30 tabs 03/27/24 amlodipine 10 mg tablet 10 mg PO DAILY #90 tabs 04/28/24 naproxen 500 mg tablet 500 mg PO BID #180 tabs 05/04/24 tizanidine 4 mg tablet 4 mg PO Q8H PRN muscle spasticity 06/15/24 #60 tabs atenolol 25 mg tablet 25 mg PO DAILY #90 tabs 06/22/24 dicyclomine 20 mg tablet 20 mg PO QID #30 tabs 07/06/24 finasteride 5 mg tablet 5 mg PO DAILY 90 days #90 tabs 07/07/24 meclizine 25 mg tablet 25 mg PO QID PRN dizziness #30 tabs 07/07/24 Allergies Allergy/AdvReac Type Severity Reaction Status Date / Time No Known Allergies Allergy Verified 07/09/24 20:08 Review of Systems 2 Review of Systems: Constitutional : No Weight loss, No Fever, No Chills, No Night Sweats, No Fatigue, No Malaise, complaining of progressive weakness and multiple falls ENT/Mouth : No Hearing loss, No Ear Pain, No Nasal Congestion, No Sinus Pain, No Hoarseness, No sore throat, No Rhinorrhea, No Swallowing Difficulty Eyes: No Eye Pain, No Swelling, No Redness, No Foreign Body, No Discharge, No Vision Changes Cardiovascular : No Chest Pain, No SOB, No Dyspnea on Exertion, No Orthopnea, No Edema, No Palpitations Respiratory : No Cough, No Sputum, No Wheezing, No Smoke Exposure, No Dyspnea Gastrointestinal : No Nausea, No Vomiting, No Diarrhea, No Constipation, No abdominal Pain, No Hematochezia, No Melena Genitourinary : no irregular bleeding, No Dysuria, No Urinary Frequency, No Hematuria, No Urinary Incontinence, No Urgency, No Flank Pain, No Urinary Flow Changes, No Hesitancy Musculoskeletal : Complaining of left shoulder pain, No Myalgias, No Joint Swelling Skin : No Skin Lesions, No rash Neuro : No Weakness, No Numbness, No Paresthesias, No Loss of Consciousness, No Dizziness, No Headache Psych : No Anxiety/Panic, No Depression, No SI/HI/AH/VH, No Social Issues, Heme/Lymph: No Bruising, No Bleeding,No Lymphadenopathy Endocrine : No Polyuria, No Polydipsia, No Temperature Intolerance PMFSH Past Medical History Medical History (Updated 07/10/24 @ 00:16 by Johanna Pillai MD) Hypertension Vertigo Obesity Surgical History H/O colonoscopy History of carpal tunnel surgery History of lumbar laminectomy Family History Family History Father No problems noted. Mother No problems noted. Daughter Mental health disorder Social History Social History Housing: House Alcohol intake: current Alcohol intake frequency: holidays/special occasions only Alcohol type: beer Patient Tobacco Use Status: Current someday Tobacco user Smoked in Last 30 Days: Yes e-Cigarette/Vaping Use: Never Used Second Hand Smoke Exposure: No Use of substances other than those prescribed or required for medical reasons: Yes Substance Use Type: Marijuana Advance Directives: No Advance Directives Information Provided: Yes Do you have a plan to hurt others: No Plan service: No Current occupational status: retired Cognitive needs: No Hearing needs: No Vision needs: Yes (glasses) Physical Exam 2 Vital Signs: Vital Signs: Last Vital Signs Temp 98.0 F 07/09/24 20:11 Pulse 52 07/09/24 23:24 Resp 18 07/09/24 23:24 BP 130/103 H 07/09/24 23:24 Pulse Ox 99 07/09/24 23:24 O2 Del Method Room Air 07/09/24 23:24 BMI result Body Mass Index 26.7 Const: Other: Appearance: Alert. Oriented X3. No acute distress. Eyes: Pupils equal, round and reactive to light. ENT: Pharynx normal. Neck: Normal inspection. Neck supple. No lymph nodes noted. No crepitus CVS: Normal heart rate and rhythm. Pulses normal. Normal S1 and S2 Respiratory: No respiratory distress. Breath sounds normal. No Wheezing. No rales Abdomen: Soft and nontender. No rigidity. No distention. Skin: Skin warm and dry. Normal skin color. Normal skin turgor. Extremities: +1 pitting edema bilaterally, no calf tenderness No Lacerations. No Rash. Patient unable to abduct the left arm due to pain in the shoulder, no obvious deformation or ecchymosis Neuro: Oriented X 3. No motor deficit. No sensory deficit. Moving all extremities. No slurred speech. CN 2 through 12 grossly intact Psych: calm, cooperative, normal affect Medical Decision Making Medical Decision Making MDM Narrative: -my interpretation of labs: Patient's hematology chemistry LFTs troponin and BNP within normal limits. -shoulder x-ray does not show any acute the subluxation or fracture -CT scan of the head and neck do not show any acute intracranial hemorrhage, territorial or infection or traumatic subluxation of the cervical spine -overall, patient has services starting in 1 week. However, this is a week from now and patient is unable to go home and take care himself. In the last few days patient has fallen at least 5 times. -PT case management pending -physician observation started that 00:10 Differential Diagnosis Differential Diagnoses: The differential diagnosis associated with the presentation includes (UTI, intracranial bleed, stroke) Admission/Observation Consideration of admission/observation: Escalation of care including admission/observation considered (Patient is under physician observation waiting for PT and case management evaluation) Lab Data MDM Lab Attestation statement: I reviewed the patient's lab results. 07/09/24 20:34 07/09/24 20:34 Labs: Lab Results 07/09/24 Range/Units 20:34 WBC 6.1 (4.8-10.8) X10*3/uL RBC 4.11 L (4.60-5.80) X10*6/uL Hgb 13.4 L (14.0-18.0) g/dl Hct 38.9 L (42.0-52.0) % MCV 94.6 (80.0-98.0) fL MCH 32.6 (27.0-33.0) pg MCHC 34.4 (31.0-36.0) g/dl RDW 13.7 (11.0-16.0) % Plt Count 150 L (160-400) X10*3/uL MPV 10.8 (9.4-12.4) fL Immature Gran % (Auto) 0.2 (0.0-0.4) % Neut % (Auto) 47.8 (45-73) % Lymph % (Auto) 35.7 (20-40) % Ventura % (Auto) 10.2 (2-11) % Eos % (Auto) 5.6 H (0-4) % Baso % (Auto) 0.5 (0-2) % Lymph # (Auto) 2.2 (1.2-4.9) X10*3/uL [place]ura # (Auto) 0.6 (0.1-1.2) X10*3/uL Eos # (Auto) 0.3 (0.0-0.4) X10*3/uL Baso # (Auto) 0.0 (0.0-0.2) X10*3/uL Abs Immat Gran (auto) 0.01 (0.00-0.03) X10*3/uL Absolute Neuts (auto) 2.9 (2.0-8.3) x10*3/uL Absolute Nucleated RBC 0.000 (0.0-0.012) X10*3/uL Nucleated RBC % (auto) 0.0 (0.0-0.2) /100WBC Sodium 142 (135-145) mmol/L Potassium 3.8 (3.3-5.1) mmol/L Chloride 111 H (96-108) mmol/L Carbon Dioxide 22 (22-29) mmol/L Anion Gap 13 (12-20) BUN 25 H (9-16) mg/dL Creatinine 0.86 (0.5-1.4) mg/dL Estim Creat Clear Calc 77.7 Estimated GFR > 60 Random Glucose 98 (60-115) mg/dL Calcium 9.9 (8.4-10.2) mg/dL Total Bilirubin 0.7 (0.0-1.0) mg/dL AST 27 (5-37) U/L ALT 17 (0-40) U/L Alkaline Phosphatase 62 (39-117) U/L Troponin I High Sens 11.4 (<3.5-35.0) ng/L B-Natriuretic Peptide 71 (<100) pg/mL Total Protein 6.5 (6.5-8.0) g/dL Albumin 3.9 (3.5-5.0) g/dL Independent Interpretation I performed an independent interpretation of an: Plain X-Ray and CT Scan Radiology Impression Discussion of test interpretation with radiology: I have reviewed the radiologist's reading. Radiologist Impression: No displaced fracture. The humeral head is high riding relative to the glenoid. Moderate degenerative changes in the acromioclavicular joint and glenohumeral joint. Soft tissues unremarkable. XR/XR shoulder LT min 2V IMPRESSION: No displaced fracture. High riding humeral head relative to the glenoid suggests chronic rotator cuff injury. Moderate degenerative changes in the shoulder. Head: There is no evidence of acute intracranial hemorrhage or edematous territorial infarction. Johnson-white matter differentiation is preserved. Scattered and partially confluent hypoattenuation in the periventricular and deep white matter are consistent with moderate microangiopathy. Proportional prominence of the ventricles and sulcal spaces without evidence of obstructive hydrocephalus. No abnormal mass effect or midline shift. No extra-axial fluid collections. Calcific atherosclerotic disease of the intracranial internal carotid and vertebral arteries. No hyperdense vessel sign. No acute soft tissue or osseous abnormalities. Near-complete opacification of the right sphenoid air cell with hyperostotic changes of the ambrose. Mild mucosal thickening of the remaining paranasal sinuses. The mastoid air cells and middle ear cavities are clear. Cervical Spine: The atlantooccipital articulations remain well aligned. 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 There appears to be chronic mild retrosubluxation atlantoaxial articulations in the setting. Advanced degenerative arthropathy of the atlantodental articulation. Partial straightening of the normal cervical lordosis. Moderate degenerative anterolistheses of C4 on C5 and C7 on T1. Otherwise, there is anatomic alignment of the vertebral bodies and posterior elements. Advanced degenerative disc disease from C3-T1. Moderate degenerative disc disease at C2-C3 and T1-T2. Facet and uncovertebral joint arthropathy leads to osseous encroachment on the neural foramina from C2-T2. No evidence of acute fracture or subluxation. The vertebral body heights are maintained. There is no prevertebral soft tissue swelling. The thyroid gland and remaining cervical soft tissues are within normal limits. The lung apices demonstrate no abnormalities. Independent Historian Clinical information obtained from an independent historian. History obtained from or confirmed by: EMS Critical Care Time Critical Care Time Critical Care Time: Yes Total Critical Care Time: 30 Attestation: I have personally provided critical care time. Time includes review of lab data, radiology results, discussion with consultants, and monitoring for potential decompensation. Intervention performed as documented. Discharge Plan Discharge Clinical Impression: Multiple falls Patient Disposition: Still a Patient Prescriptions: No Action furosemide 20 mg tablet 20 mg PO DAILY Qty: 90 8RF amlodipine 10 mg tablet 10 mg PO DAILY Qty: 90 0RF naproxen 500 mg tablet 500 mg PO BID Qty: 180 0RF tizanidine 4 mg tablet 4 mg PO Q8H PRN (Reason: muscle spasticity) Qty: 60 4RF atenolol 25 mg tablet 25 mg PO DAILY Qty: 90 0RF dicyclomine 20 mg tablet 20 mg PO QID Qty: 30 4RF acetaminophen [Tylenol Extra Strength] 500 mg tablet 500 mg PO Q6H PRN (Reason: pain) Qty: 30 0RF aspirin 81 mg capsule 81 mg PO DAILY tramadol 50 mg tablet 50 mg PO Q8H PRN (Reason: pain) Qty: 30 0RF polyethylene glycol 3350 [Miralax] 17 gram/dose powder 17 g PO DAILY PRN finasteride 5 mg tablet 5 mg PO DAILY 90 Days Qty: 90 2RF meclizine 25 mg tablet 25 mg PO QID PRN (Reason: dizziness) Qty: 30 2RF Print Language: Vietnamese
[2024-07-09 23:24] VITALS: BP 130/103; PULSE 52; RESP 18; O2SAT 99
[2024-07-10] VITALS (8 sets, daily range): BP systolic 128–164; BP diastolic 62–93; PULSE 48–56; RESP 14–20; TEMP 36.2–36.8; O2SAT 94–98
[2024-07-10 00:16] LABS: Appearance Urine Cloudy; Color Urine Yellow; Glucose Urine UA Negative (Negative); Leukocyte Esterase Urine Negative (Negative); Nitrite Urine Negative (Negative); PH 7.5 (5.0-9.0); Specific Gravity - Urine 1.015 (1.005-1.025); Urine Blood Negative (Negative); Urine Ketones Negative (Negative); Urine Protein Negative (Neg-Trace)
[2024-07-10 00:19] LABS: Bacteria Urine None Seen (None Seen); Hyaline Casts Urine 0-2 /LPF (0-2); RBC Urine 0-2 /HPF (0-2); Squamous Epithelial Cell Urine 0-2 /HPF (0-2); WBC Urine 0-5 /HPF (0-5)
--- NOTE | 2024-07-10 05:21 | MHC.EDTECH ---
Hourly rounds and vitals completed,offered patient a hospital bed,pt refused,RN made aware,belongings list completed,copy placed in chart
--- NOTE | 2024-07-10 05:32 | MHC.EDTECH ---
Emptied 800MLS of yellow urine,patient was repositioned to comfort
--- NOTE | 2024-07-10 06:00 | PC.NURSE ---
Report called to Bridget JIMENEZ in overflow
[2024-07-10 10:22] LABS: IDNOW Serial# 08D9AD1C
[2024-07-10 10:23] LABS: COVID-19 Test Negative (Negative)
--- NOTE | 2024-07-10 11:13 | PC.NURSE ---
Case management (Asha Acosta) at bedside speaking with patient and family.
[2024-07-10] MEDS: Acetaminophen 325 MG TABLET 650 MG PO (12:19)
--- NOTE | 2024-07-10 12:59 | PHA.MEDREC ---
Addendum entered by Stephanie Zuleta RPh 07/10/24 13:24: reviewed by [facility]. Original Note: Pharmacy Consult ? Medication Reconciliation Pharmacy reviewed med rec done by nursing. Spoke to nurse and she stated patient was not taking the Tylenol 500mg tab anymore and did not know how to take it off the med rec. Spoke with patient and he confirmed he is not taking the Tylenol 500mg tab and confirmed the rest of his medications and no changes from nurses confirmation to me.
--- NOTE | 2024-07-10 13:51 | MHC.CM.ED ---
Addendum entered by Asha Acosta 07/10/24 15:59: HCP completed, signed and witnessed. Original given to patient. Copy placed in chart. Original Note: Received case management consult overnight. Patient came to the ER due to a fall. Work up essentially negative. Physical therapy eval completed. Short term rehab is recommended. Met with patient, son Rene and daughter in law Sally in regards to discharge planning. Patient lives alone. Copy of HCP requested from [facility]. Sally requesting referral to [facility]. Patient has [employer] Medicare. Referral made to both facilities. Neither are contracted with patient's insurance. Referral broadcasted to all facilities within 15 miles of patient's home to all faciities contracted with patient's insurance. [facility], [facility], [facility], [facility], [facility] and [facility] are able to offer a bed. Sally stated We have 72 hours to decide, right? T/W explained that is not a policy. Also explained patient is an ER patient and not admitted to the hospital. List of facilities that are able to offer a bed provided. Sally stated I have to see these places. T/W explained a 1st choice would be needed by 3pm. Sally and Rene went to look at facilities. Received telephone call from Sally stating they accept a bed at [facility]. They also requested a private room. [facility] is in the process of obtaining insurance auth. There is no private room available. Continue to monitor for d/c needs.
[2024-07-10] MEDS: Aspirin Enteric Coated 81 MG TABLET.DR PO (15:32)
[2024-07-10] MEDS: Finasteride 5 MG TABLET PO (15:33)
[2024-07-10] MEDS: Furosemide 20 MG TABLET PO (15:33)
[2024-07-10] MEDS: amLODIPine Besylate 10 MG TABLET PO (15:33)
--- NOTE | 2024-07-10 15:40 | PC.NURSE ---
Called and spoke with pharmacist (Bhavik) regarding Atenolol 25mg. Medication not available in Overflow ED pyxis. Will administer medication upon arrival from pharmacy department. Pt aware.
[2024-07-10] MEDS: atenoloL 25 MG TABLET PO (15:48)
[2024-07-10] MEDS: Dicyclomine HCl 10 MG CAPSULE 20 MG PO ×2 (17:18→20:19)
[2024-07-10] MEDS: NaPROXEN 500 MG TABLET PO (20:20)
--- NOTE | 2024-07-10 23:29 | PC.NURSE ---
Assumed care of patient at 1900. Denies pain at present time. Patient resting comfortably. Bed alarm on , call toure within reach.
[2024-07-11 04:30] VITALS: BP 142/62; PULSE 51; RESP 16; TEMP 36.2; O2SAT 94
[2024-07-11] MEDS: Aspirin Enteric Coated 81 MG TABLET.DR PO (07:57)
[2024-07-11] MEDS: amLODIPine Besylate 10 MG TABLET PO (07:57)
[2024-07-11] MEDS: Dicyclomine HCl 10 MG CAPSULE 20 MG PO (07:57)
[2024-07-11] MEDS: traMADoL HCL 50 MG TABLET PO (07:57)
[2024-07-11] MEDS: NaPROXEN 500 MG TABLET PO (07:57)
[2024-07-11] MEDS: Furosemide 20 MG TABLET PO (07:57)
[2024-07-11] MEDS: Finasteride 5 MG TABLET PO (07:58)
[2024-07-11 08:13] VITALS: BP 161/91; PULSE 64; RESP 17; TEMP 36.4; O2SAT 98
[2024-07-11] MEDS: atenoloL 25 MG TABLET PO (09:30)
--- NOTE | 2024-07-11 10:41 | MHC.CM.ED ---
Pt has been accepted to [place] [facility] for an 11 am transport time via [employer] Pt and son aware and in agreement with plan. ED care team aware of d/c
[2024-07-11 11:22] VITALS: BP 142/65; PULSE 75; RESP 16; TEMP 36.6; O2SAT 98
== END 2024-07-11 11:23 ==
PROVIDERS: Physician Assistant; Emergency Provider Emergency Medicine; PCP Internal Medicine
DX: M25.512 Pain in left shoulder (principal); M46.92 Unspecified inflammatory spondylopathy, cervical region; I10 Essential (primary) hypertension; Z91.81 History of falling; Z79.899 Other long term (current) drug therapy
CPT/HCPCS: 36415; 70450; 72125; 73030; 80053; 81001; 83880; 84484; 85025; 87635; 93005; 97161; 99285

== ENCOUNTER → 2024-07-09 20:20 | Outpatient (BNV) | payer MEDICARE, SELFPAY | PROVIDERS: Emergency Provider Emergency Medicine; PCP Internal Medicine; Visit Provider Internal Medicine | DX: R00.1 Bradycardia, unspecified (principal) | CPT/HCPCS: 93010 ==

== ENCOUNTER 2024-08-05 08:41 | Outpatient (AMB) | payer MEDICARE, SELFPAY ==
[2024-08-05 08:43] VITALS: BP 110/54; PULSE 64; O2SAT 96; BMI 24.3
--- NOTE | 2024-08-05 08:43 | A.OFFPC_ITS ---
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 Allergies No Known Allergies Allergy (Verified 08/05/24 08:48) Medication List - Last Reconciled 08/10/24 by Freddy Johnston MD amlodipine 10 mg PO DAILY aspirin 81 mg PO DAILY atenolol 25 mg PO DAILY diclofenac sodium 1% (Voltaren Arthritis Pain) 4 grams topical QID dicyclomine 20 mg PO QID finasteride 5 mg PO DAILY 90 days furosemide 20 mg PO DAILY meclizine 25 mg PO QID PRN naproxen 500 mg PO BID polyethylene glycol 3350 (Miralax) 17 grams PO DAILY PRN tizanidine 4 mg PO Q8H PRN tramadol 50 mg PO Q8H PRN Tobacco use date assessed: 07/07/24 Fall risk assessment: No Falls in past year Last assessed Fall Risk: 08/05/24 Dental Screening Dental Screen Date: 10/24/23 HPI Rehab 08/03 fall-Med Management HPI Details HTN on Rx; doing well and compliant on [facility] Medical History (Updated 07/12/24 @ 00:00 by Rasheed Boss) Hypertension Vertigo Obesity Surgical History H/O colonoscopy History of carpal tunnel surgery History of lumbar laminectomy Family History Father No problems noted. Mother No problems noted. Daughter Mental health disorder Social History Housing: House Alcohol intake: current Alcohol intake frequency: holidays/special occasions only Alcohol type: beer Patient Tobacco Use Status: Current someday Tobacco user e-Cigarette/Vaping Use: Never Used Second Hand Smoke Exposure: No Substance Use Type: Marijuana service: No Current occupational status: retired Cognitive needs: No Hearing needs: No Vision needs: Yes (glasses) Questionnaire Thrive Questionnaire Date Thrive assessed: 10/24/23 AUDIT C Alcohol Use Questionnaire (AUDIT-C) 1. How often do you have a drink containing alcohol?: Monthly or less 2. How many drinks containing alcohol do you have on a typical day when you are drinking?: 3 or 4 3. How often do you have six or more drinks on one occasion?: Never Total Score: 2 Score Reviewed/Action Taken: Yes HANSEL-7 AMB Questionnaire HANSEL-7 Date HANSEL - 7 assessed: 10/24/23 Source: Developed by Drs. Joe Gonzalez, Lauren Basurto, Raj Pugh and colleagues, with an educational ferdinand from [employer]. Review of Systems Const Denies chills, Denies headache(s) and Denies weight loss ENT Denies headache(s) Card Denies chest pain, Denies syncope, Denies irregular heart rhythm and Denies dyspnea Resp Denies chest congestion, Denies cough and Denies dyspnea GI Denies abdominal pain, Denies change in stool character, Denies nausea and Denies vomiting Musc Denies deformity and Denies joint swelling Neuro Denies syncope and Denies headache(s) Physical exam (Primary Care) Vital Signs: Last Vital Signs Pulse 64 08/05/24 08:43 BP 110/54 L 08/05/24 08:43 Pulse Ox 96 08/05/24 08:43 Oxygen Delivery Method Room Air 08/05/24 08:43 BMI result Body Mass Index 24.3 Tobacco/Smoking Status: Tobacco use Status Tobacco use date assessed 07/07/24 08/05/24 08:44 Patient Tobacco Use Status Current someday Tobacco 08/05/24 08:44 e-Cigarette/Vaping Use Never Used 08/05/24 08:44 Thrive Assessment: Date of Thrive Assessment Date Thrive assessed 10/24/23 08/05/24 08:44 Const General: cooperative, comfortable, no acute distress and alert Neck Neck: Yes no lymphadenopathy Thyroid: Thyroid normal Resp Effort & Inspection: normal respiratory effort Auscultation: clear to auscultation bilaterally Percussion: percussion normal Cardio Jugular venous distension: no JVD Palpation: normal PMI Rate: regular rate Rhythm: regular rhythm Heart sounds: S1 normal heart sound present and S2 normal heart sound present GI Inspection: Yes normal to inspection Palpation (GI): No hepatosplenomegaly present Skin General skin exam: no rashes or lesions noted Extrem General: Yes no clubbing, cyanosis or edema Coding Level of Care Code Est Pt Level 3 (59975) Diagnoses Hypertension I10 Assessment & Plan Assessment & Plan (1) Hypertension: Code(s): I10 - Essential (primary) hypertension Category: Medical Plan: stable; same rx Medications: New diclofenac sodium 1% (Voltaren Arthritis Pain) apply to single knee, ankle, foot; for foot includes sole/toes/top of foot 4 grams topical QID 100 grams 4RF Refilled 2 tramadol 50 mg PO Q8H PRN 30 tabs 0RF pain
== END 2024-08-05 09:24 | disposition home or self-care (01) ==
PROVIDERS: PCP Internal Medicine; Visit Provider Internal Medicine
DX: I10 Essential (primary) hypertension (principal)

== ENCOUNTER → 2024-08-05 08:41 | Outpatient (BNVA) | payer MEDICARE, SELFPAY | PROVIDERS: PCP Internal Medicine; Visit Provider Internal Medicine | DX: I10 Essential (primary) hypertension (principal) | CPT/HCPCS: 99212 ==

== ENCOUNTER 2024-08-17 13:05 | Outpatient (AMB) | payer MEDICARE, SELFPAY ==
[2024-08-17 13:14] VITALS: BMI 24.3
--- NOTE | 2024-08-17 13:14 | MHC.OFFVIS ---
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 Patient had an EMG done on 07/28/2020 and 03/26/2024. He was last seen in office w/ Dr Bhatia on 12/19/2020 had a left carpal tunnel release done on 10/11/20 and had a right carpal tunnel release on 12/08/2020. Patient reports after these two procedures his numbness and tingling had resolved. Over the few years he has noticed the more he uses his hands his CTS symptoms return. He has numbness and tingling in all his bilateral digits. Some days he has higher pain than other days. He expresses difficulty with any lifting. 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 Of note, the patient is also status post bilateral carpal tunnel releases in [address] Bhatia. The patient states that it ?felt like I was in high school? after his carpal tunnel releases initially, but he noticed that his numbness tingling and pain gradually returned with use of his bilateral hands. Today, the patient reports that his numbness and tingling is constant, daily, and worse at night. The patient states that he feels that this is not a recurrence of carpal tunnel syndrome, but states that he feels the symptoms are the same from prior to surgery. The patient also states that he feels he has diminished strength in his bilateral hands, and due to this has diminished lifting capacity. No other acute complaints or concerns at this time. [facility], [facility] Medical History (Updated 08/17/24 @ 14:20 by NOEL Pepe) Hypertension Vertigo Obesity Surgical History H/O colonoscopy History of carpal tunnel surgery History of lumbar laminectomy Family History Father No problems noted. Mother No problems noted. Daughter Mental health disorder Social History Housing: House Alcohol intake: current Alcohol intake frequency: holidays/special occasions only Alcohol type: beer Patient Tobacco Use Status: Current someday Tobacco user e-Cigarette/Vaping Use: Never Used Second Hand Smoke Exposure: No Substance Use Type: Marijuana service: No Current occupational status: retired Cognitive needs: No Hearing needs: No Vision needs: Yes (glasses) Review of Systems Const All systems reviewed & are unremarkable except as noted in HPI and below Physical Exam Vital Signs: BMI result Body Mass Index 24.3 Extrem Other: Neuro: Decreased sensation in the median nerve distribution of bilateral hands in the office today. Normal sensation in the ulnar nerve distribution of bilateral hands today No thenar or intrinsic wasting. Good APB muscle firing and good finger cross. Vascular: Capillary refill brisk. ROM: Patient can make a fist and extend all their digits. Skin: No lacerations or abrasions noted. General: No ecchymosis. No erythema or evidence of infection. Assessment & Plan Assessment & Plan (1) Weakness of both hands: Code(s): R29.898 - Other symptoms and signs involving the musculoskeletal system Category: Medical (2) Numbness and tingling in both hands: Code(s): R20.0 - Anesthesia of skin; R20.2 - Paresthesia of skin Category: Medical Plan 1. Numbness and tingling of bilateral hands Status post carpal tunnel releases in 2020 Patient is educated about this condition Patient is educated about the typical recovery course At this time, patient was informed that IM unable to determine if his numbness and tingling is recurrence of carpal tunnel syndrome, or continuation of his previous symptoms, as he was experiencing dense numbness prior to surgery in 2020 However, I did feel it was warranted to order a repeat EMG and nerve conduction study to assess the health of the nerves of bilateral upper extremities Patient was amenable to this plan 2. Diminished strength of bilateral hands Patient was referred to occupational therapy for range of motion and strengthening of bilateral hands in the setting of diminished strength Patient was amenable to this plan Patient will follow-up after EMG and nerve conduction study for results review and discussion of further treatment options if indicated, sooner with any acute concerns Orders: Orders OT Evaluation and Treatment Today R29.898 - Other symptoms and signs involving the musculoskeletal system NE electromyogram (EMG) Today R20.0 - Anesthesia of skin, R20.2 - Paresthesia of skin NE nerve conduction velocity Today R20.0 - Anesthesia of skin, R20.2 - Paresthesia of skin Coding Level of Care Code New Pt Level 3 (78903) Diagnoses Weakness of both hands R29.898 Numbness and tingling in both hands R20.0; R20.2
== END 2024-08-17 13:47 | disposition home or self-care (01) ==
PROVIDERS: PCP Internal Medicine
DX: R29.898 Other symptoms and signs involving the musculoskeletal system (principal); R20.0 Anesthesia of skin; R20.2 Paresthesia of skin
CPT/HCPCS: 99203

== ENCOUNTER → 2024-08-17 13:05 | Outpatient (BNVA) | payer MEDICARE, SELFPAY | PROVIDERS: PCP Internal Medicine | DX: R20.0 Anesthesia of skin (principal); R20.2 Paresthesia of skin; R29.898 Other symptoms and signs involving the musculoskeletal system | CPT/HCPCS: 99202 ==

== ENCOUNTER 2024-09-17 09:24 | Outpatient (AMB) | payer MEDICARE, SELFPAY ==
[2024-09-17 09:33] VITALS: BP 130/62; PULSE 78; O2SAT 98; BMI 26.9
--- NOTE | 2024-09-17 09:33 | A.OFFPC_ITS ---
Vital Signs 09/17/24 09:33 Height 6 ft Weight 198 lb 6.656 oz BMI 26.9 BP 130/62 Blood Pressure Location Lt brachial Position Sitting Pulse 78 Pulse Source Pulse Oximeter Pulse Oximetry (%) 98 Oxygen Delivery Method Room Air Intake Visit Reasons: Hernia Allergies No Known Allergies Allergy (Verified 09/17/24 09:33) Medication List - Last Reconciled 09/18/24 by Freddy Johnston MD amlodipine 10 mg PO DAILY aspirin 81 mg PO DAILY atenolol 25 mg PO DAILY diclofenac sodium 1% (Voltaren Arthritis Pain) 4 grams topical QID dicyclomine 20 mg PO QID finasteride 5 mg PO DAILY 90 days furosemide 20 mg PO DAILY meclizine 25 mg PO QID PRN naproxen 500 mg PO BID polyethylene glycol 3350 (Miralax) 17 grams PO DAILY PRN tizanidine 4 mg PO Q8H PRN tramadol 50 mg PO Q8H PRN Tobacco use date assessed: 09/17/24 Fall risk assessment: No Falls in past year Last assessed Fall Risk: 09/17/24 Dental Screening Dental Screen Date: 09/17/24 Did you have a dental visit in the last 12 months?: Yes Did you have a dental problem in the last 6 months where you did not have access to dental care?: No Was dental information given to patient?: Patient has dentist HPI Hernia HPI Details has some cognitive decline and family wants him to see a memory specialist [facility] Medical History (Updated 09/18/24 @ 12:21 by Freddy Johnston MD) Hypertension Vertigo Obesity Surgical History H/O colonoscopy History of carpal tunnel surgery History of lumbar laminectomy Family History Father No problems noted. Mother No problems noted. Daughter Mental health disorder Social History Housing: House Alcohol intake: current Alcohol intake frequency: holidays/special occasions only Alcohol type: beer Patient Tobacco Use Status: Current someday Tobacco user Tobacco use type: Cigarette e-Cigarette/Vaping Use: Never Used Second Hand Smoke Exposure: Yes Substance Use Type: Marijuana service: No Current occupational status: retired Cognitive needs: No Hearing needs: No Vision needs: Yes (glasses) Questionnaire PHQ-9 Over the last 2 weeks, how often have you been bothered by any of the following problems? 1. Little interest or pleasure in doing things: not at all 2. Feeling down, depressed, or hopeless: not at all 3. Trouble falling or staying asleep, or sleeping too much: not at all 4. Feeling tired or having little energy: not at all 5. Poor appetite or overeating: not at all 6. Feeling bad about yourself - or that you are a failure or have let yourself or your family down: not at all 7. Trouble concentrating on things, such as reading the newspaper or watching television: not at all 8. Moving or speaking so slowly that other people could have noticed. Or the opposite - being so fidgety or restless that you have been moving around a lot more than usual: not at all 9. Thoughts that you would be better off or of hurting yourself in some way: not at all Total score: 0 Depression Screening Interpretation: Negative Depression Screening Done: Yes Source: Developed by Drs. Joe Gonzalez, Lauren Basurto, Raj Pugh and colleagues, with an educational ferdinand from [employer]. Thrive Questionnaire Date Thrive assessed: 09/17/24 I am a: Patient What is your living situation today?: I have a steady place to live Within the past 12 months, did the food you bought not last and you didn't have the money to get more?: Never true Within the past 12 months, did you worry whether your food would run out before you got money to buy more?: Never true Do you have trouble paying for medicines?: No Do you have trouble getting transportation to medical appointments?: No Do you have trouble paying your heating and electricity bill?: No Do you have trouble taking care of your child, family member or friend?: No Do you have trouble with day-to-day activities such as bathing, preparing meals, shopping, managing finances, etc.?: No Are you currently unemployed and looking for a job?: No Are you interested in more education?: No Currently or been in a relationship where the following occur: No concerns reported THRIVE Score: 0 AUDIT C Alcohol Use Questionnaire (AUDIT-C) 1. How often do you have a drink containing alcohol?: Monthly or less 2. How many drinks containing alcohol do you have on a typical day when you are drinking?: 3 or 4 3. How often do you have six or more drinks on one occasion?: Never Total Score: 2 Score Reviewed/Action Taken: Yes HANSEL-7 AMB Questionnaire HANSEL-7 Date HANSEL - 7 assessed: 09/17/24 Feeling nervous, anxious, or on edge: 0 = Not at all Not being able to stop or control worryin = Not at all Worrying too much about different things: 0 = Not at all Trouble relaxin = Not at all Being so restless that it is hard to sit still: 0 = Not at all Becoming easily annoyed or irritable: 0 = Not at all Feeling afraid as if something awful might happen: 0 = Not at all Total HANSEL-7 score (0-4 normal; 5-9 mild; 10-14 moderate; 15-21 severe): 0 Source: Developed by Drs. Joe Gonzalez, Lauren Basurto, Raj Pugh and colleagues, with an educational ferdinand from [employer]. Review of Systems Const Denies chills, Denies headache(s) and Denies weight loss ENT Denies headache(s) Card Denies chest pain, Denies syncope, Denies irregular heart rhythm and Denies dyspnea Resp Denies chest congestion, Denies cough and Denies dyspnea GI Denies abdominal pain, Denies change in stool character, Denies nausea and Denies vomiting Musc Denies deformity and Denies joint swelling Neuro Denies syncope and Denies headache(s) Physical exam (Primary Care) Vital Signs: Last Vital Signs Pulse 78 09/17/24 09:33 BP 130/62 09/17/24 09:33 Pulse Ox 98 09/17/24 09:33 Oxygen Delivery Method Room Air 09/17/24 09:33 BMI result Body Mass Index 26.9 Tobacco/Smoking Status: Tobacco use Status Tobacco use date assessed 09/17/24 09/17/24 09:41 Patient Tobacco Use Status Current someday Tobacco 09/17/24 09:41 Tobacco use type Cigarette 09/17/24 09:41 e-Cigarette/Vaping Use Never Used 09/17/24 09:41 PHQ-9: PHQ-9 Score PHQ-9: Total score 0 09/17/24 09:41 Depression Screening Interpretation: Negative Thrive Assessment: Date of Thrive Assessment Date Thrive assessed 09/17/24 09/17/24 09:41 Currently or been in a relationship where the following occur: No concerns reported Const General: cooperative, comfortable, no acute distress and alert Neck Neck: Yes no lymphadenopathy Thyroid: Thyroid normal Resp Effort & Inspection: normal respiratory effort Auscultation: clear to auscultation bilaterally Percussion: percussion normal Cardio Jugular venous distension: no JVD Palpation: normal PMI Rate: regular rate Rhythm: regular rhythm Heart sounds: S1 normal heart sound present and S2 normal heart sound present GI Inspection: Yes normal to inspection Palpation (GI): No hepatosplenomegaly present Skin General skin exam: no rashes or lesions noted Extrem General: Yes no clubbing, cyanosis or edema Coding Level of Care Code Est Pt Level 3 (85156) Diagnoses Memory loss R41.3 Assessment & Plan Assessment & Plan (1) Memory loss: Code(s): R41.3 - Other amnesia Plan: labs, ct and referral Orders: Orders Erythrocyte Sedimentation Rate Today R41.3 - Other amnesia CT head/brain wo IV con Today R41.3 - Other amnesia Vitamin B12 Today R41.3 - Other amnesia Referrals Neurology Referral R41.3 - Other amnesia
== END 2024-09-17 10:02 | disposition home or self-care (01) ==
PROVIDERS: PCP Internal Medicine; Visit Provider Internal Medicine
DX: R41.3 Other amnesia (principal)

== ENCOUNTER → 2024-09-17 09:24 | Outpatient (BNVA) | payer MEDICARE, SELFPAY | PROVIDERS: PCP Internal Medicine; Visit Provider Internal Medicine | DX: R41.3 Other amnesia (principal) | CPT/HCPCS: 99212 ==

== ENCOUNTER 2024-09-23 12:36 | Outpatient (REF) | payer MEDICARE, SELFPAY ==
--- NOTE | 2024-09-23 12:46 | EMG_ITS ---
Chief complaint: Bilateral Carpal Tunnel Syndrome surgeries in 2020. Symptoms returned 5 months after. Continues to have hand and numbness and pain bilateral. Reports feeling weaker on the hands this year. Denies neck pain. Reports feeling weaker on the hands this year. EMG done by Dr. Lyman in 2019 reviewed, showed right moderate and left mild Carpal Tunnel Syndrome. EMG done by sc 03/26/2024 showed right moderate-severe Carpal Tunnel Syndrome, left mild Carpal Tunnel Syndrome, bilateral chronic ulnar neuropathy. Reason for referral: Evaluate for hand numbness and weakness Referred by: Hector COHEN Procedure done: Bilateral upper extremities NCS/EMG Precautions and/or limitations: None The limb temperature was monitored continuously and remained between 32-36 degrees C during the performance of the NCS. Ulnar motor NCS was performed with moderate elbow flexion between 70-90 degrees, with across-elbow distance of 10 cm. Nerve Conduction Studies Anti Sensory Summary Table ?Stim Site NR Onset (ms) Norm Onset (ms) Peak (ms) Norm Peak (ms) O-P Amp (?V) Norm O-P Amp Site1 Site2 Delta-0 (ms) Dist (cm) Medhat (m/s) Norm Medhat (m/s) Left Median Anti Sensory (2nd Digit) Wrist ? 3.1 3.9 <3.6 8.8 >10 Wrist 2nd Digit 3.1 14.0 45 Right Median Anti Sensory (2nd Digit) Wrist ? 3.3 4.1 <3.6 4.2 >10 Wrist 2nd Digit 3.3 14.0 42 Right Radial Anti Sensory (Thumb) Forearm ? 0.9 2.3 <3.1 10.1 Forearm Thumb 0.9 0.0 Left Ulnar Anti Sensory (5th Digit) Wrist ? 2.5 3.4 <3.7 6.5 >15.0 Wrist 5th Digit 2.5 14.0 56 Right Ulnar Anti Sensory (5th Digit) Wrist NR <3.7 >15.0 Wrist 5th Digit 14.0 Motor Summary Table ?Stim Site NR Onset (ms) Norm Onset (ms) O-P Amp (mV) Norm O-P Amp iAmp (mV) Amp (1st) (%) Site1 Site2 Delta-0 (ms) Dist (cm) Medhat (m/s) Norm Medhat (m/s) Left Median Motor (Abd Poll Brev) Wrist ? 3.7 <3.9 9.7 >4.5 11.4 100.0 Elbow Wrist 4.5 23.0 51 >45 Elbow ? 8.2 6.9 8.5 71.1 Right Median Motor (Abd Poll Brev) Wrist ? 4.9 <3.9 4.4 >4.5 5.5 100.0 Elbow Wrist 4.6 22.0 48 >45 Elbow ? 9.5 4.0 4.9 90.9 Left Ulnar Motor (Abd Dig Minimi) Wrist ? 3.5 <3.0 5.4 >5 6.1 100.0 B Elbow Wrist 4.2 22.0 52 >45 B Elbow ? 7.7 4.7 5.4 87.0 A Elbow B Elbow 1.4 10.0 71 >45 A Elbow ? 9.1 4.4 5.1 81.5 Right Ulnar Motor (Abd Dig Minimi) Wrist ? 3.2 <3.0 8.2 >5 9.4 100.0 B Elbow Wrist 4.5 23.0 51 >45 B Elbow ? 7.7 7.0 8.2 85.4 A Elbow B Elbow 1.5 10.0 67 >45 A Elbow ? 9.2 6.7 7.9 81.7 EMG ?Side Muscle Nerve Root Ins Act Fibs Psw Amp Dur Poly Recrt Int Pat Comment Left 1stDorInt Ulnar C8-T1 Nml Nml Nml Nml Nml 0 Nml Complete Left FlexCarRad Median C6-7 Nml Nml Nml Nml Nml 0 Nml Complete Left Biceps Musculocut C5-6 Nml Nml Nml Nml Nml 0 Nml Complete Left Triceps Radial C6-7-8 Nml Nml Nml Nml Nml 0 Nml Complete Left Deltoid Axillary C5-6 Nml Nml Nml Nml Nml 0 Nml Complete FINDINGS: Right median motor nerve showed prolonged distal latency, small amplitude and normal conduction velocity. Right median sensory nerve showed prolonged peak latency and small amplitude. Left median sensory nerve showed prolonged peak latency and small amplitude. Right ulnar motor nerve prolonged distal latency, normal amplitude and normal conduction velocity. Right ulnar sensory nerve absent response. Left ulnar motor nerve showed prolonged distal latency, normal amplitude and normal conduction velocity. Left ulnar sensory nerve showed small amplitude. All other nerves tested were within normal. Concentric needle EMG was performed in selected muscles of the left upper extremity. Study did not reveal signs of electric abnormalities as shown in the table above. Patient has poor tolerance of needle EMG. Denies associated neck pain to the hand numbness. Low suspicion that needle EMG would change from previous 2023. IMPRESSION: 1. This is an abnormal study and the same results from 03/26/24. 2. There is electrodiagnostic evidence for right moderate-severe and left mild median neuropathy at the wrist, consistent with Carpal Tunnel Syndrome, despite surgeries done in 2020. 3. There is electrodiagnostic evidence for bilateral ulnar neuropathy, appearing chronic, therefore poorly localizable but suspect at the elbow. 4. There is no electrodiagnostic evidence for brachial plexopathy or cervical radiculopathy. Thank you for your kind referral. Lorin Evans MD, ELISABETH Board Certified, [place] [employer] and [employer] (ABPMR) Board Certified, [place] [employer] Electro[employer] (ABEM) CODIN [phone] x 2 MTDD
== END 2024-09-23 12:37 | disposition home or self-care (01) ==
LOC: HO.NEURO 12:36
PROVIDERS: PCP Internal Medicine
DX: R20.0 Anesthesia of skin (principal); R20.2 Paresthesia of skin
CPT/HCPCS: 95886; 95911

== ENCOUNTER → 2024-09-23 12:46 | Outpatient (BNV) | payer MEDICARE, SELFPAY | PROVIDERS: PCP Internal Medicine; Visit Provider Physical Medicine & Rehabilitation | DX: G56.03 Carpal tunnel syndrome, bilateral upper limbs (principal); G56.23 Lesion of ulnar nerve, bilateral upper limbs | CPT/HCPCS: 95886; 95911 ==

== ENCOUNTER 2024-09-23 13:57 | Emergency (ER) | payer MEDICARE, SELFPAY ==
--- NOTE | ~2024-09-23 | XR_ITS ---
EXAMINATION: XR ABDOMEN KUB CLINICAL INDICATION: pain COMPARISON: None available. TECHNIQUE: AP view of the abdomen. FINDINGS: Abundant stool within the right hemicolon and rectosigmoid colon. No air-fluid levels. No gross intestinal distention. S-shaped curvature of the thoracolumbar spine with multilevel marginal osteophyte formation and endplate sclerosis with decreased intervertebral disc height in the lower lumbar spine. There is an intraspinal canal stimulator electrode entering at T8-9 level and ending the C6-7 level. The reservoir or left the left hemiabdomen/iliac bone. Vascular calcifications.. XR/XR KUB IMPRESSION: No intestinal obstruction pattern. Thoracolumbar spondylosis. Osteopenia versus osteoporosis. Atherosclerosis disease. Electronically signed by: Mehdi Goins MD 09/23/2024 02:57 PM [facility]
[2024-09-23 14:27] VITALS: BP 155/79; PULSE 57; RESP 18; TEMP 36.6; O2SAT 96; BMI 26.4
--- NOTE | 2024-09-23 14:27 | ED_ITS ---
HPI - General Adult General Chief complaint: Abdominal Pain Stated complaint: Constipation Time Seen by Provider: 09/23/24 18:00 Source: patient Limitations: no limitations History of Present Illness ED Provider: Kendy Mccullough PA-C HPI narrative: 78-year-old male with a history of constipation presents with constipation x 1 week. Denies abdominal distention, pain, nausea vomiting or inability to pass flatus. Related Data Home Medications ?Medication ?Instructions ?Recorded ?Confirmed polyethylene glycol 3350 17 17 g PO DAILY PRN Constipation 05/08/23 09/18/24 gram/dose oral powder (Miralax) aspirin 81 mg capsule 81 mg PO DAILY 12/18/23 09/18/24 Previous Rx's ?Medication ?Instructions ?Recorded furosemide 20 mg tablet 20 mg PO DAILY #90 tabs 11/17/23 tizanidine 4 mg tablet 4 mg PO Q8H PRN muscle spasticity 06/15/24 #60 tabs atenolol 25 mg tablet 25 mg PO DAILY #90 tabs 06/22/24 dicyclomine 20 mg tablet 20 mg PO QID #30 tabs 07/06/24 finasteride 5 mg tablet 5 mg PO DAILY 90 days #90 tabs 07/07/24 meclizine 25 mg tablet 25 mg PO QID PRN dizziness #30 tabs 07/07/24 diclofenac sodium 1 % topical gel 4 g topical QID #100 grams 08/05/24 (Voltaren Arthritis Pain) tramadol 50 mg tablet 50 mg PO Q8H PRN pain #30 tabs 08/05/24 naproxen 500 mg tablet 500 mg PO BID #60 tabs 09/14/24 amlodipine 10 mg tablet 10 mg PO DAILY #90 tabs 09/15/24 Allergies Allergy/AdvReac Type Severity Reaction Status Date / Time No Known Allergies Allergy Verified 09/23/24 14:29 Review of Systems 2 Review of Systems: Yes all other systems are reviewed and are negative Constitutional: Constitutional: Denies fatigue and Denies fever(s) Cardiovascular: Cardiovascular: Denies chest pain and Denies dyspnea Respiratory: Respiratory: Denies cough and Denies dyspnea Gastrointestinal: Gastrointestinal: Reports abdominal pain, Reports constipation, Denies nausea and Denies vomiting Endocrine: Endocrine: Denies fatigue PMFSH Past Medical History Attestation statement: The following information was validated with the patient. Medical History (Updated 09/23/24 @ 18:29 by NOEL Hope) Hypertension Vertigo Obesity Surgical History H/O colonoscopy History of carpal tunnel surgery History of lumbar laminectomy Family History Family History Father No problems noted. Mother No problems noted. Daughter Mental health disorder Social History Social History Housing: House Alcohol intake: current Alcohol intake frequency: holidays/special occasions only Alcohol type: beer Patient Tobacco Use Status: Current someday Tobacco user Tobacco use type: Cigarette e-Cigarette/Vaping Use: Never Used Second Hand Smoke Exposure: Yes Substance Use Type: Marijuana Advance Directives: No Advance Directives Information Provided: No Do you have a plan to hurt others: No Plan service: No Current occupational status: retired Cognitive needs: No Hearing needs: No Vision needs: Yes (glasses) Physical Exam ED Vital Signs: Vital Signs - 24 hr 09/23/24 14:27 Temperature 97.9 F Pulse Rate 57 Respiratory Rate 18 Blood Pressure 155/79 H Pulse Oximetry 96 Oxygen Delivery Method Room Air BMI result Body Mass Index 26.4 Const Other: Alert well-appearing Orientation/consciousness: patient oriented x3 Resp Effort & Inspection: normal respiratory effort Cardio Other: Normal peripheral perfusion GI Other: Soft nondistended nontender Skin Other: Warm dry no rash Neuro General: patient oriented x3, no focal motor deficits and CN's II-XI intact bilaterally Psych Other: Calm cooperative Course Course Course Narrative: RME, this is a rapid medical exam performed by Dejan Ordoñez please refer to primary provider for complete H&P- 78 year old male presents for evaluation of constipation. He reports his last bowel movement was over a week ago. He has nausea without vomiting. He is still passing gas. Plan for labs, UA, and KUB Medical Decision Making Medical Decision Making MDM Narrative: 78-year-old male with a history of constipation presents with constipation x 1 week. Denies abdominal distention, pain, nausea vomiting or inability to pass flatus. Problem: Constipation History: Per patient I have considered the following differential diagnoses: Obstipation, constipation, bowel obstruction, fecal impaction Plan: Screening labs and KUB were obtained from triage, labs are unremarkable, he does not have symptoms of obstruction, no obstructive pattern noted on the KUB. Also no fecal impaction. We will send with home care instructions. I have independently reviewed the following tests: Labs: No leukocytosis, not anemic, no electrolyte abnormality KUB Abundant stool within the right hemicolon and rectosigmoid colon. No air-fluid levels. No gross intestinal distention. S-shaped curvature of the thoracolumbar spine with multilevel marginal osteophyte formation and endplate sclerosis with decreased intervertebral disc height in the lower lumbar spine. There is an intraspinal canal stimulator electrode entering at T8-9 level and ending the C6-7 level. The reservoir or left the left hemiabdomen/iliac bone. Vascular calcifications.. XR/XR KUB IMPRESSION: No intestinal obstruction pattern. Thoracolumbar spondylosis. Osteopenia versus osteoporosis. Atherosclerosis disease. Electronically signed by: Mehdi Goins MD 09/23/2024 02:57 PM [facility] [place] Data 09/23/24 16:12 09/23/24 16:12 Labs: Lab Results 09/23/24 Range/Units 16:12 WBC 7.8 (4.8-10.8) X10*3/uL RBC 4.21 L (4.60-5.80) X10*6/uL Hgb 13.8 L (14.0-18.0) g/dl Hct 40.4 L (42.0-52.0) % MCV 96.0 (80.0-98.0) fL MCH 32.8 (27.0-33.0) pg MCHC 34.2 (31.0-36.0) g/dl RDW 13.7 (11.0-16.0) % Plt Count 133 L (160-400) X10*3/uL MPV 11.5 (9.4-12.4) fL Immature Gran % (Auto) 0.3 (0.0-0.4) % Neut % (Auto) 56.7 (45-73) % Lymph % (Auto) 27.7 (20-40) % [place] % (Auto) 12.6 H (2-11) % Eos % (Auto) 2.3 (0-4) % Baso % (Auto) 0.4 (0-2) % Lymph # (Auto) 2.2 (1.2-4.9) X10*3/uL [place] # (Auto) 1.0 (0.1-1.2) X10*3/uL Eos # (Auto) 0.2 (0.0-0.4) X10*3/uL Baso # (Auto) 0.0 (0.0-0.2) X10*3/uL Abs Immat Gran (auto) 0.02 (0.00-0.03) X10*3/uL Absolute Neuts (auto) 4.5 (2.0-8.3) x10*3/uL Absolute Nucleated RBC 0.000 (0.0-0.012) X10*3/uL Nucleated RBC % (auto) 0.0 (0.0-0.2) /100WBC Smear Tech's Comments VERIFIED Sodium 140 (135-145) mmol/L Potassium 4.3 (3.3-5.1) mmol/L Chloride 107 (96-108) mmol/L Carbon Dioxide 23 (22-29) mmol/L Anion Gap 14 (12-20) BUN 26 H (9-16) mg/dL Creatinine 0.96 (0.5-1.4) mg/dL Estim Creat Clear Calc 69.6 Estimated GFR > 60 Random Glucose 93 (60-115) mg/dL Calcium 9.5 (8.4-10.2) mg/dL Total Bilirubin 0.8 (0.0-1.0) mg/dL AST 25 (5-37) U/L ALT 15 (0-40) U/L Alkaline Phosphatase 81 (39-117) U/L Total Protein 7.4 (6.5-8.0) g/dL Albumin 4.1 (3.5-5.0) g/dL Lipase 23 (8-78) U/L Discharge Plan Discharge Clinical Impression: Constipation Patient Disposition: Home, Self-Care Instructions: Constipation (ED) Additional Instructions: All of your labs were normal, the x-ray revealed a your constipated. See home care instructions. You need to use a stool softener such as Colace, twice a day. In addition you need to use MiraLax, 3 times a day, until you begin having normal large volume bowel movements. Both of these medications can be purchased [id number]. Follow up with your primary care provider as needed Prescriptions: No Action furosemide 20 mg tablet 20 mg PO DAILY Qty: 90 8RF tizanidine 4 mg tablet 4 mg PO Q8H PRN (Reason: muscle spasticity) Qty: 60 4RF atenolol 25 mg tablet 25 mg PO DAILY Qty: 90 0RF dicyclomine 20 mg tablet 20 mg PO QID Qty: 30 4RF naproxen 500 mg tablet 500 mg PO BID Qty: 60 2RF amlodipine 10 mg tablet 10 mg PO DAILY Qty: 90 0RF aspirin 81 mg capsule 81 mg PO DAILY polyethylene glycol 3350 [Miralax] 17 gram/dose powder 17 g PO DAILY PRN (Reason: Constipation) tramadol 50 mg tablet 50 mg PO Q8H PRN (Reason: pain) Qty: 30 0RF diclofenac sodium [Voltaren Arthritis Pain] 1 % gel 4 g topical QID Qty: 100 4RF Rx Instructions: apply to single knee, ankle, foot; for foot includes sole/toes/top of foot finasteride 5 mg tablet 5 mg PO DAILY 90 Days Qty: 90 2RF meclizine 25 mg tablet 25 mg PO QID PRN (Reason: dizziness) Qty: 30 2RF Print Language: Hebrew
[2024-09-23 16:28] LABS: Basophils Percent Auto 0.4 % (0-2); Hemoglobin 13.8 g/dl (14.0-18.0); Imm Gran Abs Auto 0.02 X10*3/uL (0.00-0.03); Imm Gran Pct Auto 0.3 % (0.0-0.4); MANUAL DIFF FLAG SCAN; Monocytes Percent Auto 12.6 % (2-11); PLT CLUMP 1; Red Cell Distribution Width 13.7 % (11.0-16.0); SCAN SMEAR FLAG 1
[2024-09-23 16:30] LABS: Eosinophils Absolute Auto 0.2 X10*3/uL (0.0-0.4); Eosinophils Percent Auto 2.3 % (0-4); Hematocrit 40.4 % (42.0-52.0); Lymphocytes Absolute Auto 2.2 X10*3/uL (1.2-4.9); Lymphocytes Percent Auto 27.7 % (20-40); Mean Corpuscular HGB Conc 34.2 g/dl (31.0-36.0); Mean Corpuscular Hemoglobin 32.8 pg (27.0-33.0); Mean Platelet Volume 11.5 fL (9.4-12.4); Neutrophils Absolute Auto 4.5 x10*3/uL (2.0-8.3); Neutrophils Percent Auto 56.7 % (45-73); Platelet Count 133 X10*3/uL (160-400); Red Blood Count 4.21 X10*6/uL (4.60-5.80); White Blood Count 7.8 X10*3/uL (4.8-10.8)
[2024-09-23 16:42] LABS: Alanine Aminotransferase 15 U/L (0-40); Albumin Level 4.1 g/dL (3.5-5.0); Anion Gap 14 (12-20); Aspartate Amino Transferase 25 U/L (5-37); Bilirubin Total 0.8 mg/dL (0.0-1.0); Blood Urea Nitrogen 26 mg/dL (9-16); Calcium 9.5 mg/dL (8.4-10.2); Carbon Dioxide 23 mmol/L (22-29); Chloride 107 mmol/L (96-108); Creatinine Clr Calc Pharmacy 69.6; Estimated Glomerular Filt Rate > 60; Glucose Random 93 mg/dL (60-115); Potassium 4.3 mmol/L (3.3-5.1); Sodium 140 mmol/L (135-145); Total Protein 7.4 g/dL (6.5-8.0)
[2024-09-23 16:47] LABS: Alkaline Phosphatase 81 U/L (39-117); Lipase 23 U/L (8-78)
[2024-09-23 16:54] LABS: SLIDE REVIEW VERIFIED
[2024-09-23 18:47] VITALS: BP 155/79; PULSE 57; RESP 18; TEMP 36.6; O2SAT 96
== END 2024-09-23 18:47 | disposition home or self-care (01) ==
PROVIDERS: Physician Assistant; Emergency Provider Emergency Medicine
DX: K59.00 Constipation, unspecified (principal); I10 Essential (primary) hypertension; R10.2 Pelvic and perineal pain; R42 Dizziness and giddiness; E66.9 Obesity, unspecified; F17.210 Nicotine dependence, cigarettes, uncomplicated; F12.90 Cannabis use, unspecified, uncomplicated; Z68.26 Body mass index [BMI] 26.0-26.9, adult; Z79.899 Other long term (current) drug therapy
CPT/HCPCS: 36415; 74018; 80053; 83690; 85025; 99283

== ENCOUNTER → 2024-09-23 14:28 | Outpatient (BNV) | payer MEDICARE, SELFPAY | PROVIDERS: Visit Provider Radiology Diagnostic Radiology | DX: R10.9 Unspecified abdominal pain (principal); K59.00 Constipation, unspecified | CPT/HCPCS: 74018 ==

== ENCOUNTER 2024-10-09 14:19 | Outpatient (AMB) | payer MEDICARE, SELFPAY ==
--- OUTSIDE RECORDS SUMMARY | 2024-10-09 14:22 | XMS_ITS | Encounter Summary ---
Author Organization [employer] Address [address] [facility] [address] [place] [address] Care Team Providers Care Environmental Solutions Engineer Name Role Phone Unavailable Primary Care Provider Unavailabl e Encounter Details Date Type Department Care Team (Latest Contact Info) Description 07/23/2019 Abstract [facility] CONVERSIONS Dental, Provider, DDS Social History Tobacco Use Types Packs/Day Years Used Date Smoking Tobacco: Never Assessed Sex and Gender Information Value Date Recorded Sex Assigned at Male 07/09/2022 10:23 AM EDT Legal Sex Male 10:23 AM EDT Gender Identity Male 07/09/2022 10:23 AM EDT Sexual Orientation Don't know 07/09/2022 10 :23 AM EDT documented as of this encounter Plan of Treatment Not on file documented as of this encounter Visit Diagnoses Not on filedocumented in this encounter
--- OUTSIDE RECORDS SUMMARY | 2024-10-09 14:22 | XMS_ITS | Encounter Summary ---
Author Organization [employer] Address [address] [facility] [address] [facility] [address] [place] [address] Care Team Providers Care Manager Service Desk Name Role Phone Unavailable Primary Care Provider Unavailabl e Reason for Visit * Reason Onset Date Comments Appointment 12/26/2022 Encounter Details Date Type Department Care Team (Late st Contact Info) Description 12/26/2022 Telephone [facility] [address] [place] [address] Yamilet Valdivia DDS Appointment Social History Tobacco Use Types Packs/Day Years Used Date Smoking Tobacco: Some Days Cigarettes Smokeless Tobacco: Never Sex and Gender Information Value Date Recorded Sex Assigned at Male 07/09/2022 10:23 AM EDT Legal Sex Male 10:23 AM EDT Gender Identity Male 07/09/2022 10:23 AM EDT Sexual Orientation Don't know 07/09/2022 10 :23 AM EDT COVID-19 Exposure Response Date Recorded In the last 10 days, have yo u been in contact with someone who was confirmed or suspected to have Coronavirus/COVID-19? No / Unsure 12/11/2022 8:01 AM EDT documented as of this encounter Miscellaneous Notes * Telephone Encounter - Berta Puga - 12/28/2022 1:34 PM EDT Thank you patient was informed and also confirmed his phone number and I already scheduled patient. * Telephone Encounter - Berta Puga - 12/26/2022 1:45 PM EDT Rene Abraham 1945 Patient called in and wanted to know if his dentures are in office please advise. documented in this encounter Plan of Treatment Not on file documented as of this encounter Visit Diagnoses Not on filedocumented in this encounter
--- OUTSIDE RECORDS SUMMARY | 2024-10-09 14:22 | XMS_ITS | Clinical Summary ---
Author Organization [employer] Address [address] [facility] [address] [place] [address] Care Team Providers Care Master Baker Name Role Phone Unavailable Primary Care Provider Unavailabl e Allergies No known active allergies Medications naproxen (Naprosyn) 500 MG tablet Take 500 mg by mouth 2 times daily. 2 Active finasteride (Proscar) 5 MG tablet 2 Active furosemide (Lasix) 20 MG tablet Take 20 mg by mouth in the morning. 2 Active atenolol (Tenormin) 25 MG tablet Take 25 mg by mouth in the morning. 2 Active amLODIPine (Norvasc) 10 MG tablet 2 Active cyclobenzaprine (Flexeril) 10 MG tablet Take 10 mg by mouth 3 times daily. 2 Active EQ Pain Reliever 500 MG tablet Take 500 mg by mouth every 6 (six) hours if needed. 4 Active amoxicillin (Amoxil) 500 MG capsule Please take 4 CAPS of 500 MG Amoxicillin 1 hour before the dental appointment. 4 capsule 4 Active Social History Tobacco Use Types Packs/Day Years Used Date Smoking Tobacco: Some Days Cigarettes Smokeless Tobacco: Never Tobacco Cessation:Ready to Q uit: Not Asked; Counseling Given: Not Answered Sex and Gender Information Value Date Recorded Sex Assigned at Male 07/09/2022 10:23 AM EDT Legal Sex Male 10:23 AM EDT Gender Identity Male 07/09/2022 10:23 AM EDT Sexual Orientation Don't know 07/09/2022 10 :23 AM EDT Last Filed Vital Signs Vital Sign Reading Time Taken Comments Blood Pressure 142/72 10/11/2023 8:07 AM EST Pulse 60 10/11/2023 8:07 AM EST Temperature - - Respiratory Rate - - Oxygen Saturation - - Inhaled Oxygen Concentration - - Weight - - Height - - Body Mass Index - - Plan of Treatment Health Maintenance Due Date Last Done Comments Dental X-Ray: Bitewings 1945 Dental X-Ray: Full Mouth 1945 Depression Screening 1945 Lipid Panel 1945 SDOH Screening 1945 Alcohol/Substance Use Screening 1957 Hepatitis C Screening 11/27/1963 Zoster Vaccines (1 of 2) 11/27/1995 Pneumococcal Vaccine: 50+ Years (2 of 2 - PCV) 11/18/2014 11/18/2013 RSV Patients and Patients Aged 60 years or older (1 - 1-dose 75+ series) 2020 Dental Oral Exam 04/11/2024 10/11/2023, 09/06/2022 Dental Prophylaxis 04/11/2024 10/11/2023, 09/06/2022 COVID-19 Vaccine ( season) 2024 11/24/2022, 03/29/2022, 07/03/2021, Additional history exists Influenza Vaccine (#1) 2024 , 06/15/2022, 06/12/2021, Additional history exists Tobacco Screening 12/19/2024 12/20/2023 DTaP/Tdap/Td Vaccines (3 - Td or Tdap) 09/24/2033 09/24/2023, 05/31/2023 HIB Vaccines Aged Out No longer eligi ble based on patient's age to complete this topic HPV Vaccines Aged Out No longer eligi ble based on patient's age to complete this topic Hepatitis A Vaccines Aged Out No long er eligible based on patient's age to complete this topic Hepatitis B Vaccines Aged Out No long er eligible based on patient's age to complete this topic IPV Vaccines Aged Out No longer eligi ble based on patient's age to complete this topic Meningococcal Vaccine Aged Out No dominick kirstin eligible based on patient's age to complete this topic RSV under 20 months Aged Out No longe r eligible based on patient's age to complete this topic Rotavirus Vaccines Aged Out No longer eligible based on patient's age to complete this topic Procedures Procedure Name Priority Date/Time Associated Diagnosis Comments Full PROPHYLAXIS - ADULT Routine 10/11/2023 8:00 AM EST PERIODIC ORAL EVALUATION - ESTABLISHED PATIENT Routine 10/11/2023 8:00 AM EST from Last 3 Months or Most Recently Relevant to Health Maintenance Insurance DENTAL - [facility] PARTIAL (MEDICAID)
--- NOTE | 2024-10-09 14:26 | MHC.PC.OV ---
Vital Signs 10/09/24 14:27 Height 6 ft Weight 189 lb 4 oz BMI 25.7 BP 90/60 Blood Pressure Location Lt brachial Position Sitting Pulse 75 Pulse Source Pulse Oximeter Temp 96.8 F Temp Source Skin Pulse Oximetry (%) 96 Oxygen Delivery Method Room Air Intake Visit Reasons: Follow Up Intake Note: Patient is here to follow up on . Ethylbenzene Converter Helper Required: No Hr Generalist: Present Accompanied by: daughter-inlaw Allergies No Known Allergies Allergy (Verified 10/11/24 15:16) Medication List - Last Reconciled 10/12/24 by Freddy Johnston MD amlodipine 10 mg PO DAILY aspirin 81 mg PO DAILY atenolol 25 mg PO DAILY diclofenac sodium 1% (Voltaren Arthritis Pain) 4 grams topical QID dicyclomine 20 mg PO QID finasteride 5 mg PO DAILY 90 days furosemide 20 mg PO DAILY meclizine 25 mg PO QID PRN naproxen 500 mg PO BID polyethylene glycol 3350 (Miralax) 17 grams PO DAILY PRN tizanidine 4 mg PO Q8H PRN tramadol 50 mg PO Q8H PRN Tobacco use date assessed: 10/09/24 Fall risk assessment: No Falls in past year Last assessed Fall Risk: 10/09/24 Dental Screening Dental Screen Date: 09/17/24 HPI Follow Up HPI Details HTN; stable on rx; compliant PFSH Medical History Hypertension Vertigo Obesity Surgical History H/O colonoscopy History of carpal tunnel surgery History of lumbar laminectomy Family History Father No problems noted. Mother No problems noted. Daughter Mental health disorder Social History Housing: House Alcohol intake: former Patient Tobacco Use Status: Current someday Tobacco user Tobacco use type: Cigarette Smoked in Last 30 Days: No e-Cigarette/Vaping Use: Never Used Second Hand Smoke Exposure: Yes Use of substances other than those prescribed or required for medical reasons: No Substance Use Type: Marijuana Advance Directives: Yes Advance Directives on File: Yes Advance Directives Date on File: 07/13/24 service: No Current occupational status: retired Cognitive needs: No Hearing needs: No Vision needs: Yes (glasses) Questionnaire Thrive Questionnaire Date Thrive assessed: 09/17/24 HANSEL-7 AMB Questionnaire HANSEL-7 Date HANSEL - 7 assessed: 09/17/24 Source: Developed by Drs. Joe Gonzalez, Lauren Basurto, Raj Pugh and colleagues, with an educational ferdinand from [email or web address]. Review of Systems Const Denies chills, Denies headache(s) and Denies weight loss ENT Denies headache(s) Card Denies chest pain, Denies syncope, Denies irregular heart rhythm and Denies dyspnea Resp Denies chest congestion, Denies cough and Denies dyspnea GI Denies abdominal pain, Denies change in stool character, Denies nausea and Denies vomiting Musc Denies deformity and Denies joint swelling Neuro Denies syncope and Denies headache(s) Physical exam (Primary Care) Vital Signs: Last Vital Signs Temp 96.8 F 10/09/24 14:27 Pulse 75 10/09/24 14:27 BP 90/60 10/09/24 14:27 Pulse Ox 96 10/09/24 14:27 Oxygen Delivery Method Room Air 10/09/24 14:27 BMI result Body Mass Index 25.7 Tobacco/Smoking Status: Tobacco use Status Tobacco use date assessed 10/09/24 10/09/24 14:33 Patient Tobacco Use Status Current someday Tobacco 10/09/24 14:27 Tobacco use type Cigarette 10/09/24 14:27 e-Cigarette/Vaping Use Never Used 10/09/24 14:27 Thrive Assessment: Date of Thrive Assessment Date Thrive assessed 09/17/24 10/09/24 14:27 Const General: cooperative, comfortable, no acute distress and alert Neck Neck: Yes no lymphadenopathy Thyroid: Thyroid normal Resp Effort & Inspection: normal respiratory effort Auscultation: clear to auscultation bilaterally Percussion: percussion normal Cardio Jugular venous distension: no JVD Palpation: normal PMI Rate: regular rate Rhythm: regular rhythm Heart sounds: S1 normal heart sound present and S2 normal heart sound present GI Inspection: Yes normal to inspection Palpation (GI): No hepatosplenomegaly present Skin General skin exam: no rashes or lesions noted Extrem General: Yes no clubbing, cyanosis or edema Coding Level of Care Code Est Pt Level 3 (35505) Diagnoses Hypertension I10 Assessment & Plan Assessment & Plan (1) Hypertension: Code(s): I10 - Essential (primary) hypertension Category: Medical Plan: stable; same rx
[2024-10-09 14:27] VITALS: BP 90/60; PULSE 75; TEMP 36; O2SAT 96; BMI 25.7
== END 2024-10-09 14:45 | disposition home or self-care (01) ==
PROVIDERS: PCP Internal Medicine; Visit Provider Internal Medicine
DX: I10 Essential (primary) hypertension (principal)

== ENCOUNTER → 2024-10-09 14:19 | Outpatient (BNVA) | payer MEDICARE, SELFPAY | PROVIDERS: PCP Internal Medicine; Visit Provider Internal Medicine | DX: I10 Essential (primary) hypertension (principal) | CPT/HCPCS: 99212 ==

== ENCOUNTER 2024-10-11 14:30 | Emergency (ER) | payer MEDICARE, SELFPAY ==
--- NOTE | ~2024-10-11 | XR_ITS ---
CLINICAL HISTORY: fluid retention 1 view chest x-ray Comparison: 11/04/2013 Findings: Portions of the exam are obscured by overlying material. No consolidation or effusion. Normal size heart. There are possible epidural leads in position in the midthoracic spine level. No acute fracture. IMPRESSION: 1. No acute findings. This document has been electronically signed by: Armin Calix MD on 10/11/2024 16:08:38
--- NOTE | ~2024-10-11 | US_ITS ---
CLINICAL HISTORY: pain, swelling Venous duplex ultrasound bilateral lower extremity Comparison: None Findings: The visualized deep veins are fully compressible with normal Doppler color flow and spectral tracings. No popliteal cyst. IMPRESSION: 1. Negative for bilateral lower extremity deep vein thrombosis. This document has been electronically signed by: Armin Calxi MD on 10/11/2024 17:53:37
[2024-10-11 14:44] VITALS: BP 141/62; PULSE 60; RESP 19; TEMP 36.7; O2SAT 100
[2024-10-11 15:13] VITALS: BP 137/64; BP 144/80; PULSE 56; PULSE 80; RESP 18; TEMP 36.3; O2SAT 100; BMI 24.3
--- NOTE | 2024-10-11 15:25 | ECG_ITS ---
Test Reason : FLUID RETENTION Blood Pressure : */* mmHG Vent. Rate : 59 BPM Atrial Rate : * BPM P-R Int : * ms QRS Dur : 102 ms QT Int : 486 ms P-R-T Axes : * 43 72 degrees QTcB Int : 481 ms Sinus bradycardia with PACs and PVCs. Prolonged QT Abnormal ECG When compared with ECG of 09-Jul-2024 20:18, QT has lengthened PACs and PVCs present Referred By: Generic ED Physician Electronically Signed By: Rock Cui
[2024-10-11 15:59] LABS: MANUAL DIFF FLAG NO
[2024-10-11 16:07] LABS: Basophils Absolute Auto 0.1 X10*3/uL (0.0-0.2); Basophils Percent Auto 0.9 % (0-2); Eosinophils Absolute Auto 0.3 X10*3/uL (0.0-0.4); Hematocrit 38.6 % (42.0-52.0); Hemoglobin 13.6 g/dl (14.0-18.0); Imm Gran Abs Auto 0.02 X10*3/uL (0.00-0.03); Imm Gran Pct Auto 0.3 % (0.0-0.4); Lymphocytes Percent Auto 34.5 % (20-40); Mean Corpuscular HGB Conc 35.2 g/dl (31.0-36.0); Mean Corpuscular Hemoglobin 31.9 pg (27.0-33.0); Mean Corpuscular Volume 90.4 fL (80.0-98.0); Mean Platelet Volume 10.9 fL (9.4-12.4); Monocytes Absolute Auto 0.7 X10*3/uL (0.1-1.2); Monocytes Percent Auto 11.1 % (2-11); Neutrophils Absolute Auto 2.8 x10*3/uL (2.0-8.3); Neutrophils Percent Auto 48.2 % (45-73); Platelet Count 202 X10*3/uL (160-400); Red Blood Count 4.27 X10*6/uL (4.60-5.80); Red Cell Distribution Width 13.3 % (11.0-16.0); White Blood Count 5.9 X10*3/uL (4.8-10.8)
--- NOTE | 2024-10-11 16:34 | ECG_ITS ---
Test Reason : FLUID RETENTION Blood Pressure : */* mmHG Vent. Rate : 50 BPM Atrial Rate : 50 BPM P-R Int : 200 ms QRS Dur : 108 ms QT Int : 502 ms P-R-T Axes : 74 31 78 degrees QTcB Int : 457 ms Sinus bradycardia with Premature atrial complexes Incomplete right bundle branch block Borderline ECG When compared with ECG of 11-Oct-2024 15:44, Sinus rhythm has replaced Atrial fibrillation Referred By: Riya Purcell Electronically Signed By: Rock Cui
--- NOTE | 2024-10-11 16:37 | ED.EXTPRO ---
HPI - Extremity Problem General Chief complaint: Extremity Injury, Lower Stated complaint: LEG PAIN SWELLING Time Seen by Provider: 10/11/24 14:55 Source: patient, EMS and old records reviewed Mode of arrival: EMS Limitations: no limitations History of Present Illness ED Provider: JHONY HPI Narrative: 78 yo male with PMH of spinal stenosis and stimulator, HTN, BPH, usually on lasix 20mg daily until today they increased his lasix to 40mg daily. He notes 2 days of leg swelling but no CP/SOB. He notes he has been trying to elevate them. He denies fevers, chills, rash. He states his legs are so swollen and didn't want to wait for the lasix to work. Family did express to RN med noncompliance. MD Complaint: extremity swelling Onset (ago): day(s) (2) Pain Consistency: constant Location: left, right and lower extremity Quality: aching Radiation: none Relieving factors: nothing Exacerbating factors: nothing Associated symptoms: denies other symptoms Related Data Home Medications ?Medication ?Instructions ?Recorded ?Confirmed polyethylene glycol 3350 17 17 g PO DAILY PRN Constipation 05/08/23 09/18/24 gram/dose oral powder (Miralax) aspirin 81 mg capsule 81 mg PO DAILY 12/18/23 09/18/24 Previous Rx's ?Medication ?Instructions ?Recorded furosemide 20 mg tablet 20 mg PO DAILY #90 tabs 11/17/23 tizanidine 4 mg tablet 4 mg PO Q8H PRN muscle spasticity 06/15/24 #60 tabs atenolol 25 mg tablet 25 mg PO DAILY #90 tabs 06/22/24 dicyclomine 20 mg tablet 20 mg PO QID #30 tabs 07/06/24 finasteride 5 mg tablet 5 mg PO DAILY 90 days #90 tabs 07/07/24 meclizine 25 mg tablet 25 mg PO QID PRN dizziness #30 tabs 07/07/24 diclofenac sodium 1 % topical gel 4 g topical QID #100 grams 08/05/24 (Voltaren Arthritis Pain) naproxen 500 mg tablet 500 mg PO BID #60 tabs 09/14/24 amlodipine 10 mg tablet 10 mg PO DAILY #90 tabs 09/25/24 tramadol 50 mg tablet 50 mg PO Q8H PRN pain #30 tabs 10/01/24 Allergies Allergy/AdvReac Type Severity Reaction Status Date / Time No Known Allergies Allergy Verified 10/11/24 15:16 Review of Systems Review of Systems: Constitutional : No Fever, No Chills, No Fatigue ENT/Mouth : No sore throat, No Rhinorrhea Eyes: No Eye Pain, No Swelling, No Redness Cardiovascular : No Chest Pain, No SOB, No Dyspnea on Exertion, pos edema Respiratory : No Cough, No Sputum Gastrointestinal : No Nausea, No Vomiting, No Diarrhea, No abdominal Pain Genitourinary : No Dysuria, No Urinary Frequency, No Hematuria, Musculoskeletal : No joint pain, No Myalgias, No Joint Swelling Skin : No Skin Lesions, No rash Neuro : No Weakness, No Numbness, No Dizziness, no Headache All other systems reviewed and are negative [facility] Past Medical History Attestation statement: The following information was validated with the patient. Source: old records reviewed Medical History Hypertension Vertigo Obesity Surgical History H/O colonoscopy History of carpal tunnel surgery History of lumbar laminectomy Family History Family History Father No problems noted. Mother No problems noted. Daughter Mental health disorder Social History Social History Housing: House Alcohol intake: former Patient Tobacco Use Status: Current someday Tobacco user Tobacco use type: Cigarette Smoked in Last 30 Days: No e-Cigarette/Vaping Use: Never Used Second Hand Smoke Exposure: Yes Use of substances other than those prescribed or required for medical reasons: No Substance Use Type: Marijuana Advance Directives: Yes Advance Directives on File: Yes Advance Directives Date on File: 07/13/24 service: No Current occupational status: retired Cognitive needs: No Hearing needs: No Vision needs: Yes (glasses) Physical Exam Vital Signs: Vital Signs: Last Vital Signs Temp 97.4 F 10/11/24 15:13 Pulse 56 10/11/24 15:13 Resp 18 10/11/24 15:13 BP 137/64 10/11/24 15:13 Pulse Ox 100 10/11/24 15:13 O2 Del Method Room Air 10/11/24 15:13 BMI result Body Mass Index 24.3 Appearance: Alert. Oriented X3. No acute distress. Eyes: Pupils equal, round and reactive to light. ENT: Pharynx normal. Neck: Normal inspection. Neck supple. CVS: Normal heart rate and rhythm. Pulses normal. Respiratory: No respiratory distress. Breath sounds normal. Abdomen: Soft and nontender. Skin: Skin warm and dry. Normal skin color. Normal skin turgor. Extremities: 1-2+ pitting edema bilateral LE no rash no redness no warmth Neuro: Oriented X 3. No motor deficit. No sensory deficit. CN2-12 intact Medical Decision Making Medical Decision Making [facility] Narrative: 78 yo male with PMH of spinal stenosis and stimulator, HTN, BPH, usually on lasix 20mg daily here with bilateral leg edema but no rash, fevers, he denies orthopnea or CP/SOB. At this time will obtain basic labs, EKG, CXR, DVT study - distal pulses intact Differential Diagnosis Differential Diagnoses: The differential diagnosis associated with the presentation includes DVT, CHF, dependent edema Admission/Observation Consideration of admission/observation: Escalation of care including admission/observation considered PT/CM for rehab and to start meds no CHF, infection, DVT would start on lasix 40mg daily for 3 days physician observation started at 6pm Lab Data [facility] Lab Attestation statement: I reviewed the patient's lab results. 10/11/24 15:48 10/11/24 15:48 Labs: Lab Results 10/11/24 10/11/24 Range/Units 15:44 15:48 WBC 5.9 (4.8-10.8) X10*3/uL RBC 4.27 L (4.60-5.80) X10*6/uL Hgb 13.6 L (14.0-18.0) g/dl Hct 38.6 L (42.0-52.0) % MCV 90.4 (80.0-98.0) fL MCH 31.9 (27.0-33.0) pg MCHC 35.2 (31.0-36.0) g/dl RDW 13.3 (11.0-16.0) % Plt Count 202 D (160-400) X10*3/uL MPV 10.9 (9.4-12.4) fL Immature Gran % (Auto) 0.3 (0.0-0.4) % Neut % (Auto) 48.2 (45-73) % Lymph % (Auto) 34.5 (20-40) % Dare % (Auto) 11.1 H (2-11) % Eos % (Auto) 5.0 H (0-4) % Baso % (Auto) 0.9 (0-2) % Lymph # (Auto) 2.0 (1.2-4.9) X10*3/uL Dare # (Auto) 0.7 (0.1-1.2) X10*3/uL Eos # (Auto) 0.3 (0.0-0.4) X10*3/uL Baso # (Auto) 0.1 (0.0-0.2) X10*3/uL Abs Immat Gran (auto) 0.02 (0.00-0.03) X10*3/uL Absolute Neuts (auto) 2.8 (2.0-8.3) x10*3/uL Absolute Nucleated RBC 0.000 (0.0-0.012) X10*3/uL Nucleated RBC % (auto) 0.0 (0.0-0.2) /100WBC Hold Blue Top SEE NOTE Sodium 140 (135-145) mmol/L Potassium 3.3 D (3.3-5.1) mmol/L Chloride 108 (96-108) mmol/L Carbon Dioxide 20 L (22-29) mmol/L Anion Gap 15 (12-20) BUN 26 H (9-16) mg/dL Creatinine 0.85 (0.5-1.4) mg/dL Estim Creat Clear Calc 80.9 Estimated GFR > 60 Random Glucose 81 (60-115) mg/dL Calcium 9.0 (8.4-10.2) mg/dL Total Bilirubin 0.7 (0.0-1.0) mg/dL AST 45 H (5-37) U/L ALT 19 (0-40) U/L Alkaline Phosphatase 79 (39-117) U/L B-Natriuretic Peptide 58 (<100) pg/mL Total Protein 6.8 (6.5-8.0) g/dL Albumin 3.6 (3.5-5.0) g/dL Independent Interpretation I performed an independent interpretation of an: EKG, Plain X-Ray (no CHF) and Ultrasound (no DVT) Interpretation: Rate: 59 Rhythm: sinus bradycardia with PACs and PVCs [place]: left Normal P waves. Normal DOREEN. Normal QRS complex. ST T wave : nonspecific ST T wave changes no but RITA qTC: 481 prior studies: more ectopy The study has been interpreted contemporaneously by me. . Rate: 50 Rhythm: sinus bradycardia [place]: left Normal P waves. Normal DOREEN. Normal QRS complex. ST T wave : no RITA, nonspecific ST T wave changes I and aVL qTC: 457 prior studies: no acute ischemia The study has been interpreted contemporaneously by me. . Radiology Impression Discussion of test interpretation with radiology: I have reviewed the radiologist's reading. Independent Historian Clinical information obtained from an independent historian. History obtained from or confirmed by: EMS External Record Review External record reviewed: Outpatient record Discharge Plan Discharge Clinical Impression: Leg edema Patient Disposition: Still a Patient Prescriptions: No Action furosemide 20 mg tablet 20 mg PO DAILY Qty: 90 8RF tizanidine 4 mg tablet 4 mg PO Q8H PRN (Reason: muscle spasticity) Qty: 60 4RF atenolol 25 mg tablet 25 mg PO DAILY Qty: 90 0RF dicyclomine 20 mg tablet 20 mg PO QID Qty: 30 4RF naproxen 500 mg tablet 500 mg PO BID Qty: 60 2RF amlodipine 10 mg tablet 10 mg PO DAILY Qty: 90 0RF tramadol 50 mg tablet 50 mg PO Q8H PRN (Reason: pain) Qty: 30 1RF aspirin 81 mg capsule 81 mg PO DAILY polyethylene glycol 3350 [Miralax] 17 gram/dose powder 17 g PO DAILY PRN (Reason: Constipation) diclofenac sodium [Voltaren Arthritis Pain] 1 % gel 4 g topical QID Qty: 100 4RF Rx Instructions: apply to single knee, ankle, foot; for foot includes sole/toes/top of foot finasteride 5 mg tablet 5 mg PO DAILY 90 Days Qty: 90 2RF meclizine 25 mg tablet 25 mg PO QID PRN (Reason: dizziness) Qty: 30 2RF Print Language: Ukrainian
--- NOTE | 2024-10-11 16:39 | PC.NURSE ---
family given update via phone with patient permission. no change in condition.
[2024-10-11 16:50] LABS: Alanine Aminotransferase 19 U/L (0-40); Albumin Level 3.6 g/dL (3.5-5.0); Anion Gap 15 (12-20); Aspartate Amino Transferase 45 U/L (5-37); Bilirubin Total 0.7 mg/dL (0.0-1.0); Blood Urea Nitrogen 26 mg/dL (9-16); Carbon Dioxide 20 mmol/L (22-29); Chloride 108 mmol/L (96-108); Creatinine Clr Calc Pharmacy 80.9; Estimated Glomerular Filt Rate > 60; Glucose Random 81 mg/dL (60-115); Potassium 3.3 mmol/L (3.3-5.1); Sodium 140 mmol/L (135-145); Total Protein 6.8 g/dL (6.5-8.0)
[2024-10-11 16:51] LABS: B Type Natriuretic Peptide 58 pg/mL (<100)
[2024-10-11 17:23] LABS: Alkaline Phosphatase 79 U/L (39-117)
--- NOTE | 2024-10-11 17:56 | PC.NURSE ---
If discharged, call SonNickolas [phone]
[2024-10-11 18:41] VITALS: BP 142/67; PULSE 58; RESP 15; O2SAT 96
--- NOTE | 2024-10-11 19:26 | PC.NURSE ---
pt given dinner tray, eating indep. in room
[2024-10-11 20:00] VITALS: BP 151/55; PULSE 60; RESP 12; O2SAT 98
[2024-10-11] MEDS: Dicyclomine HCl 10 MG CAPSULE 20 MG PO (21:09)
[2024-10-11] MEDS: NaPROXEN 500 MG TABLET PO (21:09)
[2024-10-11 22:00] VITALS: BP 112/84; PULSE 56; RESP 18; O2SAT 98
--- NOTE | 2024-10-11 23:30 | PC.NURSE ---
Addendum entered by Cortney Overton 10/12/24 06:18: Pt requesting to get dress, reports he is calling his son to transport to facility. Pt updated on plan of care. Original Note: This ghost writer assumed care of this Pt at 2300. Pt ambulated with 1 assist to BR. Pt unsteady with ambulation, walker provided.
[2024-10-11] MEDS: traMADoL HCL 50 MG TABLET PO (23:54)
[2024-10-12 06:11] VITALS: BP 117/55; PULSE 55; RESP 18; O2SAT 96
[2024-10-12 07:10] LABS: COVID-19 Test Negative (Negative); IDNOW Serial# 6674DD1D
[2024-10-12 08:48] VITALS: BP 125/62; PULSE 59; RESP 15; TEMP 36.8; O2SAT 100
[2024-10-12] MEDS: Dicyclomine HCl 10 MG CAPSULE 20 MG PO (08:48)
[2024-10-12] MEDS: Finasteride 5 MG TABLET PO (08:48)
[2024-10-12 08:49] VITALS: BP 125/62
[2024-10-12] MEDS: amLODIPine Besylate 10 MG TABLET PO (08:49)
[2024-10-12] MEDS: Aspirin Enteric Coated 81 MG TABLET.DR PO (08:49)
[2024-10-12] MEDS: Furosemide 40 MG TABLET PO (08:49)
[2024-10-12] MEDS: NaPROXEN 500 MG TABLET PO (08:49)
[2024-10-12 08:50] VITALS: PULSE 56
--- NOTE | 2024-10-12 09:15 | PC.NURSE ---
Atenolol held d/t pt HR in 50s. aware.
--- NOTE | 2024-10-12 09:47 | MHC.CM.ED ---
Received case management consult overnight. Patient came to the ER due to weakness. Work up essentially negative. Physical therapy eval completed. Short term rehab is recommended. Met with patient in regards to discharge planning. Patient lives alone. PCP is Dr Johnston. Copy of HCP verified to be on file. Patient was at [facility] from 07/11-08/04. Patient was d/c'd home with Aaron WALKER. Patient is declining STR at this time. Referral made to [facility] at patient's request. Patient states his son will transport him home. Pao COHEN aware. Continue to monitor for d/c needs.
[2024-10-12 10:54] VITALS: BP 120/72; PULSE 62; RESP 18; TEMP 36.8; O2SAT 100
== END 2024-10-12 10:54 | disposition home or self-care (01) ==
PROVIDERS: Emergency Provider Emergency Medicine; PCP Internal Medicine
DX: R60.0 Localized edema (principal); R26.2 Difficulty in walking, not elsewhere classified; R00.1 Bradycardia, unspecified; R94.31 Abnormal electrocardiogram [ECG] [EKG]; F17.210 Nicotine dependence, cigarettes, uncomplicated; Z79.899 Other long term (current) drug therapy; Z11.52 Encounter for screening for COVID-19
CPT/HCPCS: 36415; 71045; 80053; 83880; 85025; 87635; 93005; 93970; 97162; 99285

== ENCOUNTER → 2024-10-11 15:25 | Outpatient (BNV) | payer MEDICARE, SELFPAY | PROVIDERS: Emergency Provider Emergency Medicine; PCP Internal Medicine; Visit Provider Internal Medicine Cardiovascular Disease | DX: R94.31 Abnormal electrocardiogram [ECG] [EKG] (principal); R00.1 Bradycardia, unspecified | CPT/HCPCS: 93010 ==

== ENCOUNTER → 2024-10-11 15:25 | Outpatient (BNV) | payer MEDICARE, SELFPAY | PROVIDERS: Emergency Provider Emergency Medicine; PCP Internal Medicine; Visit Provider Specialist | DX: M79.606 Pain in leg, unspecified (principal); R22.43 Localized swelling, mass and lump, lower limb, bilateral | CPT/HCPCS: 71045; 93970 ==

== ENCOUNTER 2024-10-12 14:50 | Emergency (ER) | payer MEDICARE, SELFPAY ==
--- NOTE | ~2024-10-12 | XR_ITS ---
EXAMINATION: XR ANKLE, LEFT CLINICAL INFORMATION: pain, injury COMPARISON: None available. TECHNIQUE: AP, lateral, and mortise views of the left ankle. FINDINGS: No definite fracture, dislocation, or suspicious bone lesion. The mortise is intact. The talar dome is normal. There is mild tibiotalar joint arthritis. The subtalar joints and calcaneus appear intact. There is diffuse soft tissue swelling most prominent laterally. There are mild vascular calcifications. XR/XR ankle LT min 3V IMPRESSION: 1. Diffuse soft tissue swelling most prominent laterally. 2. No definitive fracture or dislocation. Electronically signed by: Bryant Samuels MD 10/12/2024 03:56 PM EST
--- NOTE | ~2024-10-12 | XR_ITS ---
EXAMINATION: XR SHOULDER, LEFT CLINICAL INFORMATION: pain, injury COMPARISON: 07/09/2024. TECHNIQUE: Three views of the left shoulder. FINDINGS: No fracture or dislocation. No suspicious bone lesion. Superior subluxation of the humeral head upon the glenoid, with significant narrowing of the subacromial space, suggesting possible rotator cuff tearing. Moderate spurring of the AC joint most predominant superiorly. Mild glenohumeral joint arthritis with small undersurface osteophytes. Spinal stimulator leads noted in the midline thoracic spine. Aorta is calcified. No soft tissue abnormalities of the shoulder. XR/XR shoulder LT min 2V IMPRESSION: No acute findings. Loss of subacromial space suggests underlying rotator cuff pathology. Degenerative changes. No interval change. Electronically signed by: Bryant Samuels MD 10/12/2024 04:03 PM [facility]
--- NOTE | ~2024-10-12 | XR_ITS ---
EXAMINATION: XR FOOT, LEFT CLINICAL INFORMATION: pain, injury COMPARISON: 06/01/2024. TECHNIQUE: AP, lateral, and oblique views of the left foot. FINDINGS: No fracture, dislocation, or suspicious bone lesion. Stable lateral angulation of the distal phalanx of the second digit. Otherwise no malalignment. There are intertarsal and tarsometatarsal degenerative changes. This is most notable medial cuneiform articulation with the first metatarsal. Minimal flattening of the plantar arch. There is mild soft tissue swelling of the forefoot. XR/XR foot LT min 3V IMPRESSION: No acute fracture or dislocation. Mild soft tissue swelling of the forefoot. Electronically signed by: Bryant Samuels MD 10/12/2024 04:00 PM [facility]
--- NOTE | ~2024-10-12 | CT_ITS ---
CLINICAL HISTORY: pain, injury, fall CT cervical spine without contrast Comparison: CT/SR - CT CERVICAL SPINE WO IV CON - 07/09/24 21:50 EDT Findings: Grade 1 anterolisthesis of C3 on C4, C4 on C5 and C7 on T1. There are severe degenerative changes. There is [id number] central canal stenosis at C3-C4. Chronic defects involving the anterior and posterior aspects of the ring of C1. Multiple chronic ossific bodies adjacent to the odontoid process. No acute fracture. No acute findings on limited view of the intracranial contents. Soft tissues of the neck are normal. Lung apices are clear. IMPRESSION: No acute findings. This document has been electronically signed by: Anais Nova MD on 10/12/2024 16:54:58
--- NOTE | ~2024-10-12 | CT_ITS ---
CLINICAL HISTORY: pain, injury, fall CT head without contrast Comparison: CT/SR - CT HEAD/BRAIN WO IV CON - 07/09/24 21:50 EDT Findings: No intra-axial mass, midline shift, hydrocephalus, or acute hemorrhage. Involutional change brain parenchyma, compatible with age. Mild white matter disease. Near-complete opacification of the right sphenoid sinus. No air-fluid levels. The orbits are unremarkable. There is no acute fracture. IMPRESSION: 1. No acute intracranial findings. This document has been electronically signed by: Anais Nova MD on 10/12/2024 16:52:28
[2024-10-12 15:02] VITALS: BP 126/66; BP 128/62; PULSE 61; PULSE 67; RESP 19; TEMP 36.5; O2SAT 96; O2SAT 98; BMI 25.7
[2024-10-12 15:06] VITALS: BP 126/66; PULSE 61; RESP 19; TEMP 36.5; O2SAT 98
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
[2024-10-12 16:52] VITALS: BP 128/61; PULSE 61; RESP 18; TEMP 36.7; O2SAT 97
[2024-10-12 17:08] VITALS: BP 128/61; PULSE 61; RESP 18; TEMP 36.7; O2SAT 97
--- OUTSIDE RECORDS SUMMARY | 2024-10-12 17:24 | XMS_ITS | Encounter Summary ---
Author Organization [employer] Address [address] [place] [address] Care Team Providers Care District Or District Office Director Name Role Phone Unavailable Primary Care Provider Unavailabl e Encounter Details Date Type Department Care Team (Latest Contact Info) Description 07/23/2019 Abstract [facility] CONVERSIONS Dental, Provider, DDS Social History Tobacco [...]
--- OUTSIDE RECORDS SUMMARY | 2024-10-12 17:24 | XMS_ITS | Clinical Summary ---
Author Organization [employer] Address [address] [place] [address] Care Team Providers Care Cook Relief Name Role Phone Unavailable Primary Care Provider [...]
--- OUTSIDE RECORDS SUMMARY | 2024-10-12 17:24 | XMS_ITS | Encounter Summary ---
Author Organization [employer] Address [address] [facility] [address] [facility] [address] [place] [address] Care Team Providers Care Foreman[employer] Name Role Phone Unavailable Primary Care Provider Unavailabl e Reason for Visit * Reason Onset Date Comments Appointment 12/26/2022 Encounter Details Date Type Department Care Team (Late st Contact Info) Description 12/26/2022 Telephone [facility] [address] [place] [address] Yamilet Valdivia DDS Appointment Social History Tobacco [...]
== END 2024-10-12 18:08 | disposition home or self-care (01) ==
PROVIDERS: Emergency Provider Emergency Medicine; PCP Physician Assistant
DX: S09.90XA Unspecified injury of head, initial encounter (principal); M25.572 Pain in left ankle and joints of left foot; M79.672 Pain in left foot; M25.512 Pain in left shoulder; R51.9 Headache, unspecified; M54.2 Cervicalgia; I10 Essential (primary) hypertension; W01.0XXA Fall on same level from slipping, tripping and stumbling without subsequent striking against object, initial encounter; Y93.01 Activity, walking, marching and hiking; Y92.009 Unspecified place in unspecified non-institutional (private) residence as the place of occurrence of the external cause; Y99.8 Other external cause status; Z79.899 Other long term (current) drug therapy
CPT/HCPCS: 70450; 72125; 73030; 73610; 73630; 99284

== ENCOUNTER → 2024-10-12 15:24 | Outpatient (BNV) | payer MEDICARE, SELFPAY | PROVIDERS: Emergency Provider Emergency Medicine; Visit Provider Radiology Diagnostic Radiology | DX: M54.2 Cervicalgia (principal); R51.9 Headache, unspecified; M25.512 Pain in left shoulder; M25.572 Pain in left ankle and joints of left foot | CPT/HCPCS: 70450; 72125; 73030; 73610; 73630 ==

== ENCOUNTER 2024-10-17 18:39 | Emergency (ER) | payer MEDICARE, SELFPAY ==
--- NOTE | ~2024-10-17 | CT_ITS ---
CLINICAL HISTORY: multiple falls CT cervical spine without contrast Comparison: CT of the cervical spine from 10/12/2024. Findings: No significant change in old comminuted fractures of the tip of the dens with sclerosis, osseous remodeling, and small loose bodies of the craniocervical junction with mild-moderate osteoarthritis. 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 Right dorsal fracture of the C1 is unchanged appears old/chronic with sclerosis remodeling. Ligament calcifications are multifocal. Mild anterolisthesis at C2-C3 and C3-C4 and C4-C5 without significant change from comparison. No acute fracture of the cervical spine. Mild-moderate spinal canal stenosis from C2-C3 to C5-C6. Multifocal moderate to severe foraminal narrowing without significant change including C4-C5 and C5-C6. Vascular calcifications noted. No paraspinal hematoma. Mild scarring of the imaged lung apices. IMPRESSION: 1. No acute fracture of the cervical spine. 2. No significant change in old C1 and C2 fractures. 3. Spinal stenosis with foraminal narrowing including C4-C5 and C5-C6. 4. Multifocal facet arthropathy. This document has been electronically signed by: Herminio Wayne MD on 10/17/2024 21:20:26
--- NOTE | ~2024-10-17 | CT_ITS ---
CLINICAL HISTORY: multiple falls CT head without contrast Comparison: Head CT from 10/12/2024 Findings: No acute intracranial hemorrhage. No midline shift or hydrocephalus. Mild-moderate volume loss is generalized. No significant change in mild white matter lesions likely due to small-vessel ischemic disease. Vascular calcifications are redemonstrated. Mucosal thickening and fluid of the paranasal sinuses with worsening and now near-complete opacification of the right side of the sphenoid sinus. Small right mastoid effusion. No acute skull fracture. Please refer to cervical spine accounting for imaged craniocervical junction. IMPRESSION: No acute intracranial abnormality by CT and no significant change compared to 10/12/2024. This document has been electronically signed by: Herminio Wayne MD on 10/17/2024 21:22:00
[2024-10-17 18:56] VITALS: BP 137/72; BP 158/70; PULSE 64; PULSE 75; RESP 18; TEMP 37.1; O2SAT 97; O2SAT 98; BMI 26.4
--- NOTE | 2024-10-17 19:45 | ECG_ITS ---
Test Reason : WEAKNESS Blood Pressure : */* mmHG Vent. Rate : 55 BPM Atrial Rate : 55 BPM P-R Int : 150 ms QRS Dur : 98 ms QT Int : 460 ms P-R-T Axes : 85 61 70 degrees QTcB Int : 440 ms Sinus bradycardia Otherwise normal ECG When compared with ECG of 11-Oct-2024 16:36, Premature atrial complexes are no longer Present Referred By: Johanna Pillai Electronically Signed By: Rock Cui
[2024-10-17 20:14] LABS: MANUAL DIFF FLAG NO
[2024-10-17 20:15] LABS: Basophils Absolute Auto 0.1 X10*3/uL (0.0-0.2); Basophils Percent Auto 0.9 % (0-2); Eosinophils Absolute Auto 0.4 X10*3/uL (0.0-0.4); Eosinophils Percent Auto 5.3 % (0-4); Hematocrit 38.6 % (42.0-52.0); Hemoglobin 13.1 g/dl (14.0-18.0); Imm Gran Abs Auto 0.03 X10*3/uL (0.00-0.03); Imm Gran Pct Auto 0.4 % (0.0-0.4); Lymphocytes Absolute Auto 2.6 X10*3/uL (1.2-4.9); Lymphocytes Percent Auto 37.4 % (20-40); Mean Corpuscular HGB Conc 33.9 g/dl (31.0-36.0); Mean Corpuscular Volume 94.4 fL (80.0-98.0); Mean Platelet Volume 10.4 fL (9.4-12.4); Monocytes Absolute Auto 0.8 X10*3/uL (0.1-1.2); Monocytes Percent Auto 10.7 % (2-11); Neutrophils Absolute Auto 3.2 x10*3/uL (2.0-8.3); Neutrophils Percent Auto 45.3 % (45-73); Platelet Count 182 X10*3/uL (160-400); Red Blood Count 4.09 X10*6/uL (4.60-5.80); Red Cell Distribution Width 13.6 % (11.0-16.0)
[2024-10-17 20:16] LABS: Appearance Urine Turbid; Color Urine Yellow; Glucose Urine UA Negative (Negative); Leukocyte Esterase Urine Large (3+) (Negative); Nitrite Urine Positive (Negative); PH 7.5 (5.0-9.0); Specific Gravity - Urine 1.015 (1.005-1.025); UMIC TRIGGER UACC YES; Urine Blood Trace (Negative); Urine Ketones Negative (Negative); Urine Protein 30 (1+) mg/dL (Neg-Trace)
[2024-10-17 20:21] LABS: Bacteria Urine 4+ (None Seen); Hyaline Casts Urine 0-2 /LPF (0-2); Squamous Epithelial Cell Urine 0-2 /HPF (0-2); UACC Culture Trigger YES; WBC Urine >50 /HPF (0-5)
[2024-10-17 20:27] LABS: COVID-19 Test Negative (Negative); IDNOW Serial# 6674DD1D
[2024-10-17 20:31] LABS: INTERNATIONAL NORM RATIO 1.1 (0.9-1.1); Prothrombin Time 13.3 SEC (10.9-12.4)
[2024-10-17 20:32] LABS: Amphetamine Screen Urine Not Detected (Not Detect); Barbiturates, Urine Not Detected (Not Detect); Benzodiazepines Screen Urine Not Detected (Not Detect); Buprenorphine Scr Not Detected (Not Detect); Cannabinoid Screen Urine Not Detected (Not Detect); Cocaine Screen Urine Not Detected (Not Detect); Fentanyl, urine Not Detected (Not Detect); Methadone Screen, Urine Not Detected (Not Detect); Opiate Screen Urine Not Detected (Not Detect); Oxycodone Screen Urine Not Detected (Not Detect); Phencyclidine Screen Urine Not Detected (Not Detect)
[2024-10-17 20:33] LABS: Alanine Aminotransferase 23 U/L (0-40); Albumin Level 3.4 g/dL (3.5-5.0); Alkaline Phosphatase 76 U/L (39-117); Anion Gap 11 (12-20); Aspartate Amino Transferase 29 U/L (5-37); Bilirubin Direct < 0.2 mg/dL (0.0-0.5); Bilirubin Total 0.2 mg/dL (0.0-1.0); Blood Urea Nitrogen 19 mg/dL (9-16); Carbon Dioxide 23 mmol/L (22-29); Chloride 113 mmol/L (96-108); Creatinine Clr Calc Pharmacy 78.1; Estimated Glomerular Filt Rate > 60; Ethanol < 10 mg/dL; Glucose Random 101 mg/dL (60-115); Sodium 143 mmol/L (135-145); Total Protein 6.3 g/dL (6.5-8.0)
--- NOTE | 2024-10-17 20:55 | ED.FALL ---
HPI - Fall General Chief Complaint: Fall Stated Complaint: fall, pain in left leg, head strike dizzy, bruise Time Seen by Provider: 10/17/24 19:31 Source: patient and EMS Mode of arrival: EMS Limitations: no limitations History of Present Illness ED Provider: Dr. Johanna Pillai HPI Narrative: Patient comes to the emergency room complaining of multiple falls. Patient states that he lives by himself. Patient states the last week, he has fallen at least 3 times. Patient states that his legs just give out and patient falls. Patient states that he has struck his head against the refrigerator. Patient denies loss of consciousness, denies being on blood thinners. Patient states that he would like to go to a [place] [facility] [place]. Related Data Home Medications ?Medication ?Instructions ?Recorded ?Confirmed polyethylene glycol 3350 17 17 g PO DAILY PRN Constipation 05/08/23 10/12/24 gram/dose oral powder (Miralax) aspirin 81 mg capsule 81 mg PO DAILY 12/18/23 10/12/24 Previous Rx's ?Medication ?Instructions ?Recorded tizanidine 4 mg tablet 4 mg PO Q8H PRN muscle spasticity 06/15/24 #60 tabs naproxen 500 mg tablet 500 mg PO BID #60 tabs 09/14/24 amlodipine 10 mg tablet 10 mg PO DAILY #90 tabs 09/25/24 tramadol 50 mg tablet 50 mg PO Q8H PRN pain #30 tabs 10/01/24 atenolol 25 mg tablet 25 mg PO DAILY #90 tabs 10/13/24 diclofenac sodium 1 % topical gel 4 g topical QID #100 grams 10/13/24 (Voltaren Arthritis Pain) dicyclomine 20 mg tablet 20 mg PO QID #30 tabs 10/13/24 finasteride 5 mg tablet 5 mg PO DAILY 90 days #90 tabs 10/13/24 furosemide 20 mg tablet 20 mg PO DAILY #90 tabs 10/13/24 meclizine 25 mg tablet 25 mg PO QID PRN dizziness #30 tabs 10/13/24 Allergies Allergy/AdvReac Type Severity Reaction Status Date / Time No Known Allergies Allergy Verified 10/17/24 19:05 Review of Systems Review of Systems: Appearance: Alert. Oriented X3. No acute distress. Eyes: Pupils equal, round and reactive to light. ENT: Pharynx normal. Neck: Normal inspection. Neck supple. No lymph nodes noted. No crepitus CVS: Normal heart rate and rhythm. Pulses normal. Normal S1 and S2 Respiratory: No respiratory distress. Breath sounds normal. No Wheezing. No rales Abdomen: Soft and nontender. No rigidity. No distention. Skin: Patient has old ecchymosis to the forehead, no obvious lacerations Extremities: No lower extremity edema. No Lacerations. No Rash Neuro: Oriented X 3. No motor deficit. No sensory deficit. Moving all extremities. No slurred speech. CN 2 through 12 grossly intact Psych: calm, cooperative, normal affect PMFSH Past Medical History Medical History Hypertension Vertigo Obesity Surgical History H/O colonoscopy History of carpal tunnel surgery History of lumbar laminectomy Family History Family History Father No problems noted. Mother No problems noted. Daughter Mental health disorder Social History Social History Housing: House Alcohol intake: current Alcohol intake frequency: a few times a month Alcohol type: hard liquor Patient Tobacco Use Status: Current someday Tobacco user Tobacco use type: Cigarette e-Cigarette/Vaping Use: Never Used Second Hand Smoke Exposure: Yes Substance Use Type: Marijuana Advance Directives: Yes Advance Directives on File: Yes Advance Directives Date on File: 07/13/24 service: No Current occupational status: retired Cognitive needs: No Hearing needs: No Vision needs: Yes (glasses) Physical Exam Vital Signs: Vital Signs: Last Vital Signs Temp 98.8 F 10/17/24 18:56 Pulse 64 10/17/24 18:56 Resp 18 10/17/24 18:56 BP 137/72 10/17/24 18:56 Pulse Ox 97 10/17/24 18:56 O2 Del Method Room Air 10/17/24 18:56 BMI result Body Mass Index 26.4 Const: Other: Appearance: Alert. Oriented X3. No acute distress. Eyes: Pupils equal, round and reactive to light. ENT: Pharynx normal. Neck: Normal inspection. Neck supple. No lymph nodes noted. No crepitus CVS: Normal heart rate and rhythm. Pulses normal. Normal S1 and S2 Respiratory: No respiratory distress. Breath sounds normal. No Wheezing. No rales Abdomen: Soft and nontender. No rigidity. No distention. Skin: Skin warm and dry. Normal skin color. Normal skin turgor. , old ecchymosis to the forehead Extremities: No lower extremity edema. No Lacerations. No Rash Neuro: Oriented X 3. No motor deficit. No sensory deficit. Moving all extremities. No slurred speech. CN 2 through 12 grossly intact Psych: calm, cooperative, normal affect Medical Decision Making Medical Decision Making MDM Narrative: my interpretation of labs: No significant abnormality in patient's hematology and chemistry, urinalysis positive for UTI my interpretation of EKG: Sinus bradycardia, heart rate 55, no ST segment depression or elevation, no T-wave inversion, QTC 440 other than leg weakness, patient denies any chest pain or shortness of breath. Feels well otherwise. Patient requesting to be sent [place] patient received the 1st dose of cefuroxime at 21:[address] and cervical spine CT Do not show any acute abnormality. PT case management pending I discussed code status with the patient, patient will like to be full code Differential Diagnosis Differential Diagnoses: The differential diagnosis associated with the presentation includes ( Electrolyte abnormality, UTI, mechanical falls, deconditioning) Admission/Observation Consideration of admission/observation: Escalation of care including admission/observation considered ( patient is under physician observation waiting for physical therapy and case management.) Lab Data 10/17/24 20:04 10/17/24 20:03 Labs: Lab Results 10/17/24 10/17/24 Range/Units 20:03 20:04 WBC 7.0 (4.8-10.8) X10*3/uL RBC 4.09 L (4.60-5.80) X10*6/uL Hgb 13.1 L (14.0-18.0) g/dl Hct 38.6 L (42.0-52.0) % MCV 94.4 (80.0-98.0) fL MCH 32.0 (27.0-33.0) pg MCHC 33.9 (31.0-36.0) g/dl RDW 13.6 (11.0-16.0) % Plt Count 182 (160-400) X10*3/uL MPV 10.4 (9.4-12.4) fL Immature Gran % (Auto) 0.4 (0.0-0.4) % Neut % (Auto) 45.3 (45-73) % Lymph % (Auto) 37.4 (20-40) % Kaufman % (Auto) 10.7 (2-11) % Eos % (Auto) 5.3 H (0-4) % Baso % (Auto) 0.9 (0-2) % Lymph # (Auto) 2.6 (1.2-4.9) X10*3/uL Kaufman # (Auto) 0.8 (0.1-1.2) X10*3/uL Eos # (Auto) 0.4 (0.0-0.4) X10*3/uL Baso # (Auto) 0.1 (0.0-0.2) X10*3/uL Abs Immat Gran (auto) 0.03 (0.00-0.03) X10*3/uL Absolute Neuts (auto) 3.2 (2.0-8.3) x10*3/uL Absolute Nucleated RBC 0.000 (0.0-0.012) X10*3/uL Nucleated RBC % (auto) 0.0 (0.0-0.2) /100WBC PT 13.3 H (10.9-12.4) SEC INR 1.1 (0.9-1.1) Sodium 143 (135-145) mmol/L Potassium 4.0 D (3.3-5.1) mmol/L Chloride 113 H (96-108) mmol/L Carbon Dioxide 23 (22-29) mmol/L Anion Gap 11 L (12-20) BUN 19 H (9-16) mg/dL Creatinine 0.88 (0.5-1.4) mg/dL Estim Creat Clear Calc 78.1 Estimated GFR > 60 Random Glucose 101 (60-115) mg/dL Calcium 9.0 (8.4-10.2) mg/dL Magnesium 2.0 (1.6-2.6) mg/dL Total Bilirubin 0.2 (0.0-1.0) mg/dL Direct Bilirubin < 0.2 (0.0-0.5) mg/dL AST 29 (5-37) U/L ALT 23 (0-40) U/L Alkaline Phosphatase 76 (39-117) U/L Total Protein 6.3 L (6.5-8.0) g/dL Albumin 3.4 L (3.5-5.0) g/dL Urine Color Yellow Urine Appearance Turbid Urine pH 7.5 (5.0-9.0) Ur Specific [place] 1.015 (1.005-1.025) Urine Protein 30 (1+) H (Neg-Trace) mg/dL Urine Glucose (UA) Negative (Negative) mg/dL Urine Ketones Negative (Negative) mg/dL Urine Blood Trace H (Negative) Urine Nitrite Positive H (Negative) Ur Leukocyte Esterase Large (3+) H (Negative) Urine RBC 3-5 H (0-2) /HPF Urine WBC >50 H (0-5) /HPF Ur Squamous Epith Cells 0-2 (0-2) /HPF Urine Bacteria 4+ (None Seen) Hyaline Casts 0-2 (0-2) /LPF Urine Opiates Screen Not Detected (Not Detect) Ur Buprenorphine Scrn Not Detected (Not Detect) ng/mL Ur Oxycodone Screen Not Detected (Not Detect) ng/mL Urine Methadone Screen Not Detected (Not Detect) ng/mL Urine Fentanyl Screen Not Detected (Not Detect) Ur Barbiturates Screen Not Detected (Not Detect) Ur Phencyclidine Scrn Not Detected (Not Detect) Ur Amphetamines Screen Not Detected (Not Detect) U Benzodiazepines Scrn Not Detected (Not Detect) Urine Cocaine Screen Not Detected (Not Detect) U Marijuana (THC) Screen Not Detected (Not Detect) Ethyl Alcohol < 10 mg/dL COVID-19 (CONNIE) Negative (Negative) COVID-19 Clin Com See Note Discharge Plan Discharge Clinical Impression: Multiple falls, Weakness, Acute UTI Patient Disposition: Still a Patient Prescriptions: No Action tizanidine 4 mg tablet 4 mg PO Q8H PRN (Reason: muscle spasticity) Qty: 60 4RF naproxen 500 mg tablet 500 mg PO BID Qty: 60 2RF amlodipine 10 mg tablet 10 mg PO DAILY Qty: 90 0RF tramadol 50 mg tablet 50 mg PO Q8H PRN (Reason: pain) Qty: 30 1RF atenolol 25 mg tablet 25 mg PO DAILY Qty: 90 0RF diclofenac sodium [Voltaren Arthritis Pain] 1 % gel 4 g topical QID Qty: 100 4RF Rx Instructions: apply to single knee, ankle, foot; for foot includes sole/toes/top of foot dicyclomine 20 mg tablet 20 mg PO QID Qty: 30 4RF finasteride 5 mg tablet 5 mg PO DAILY 90 Days Qty: 90 2RF furosemide 20 mg tablet 20 mg PO DAILY Qty: 90 8RF meclizine 25 mg tablet 25 mg PO QID PRN (Reason: dizziness) Qty: 30 2RF aspirin 81 mg capsule 81 mg PO DAILY polyethylene glycol 3350 [Miralax] 17 gram/dose powder 17 g PO DAILY PRN (Reason: Constipation) Print Language: Ethiopian
[2024-10-17 21:59] VITALS: BP 171/78; PULSE 51; RESP 22; TEMP 36.6; O2SAT 97
[2024-10-17 22:07] LABS: Troponin-I High Sensitivity 12.5 ng/L (<3.5-35.0)
[2024-10-17] MEDS: cefuroxime axetiL 250 MG TABLET PO (22:12)
[2024-10-18 03:55] VITALS: BP 132/60; PULSE 55; RESP 18; TEMP 36.7; O2SAT 97
[2024-10-18] MEDS: cefuroxime axetiL 250 MG TABLET PO ×2 (08:06→20:52)
[2024-10-18 08:08] VITALS: BP 163/81; PULSE 62; RESP 18; O2SAT 97
--- NOTE | 2024-10-18 08:38 | MHC.CM.PN ---
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 Addendum entered by Alejandrina Woodall RN 10/18/24 12:39: TASK SENT TO REGISTRATION TO VERIFY MH. Addendum entered by Alejandrina Woodall RN 10/18/24 12:36: CM MET W/PT TO DISCUSS DISPO, PT REPORTS FALLING AT HOME AND WOULD LIKE STR AND/OR LTC, PT REPORTS HE WAS APPROVED FOR MH AND VERIFIES HIS [employer] MEDICARE, PT WILL BE EVALUATED W/P.T. THURSDAY 10/19, PT HAS NO PREFERENCE OF FACILITIES AND REFERRAL PLACED. Original Note: CM RECEIVED CXM CONSULT FROM ED PROVIDER DIDI AMANDA PT W/MULTIPLE FALLS AT HOME, LIVES ALONE WILL NEED PT EVAL AND INS AUTH FOR STR, CM TO MEET W/PT LATER THIS AM.
--- NOTE | 2024-10-18 09:21 | PHA.MEDREC ---
Addendum entered by Vernon Gilmore RPh 10/18/24 10:22: Med rec was reviewed by [facility]. Original Note: Pharmacy Consult ? Medication Reconciliation Pharmacy has completed the medication reconciliation. Spoke to pt to confirm meds. Per pt, has not taken atenolol in months because it drastically lowers their BP.
--- NOTE | 2024-10-18 10:13 | PC.NURSE ---
Pharmacy called for med rec
[2024-10-18 11:14] VITALS: BP 156/70; PULSE 56; RESP 14; TEMP 36.9; O2SAT 98
[2024-10-18] MEDS: NaPROXEN 500 MG TABLET PO ×2 (13:06→20:53)
[2024-10-18] MEDS: Dicyclomine HCl 10 MG CAPSULE 20 MG PO ×3 (13:07→20:52)
--- NOTE | 2024-10-18 16:31 | PC.NURSE ---
spoker with FAUSTINO Gutierres in pharmacy--- pharmacy unable to change times on AM meds- okay to remove as one time dose from pyxis
[2024-10-18] MEDS: Aspirin Enteric Coated 81 MG TABLET.DR PO (16:36)
[2024-10-18 16:38] VITALS: BP 137/70
[2024-10-19 00:46] VITALS: BP 147/78; PULSE 57; RESP 16; TEMP 36.4; O2SAT 97
--- NOTE | 2024-10-19 01:08 | MHC.EDTECH ---
Pt requesting to be cleaned up, so t/w gave Pt a bed bath. New linens on bed and new hospital gown given to Pt. Pillow placed on left side, warm blankets given and call toure within reach. Vital signs up to date.
--- NOTE | 2024-10-19 01:44 | PC.NURSE ---
Report taken from Joan JIMENEZ assumed care of pt at this time. A&Ox3 skin pwd respirations even unlabored, offers no complaints. CM bedsearch, will continue to monitor.
[2024-10-19] MEDS: Dicyclomine HCl 10 MG CAPSULE 20 MG PO ×2 (09:02→14:58)
[2024-10-19 09:05] VITALS: BP 143/64; PULSE 56; RESP 16; TEMP 37.1; O2SAT 97
[2024-10-19] MEDS: cefuroxime axetiL 250 MG TABLET PO (09:06)
[2024-10-19] MEDS: NaPROXEN 500 MG TABLET PO (09:07)
[2024-10-19 09:08] VITALS: BP 143/64
[2024-10-19] MEDS: Furosemide 20 MG TABLET PO (09:08)
[2024-10-19] MEDS: amLODIPine Besylate 10 MG TABLET PO (09:08)
[2024-10-19] MEDS: Aspirin Enteric Coated 81 MG TABLET.DR PO (09:09)
[2024-10-19] MEDS: Finasteride 5 MG TABLET PO (09:10)
--- NOTE | 2024-10-19 12:34 | HO.SKINPHOTO ---
Location: Category: Stage: Length: Width: Depth: cm Location: Category: Stage: Length: Width: Depth: cm Location: Category: Stage: Length: Width: Depth: cm Location: Category: Stage: Length: Width: Depth: cm Location: Category: Stage: Length: Width: Depth: cm Location: Category: Stage: Length: Width: Depth: cm
--- NOTE | 2024-10-19 12:40 | MHC.CM.ED ---
Patient remains in [facility]. Attempted to meet with patient to discuss bed offers. Nursing care currently being provided. Spoke with patient's son, Rene RUIZ, via telephone at [phone]. [facility], [facility], [facility], [facility], and [address] [place] [address] are willing to offer a bed. Rene RUIZ accepts bed at [facility]. [facility] has been asked to obtain insurance auth. Continue to monitor for d/c needs.
--- NOTE | 2024-10-19 14:21 | PC.NURSE ---
PT given Bed bath, candelaria care and oral care provided as well, Skin protector barrier cream applied to the patients coccyx area. See other note for pt bottom, pt coccyx red & non blanchable pt repositioned with skin protector applied.
--- NOTE | 2024-10-19 15:45 | MHC.CM.ED ---
Insurance auth has been obtained by Aramis Brown of [place]. Mandy RIVERA booked for 530pm. Med nec with chart. Patient, Joan ROSY and Mavis COHEN aware. Spoke with patient's son, Rene, via telephone at [phone]. Rene aware of d/c plan. Continue to monitor for d/c needs.
--- NOTE | 2024-10-19 18:00 | PC.NURSE ---
Called SNF for Nurse to Nurse report transferred to unit 4 report given to TONY Choi at [facility].
== END 2024-10-19 18:06 ==
PROVIDERS: Emergency Provider Emergency Medicine; PCP Internal Medicine
DX: R29.6 Repeated falls (principal); R53.1 Weakness; N39.0 Urinary tract infection, site not specified; B96.89 Other specified bacterial agents as the cause of diseases classified elsewhere; R00.1 Bradycardia, unspecified; F17.210 Nicotine dependence, cigarettes, uncomplicated; Z91.81 History of falling; Z11.52 Encounter for screening for COVID-19; Z79.899 Other long term (current) drug therapy
CPT/HCPCS: 70450; 72125; 80048; 80076; 80307; 81001; 83735; 84484; 85025; 85610; 87086; 87088; 87186; 87635; 93005; 97162; 99285

== ENCOUNTER → 2024-10-17 19:44 | Outpatient (BNV) | payer MEDICARE, SELFPAY | PROVIDERS: Emergency Provider Emergency Medicine; PCP Internal Medicine; Visit Provider Radiology Neuroradiology | DX: M54.2 Cervicalgia (principal) | CPT/HCPCS: 70450; 72125 ==

== ENCOUNTER → 2024-10-17 19:45 | Outpatient (BNV) | payer MEDICARE, SELFPAY | PROVIDERS: Emergency Provider Emergency Medicine; PCP Internal Medicine; Visit Provider Internal Medicine Cardiovascular Disease | DX: R00.0 Tachycardia, unspecified (principal) | CPT/HCPCS: 93010 ==